=== PATIENT | female | born 1970 | race Caucasian/White ===

== ENCOUNTER → 2017-03-30 | Outpatient (CLI) | payer OTHER ==
[~2017-03-30] MED LIST: BARIUM SUSPENSION 2.1% (VANILLA SILQ) 450 ML PO ONE; CATHETER FLUSH 10 ML SYR IV PRN; IOHEXOL 350 MG/ML 100 ML (OMNIPAQUE 350) VIAL IV ONE; NS 100 ML (IVPB) BAG IV ONE
--- NOTE | 2017-03-30 13:43 | Diagnostic Imaging Report ---
PROCEDURE: CT chest and abdomen with contrast. TECHNIQUE: Multiple contiguous axial images were obtained through the chest and abdomen after the administration of intravenous contrast. INDICATION: Pancreatic cancer. No priors. FINDINGS: Chest: No lung mass or suspicious pulmonary nodule. There is no thoracic adenopathy or effusion. No infiltrate. Osseous structures unremarkable. Abdomen and pelvis: There is resection of the pancreatic head and neck with no abscess, hematoma or findings of anastomotic leak. There is no extravasation of the enteric contrast media which has reached the mid small bowel. There is patency of the celiac, the superior mesenteric and the inferior mesenteric as well as those vessels' primary branches. Stomach was not felt pathologically distended. There is a moderate severity of hepatic steatosis without an appreciable liver mass. There is no adrenal lesion. Kidneys unobstructed. There is some postoperative induration of the abdominal wall subcutaneous fat with no rectus sheath defect or fluid collection. There is no ascites. No free air. IMPRESSION: 1. Chest: No evidence of metastatic disease. 2. Abdomen: Recent postoperative change without fluid collection, biliary dilatation, adenopathy or mass. Dictated by: Dictated on workstation # [id number]
== END ==
LOC: RAD 11:45
PROVIDERS: ATTEND Internal Medicine Hematology & Oncology
DX: C25.9 Malignant neoplasm of pancreas, unspecified (principal); Z98.890 Other specified postprocedural states
CPT/HCPCS: 71260; 74160

== ENCOUNTER 2017-06-01 13:41 | Outpatient (RCR) | payer OTHER ==
[2017-03-30 11:37] LABS: BASOPHILS % (AUTO) 1 % (0-10); EOSINOPHILS # (AUTO) 0.1 10^3/uL (0.0-0.3); EOSINOPHILS % (AUTO) 2 % (0-10); HEMATOCRIT 36 % (35-52); HEMOGLOBIN 11.8 G/DL (11.5-16.0); LYMPHOCYTES # (AUTO) 1.4 X 10^3 (1.0-4.0); LYMPHOCYTES % (AUTO) 37 % (12-44); MEAN CORPUSCULAR HEMOGLOBIN 29 PG (25-34); MEAN CORPUSCULAR HGB CONC 33 G/DL (32-36); MEAN CORPUSCULAR VOLUME 88 FL (80-99); MEAN PLATELET VOLUME 11.8 FL (7.4-10.4); MONOCYTES # (AUTO) 0.4 X 10^3 (0.0-1.0); MONOCYTES % (AUTO) 10 % (0-12); NEUTROPHILS # (AUTO) 1.8 X 10^3 (1.8-7.8); NEUTROPHILS % (AUTO) 50 % (42-75); PLATELET COUNT 183 10^3/uL (130-400); RED BLOOD COUNT 4.09 10^6/uL (4.35-5.85); RED CELL DISTRIBUTION WIDTH 13.5 % (10.0-14.5); WHITE BLOOD COUNT 3.7 10^3/uL (4.3-11.0)
[2017-03-30 12:02] LABS: ALANINE AMINOTRANSFERASE 23 U/L (0-55); ALBUMIN 3.4 GM/DL (3.2-4.5); ALKALINE PHOSPHATASE 59 U/L (40-136); BILIRUBIN,TOTAL 0.9 MG/DL (0.1-1.0); BUN/CREATININE RATIO 18; CALCIUM 8.9 MG/DL (8.5-10.1); CARBON DIOXIDE 24 MMOL/L (21-32); CHLORIDE 108 MMOL/L (98-107); CREATININE SERUM 0.66 MG/DL (0.60-1.30); GFR ESTIMATED > 60; GLUCOSE 91 MG/DL (70-105); SODIUM 141 MMOL/L (135-145); TOTAL PROTEIN 6.3 GM/DL (6.4-8.2)
[2017-04-06 14:21] LABS: BASOPHILS % (AUTO) 1 % (0-10); EOSINOPHILS % (AUTO) 2 % (0-10); HEMATOCRIT 35 % (35-52); HEMOGLOBIN 11.7 G/DL (11.5-16.0); LYMPHOCYTES # (AUTO) 0.9 X 10^3 (1.0-4.0); LYMPHOCYTES % (AUTO) 67 % (12-44); MEAN CORPUSCULAR HEMOGLOBIN 29 PG (25-34); MEAN CORPUSCULAR HGB CONC 33 G/DL (32-36); MEAN CORPUSCULAR VOLUME 86 FL (80-99); MEAN PLATELET VOLUME 11.4 FL (7.4-10.4); MONOCYTES # (AUTO) 0.1 X 10^3 (0.0-1.0); MONOCYTES % (AUTO) 8 % (0-12); NEUTROPHILS # (AUTO) 0.3 X 10^3 (1.8-7.8); NEUTROPHILS % (AUTO) 23 % (42-75); PLATELET COUNT 155 10^3/uL (130-400); RED BLOOD COUNT 4.07 10^6/uL (4.35-5.85); RED CELL DISTRIBUTION WIDTH 12.7 % (10.0-14.5)
[2017-04-06 14:25] LABS: BUN/CREATININE RATIO 8; CALCIUM 8.9 MG/DL (8.5-10.1); CARBON DIOXIDE 25 MMOL/L (21-32); CHLORIDE 107 MMOL/L (98-107); CREATININE SERUM 0.62 MG/DL (0.60-1.30); GFR ESTIMATED > 60; GLUCOSE 121 MG/DL (70-105); POTASSIUM 3.8 MMOL/L (3.6-5.0); SODIUM 141 MMOL/L (135-145)
[2017-04-06 14:27] LABS: WHITE BLOOD COUNT 1.3 10^3/uL (4.3-11.0)
[2017-04-13 13:34] LABS: BASOPHILS % (AUTO) 0 % (0-10); EOSINOPHILS % (AUTO) 1 % (0-10); HEMATOCRIT 33 % (35-52); LYMPHOCYTES # (AUTO) 0.8 X 10^3 (1.0-4.0); LYMPHOCYTES % (AUTO) 50 % (12-44); MEAN CORPUSCULAR HEMOGLOBIN 29 PG (25-34); MEAN CORPUSCULAR HGB CONC 33 G/DL (32-36); MEAN CORPUSCULAR VOLUME 87 FL (80-99); MEAN PLATELET VOLUME 10.1 FL (7.4-10.4); MONOCYTES # (AUTO) 0.1 X 10^3 (0.0-1.0); MONOCYTES % (AUTO) 9 % (0-12); NEUTROPHILS # (AUTO) 0.6 X 10^3 (1.8-7.8); NEUTROPHILS % (AUTO) 40 % (42-75); PLATELET COUNT 139 10^3/uL (130-400); RED BLOOD COUNT 3.83 10^6/uL (4.35-5.85); RED CELL DISTRIBUTION WIDTH 13.1 % (10.0-14.5); WHITE BLOOD COUNT 1.5 10^3/uL (4.3-11.0)
[2017-04-13 13:51] LABS: BUN/CREATININE RATIO 11; CALCIUM 8.3 MG/DL (8.5-10.1); CARBON DIOXIDE 25 MMOL/L (21-32); CHLORIDE 107 MMOL/L (98-107); GFR ESTIMATED > 60; GLUCOSE 108 MG/DL (70-105); POTASSIUM 3.9 MMOL/L (3.6-5.0); SODIUM 139 MMOL/L (135-145)
[2017-04-21 13:20] LABS: BASOPHILS % (AUTO) 1 % (0-10); EOSINOPHILS % (AUTO) 0 % (0-10); HEMATOCRIT 33 % (35-52); HEMOGLOBIN 11.2 G/DL (11.5-16.0); LYMPHOCYTES # (AUTO) 0.5 X 10^3 (1.0-4.0); LYMPHOCYTES % (AUTO) 38 % (12-44); MEAN CORPUSCULAR HEMOGLOBIN 29 PG (25-34); MEAN CORPUSCULAR HGB CONC 34 G/DL (32-36); MEAN CORPUSCULAR VOLUME 85 FL (80-99); MONOCYTES # (AUTO) 0.1 X 10^3 (0.0-1.0); MONOCYTES % (AUTO) 11 % (0-12); NEUTROPHILS # (AUTO) 0.7 X 10^3 (1.8-7.8); NEUTROPHILS % (AUTO) 51 % (42-75); PLATELET COUNT 123 10^3/uL (130-400); RED BLOOD COUNT 3.89 10^6/uL (4.35-5.85)
[2017-04-21 13:22] LABS: WHITE BLOOD COUNT 1.3 10^3/uL (4.3-11.0)
[2017-04-21 13:45] LABS: BUN/CREATININE RATIO 4; CALCIUM 8.5 MG/DL (8.5-10.1); CARBON DIOXIDE 26 MMOL/L (21-32); CHLORIDE 103 MMOL/L (98-107); CREATININE SERUM 0.71 MG/DL (0.60-1.30); GFR ESTIMATED > 60; GLUCOSE 107 MG/DL (70-105); SODIUM 139 MMOL/L (135-145)
[2017-04-27 08:58] LABS: BASOPHILS % (AUTO) 1 % (0-10); EOSINOPHILS % (AUTO) 1 % (0-10); HEMATOCRIT 33 % (35-52); LYMPHOCYTES # (AUTO) 0.6 X 10^3 (1.0-4.0); LYMPHOCYTES % (AUTO) 46 % (12-44); MEAN CORPUSCULAR HEMOGLOBIN 29 PG (25-34); MEAN CORPUSCULAR HGB CONC 34 G/DL (32-36); MEAN CORPUSCULAR VOLUME 86 FL (80-99); MEAN PLATELET VOLUME 10.4 FL (7.4-10.4); MONOCYTES # (AUTO) 0.2 X 10^3 (0.0-1.0); MONOCYTES % (AUTO) 19 % (0-12); NEUTROPHILS # (AUTO) 0.4 X 10^3 (1.8-7.8); NEUTROPHILS % (AUTO) 34 % (42-75); PLATELET COUNT 88 10^3/uL (130-400); RED BLOOD COUNT 3.79 10^6/uL (4.35-5.85); RED CELL DISTRIBUTION WIDTH 15.1 % (10.0-14.5)
[2017-04-27 09:01] LABS: WHITE BLOOD COUNT 1.2 10^3/uL (4.3-11.0)
[2017-04-27 09:16] LABS: ALANINE AMINOTRANSFERASE 50 U/L (0-55); ALBUMIN 3.6 GM/DL (3.2-4.5); ALKALINE PHOSPHATASE 63 U/L (40-136); BILIRUBIN,TOTAL 1.4 MG/DL (0.1-1.0); BUN/CREATININE RATIO 5; CALCIUM 8.3 MG/DL (8.5-10.1); CARBON DIOXIDE 28 MMOL/L (21-32); CHLORIDE 106 MMOL/L (98-107); CREATININE SERUM 0.82 MG/DL (0.60-1.30); GFR ESTIMATED > 60; GLUCOSE 113 MG/DL (70-105); POTASSIUM 3.3 MMOL/L (3.6-5.0); SODIUM 142 MMOL/L (135-145); TOTAL PROTEIN 6.5 GM/DL (6.4-8.2)
[2017-05-01 11:22] LABS: BASOPHILS % (AUTO) 1 % (0-10); EOSINOPHILS % (AUTO) 2 % (0-10); HEMATOCRIT 34 % (35-52); HEMOGLOBIN 11.4 G/DL (11.5-16.0); LYMPHOCYTES # (AUTO) 0.4 X 10^3 (1.0-4.0); LYMPHOCYTES % (AUTO) 27 % (12-44); MEAN CORPUSCULAR HEMOGLOBIN 29 PG (25-34); MEAN CORPUSCULAR HGB CONC 34 G/DL (32-36); MEAN CORPUSCULAR VOLUME 87 FL (80-99); MEAN PLATELET VOLUME 11.2 FL (7.4-10.4); MONOCYTES # (AUTO) 0.4 X 10^3 (0.0-1.0); MONOCYTES % (AUTO) 28 % (0-12); NEUTROPHILS # (AUTO) 0.6 X 10^3 (1.8-7.8); NEUTROPHILS % (AUTO) 42 % (42-75); PLATELET COUNT 199 10^3/uL (130-400); RED BLOOD COUNT 3.91 10^6/uL (4.35-5.85)
[2017-05-01 11:24] LABS: WHITE BLOOD COUNT 1.4 10^3/uL (4.3-11.0)
[2017-05-01 11:40] LABS: ALANINE AMINOTRANSFERASE 30 U/L (0-55); ALBUMIN 3.5 GM/DL (3.2-4.5); ALKALINE PHOSPHATASE 74 U/L (40-136); BILIRUBIN,TOTAL 1.1 MG/DL (0.1-1.0); BUN/CREATININE RATIO 6; CALCIUM 8.5 MG/DL (8.5-10.1); CARBON DIOXIDE 27 MMOL/L (21-32); CHLORIDE 105 MMOL/L (98-107); CREATININE SERUM 0.67 MG/DL (0.60-1.30); GFR ESTIMATED > 60; GLUCOSE 112 MG/DL (70-105); POTASSIUM 3.6 MMOL/L (3.6-5.0); SODIUM 140 MMOL/L (135-145); TOTAL PROTEIN 6.5 GM/DL (6.4-8.2)
[2017-05-08 14:06] LABS: BASOPHILS % (AUTO) 1 % (0-10); EOSINOPHILS # (AUTO) 0.3 10^3/uL (0.0-0.3); EOSINOPHILS % (AUTO) 10 % (0-10); HEMATOCRIT 36 % (35-52); HEMOGLOBIN 12.1 G/DL (11.5-16.0); LYMPHOCYTES # (AUTO) 0.4 X 10^3 (1.0-4.0); LYMPHOCYTES % (AUTO) 15 % (12-44); MEAN CORPUSCULAR HEMOGLOBIN 30 PG (25-34); MEAN CORPUSCULAR HGB CONC 34 G/DL (32-36); MEAN CORPUSCULAR VOLUME 88 FL (80-99); MEAN PLATELET VOLUME 11.7 FL (7.4-10.4); MONOCYTES # (AUTO) 0.7 X 10^3 (0.0-1.0); MONOCYTES % (AUTO) 23 % (0-12); NEUTROPHILS # (AUTO) 1.4 X 10^3 (1.8-7.8); NEUTROPHILS % (AUTO) 51 % (42-75); PLATELET COUNT 202 10^3/uL (130-400); RED BLOOD COUNT 4.09 10^6/uL (4.35-5.85); RED CELL DISTRIBUTION WIDTH 18.4 % (10.0-14.5); WHITE BLOOD COUNT 2.8 10^3/uL (4.3-11.0)
[2017-05-15 14:41] LABS: BASOPHILS % (AUTO) 1 % (0-10); EOSINOPHILS # (AUTO) 0.1 10^3/uL (0.0-0.3); EOSINOPHILS % (AUTO) 6 % (0-10); HEMATOCRIT 33 % (35-52); HEMOGLOBIN 12.1 G/DL (11.5-16.0); LYMPHOCYTES # (AUTO) 0.2 X 10^3 (1.0-4.0); LYMPHOCYTES % (AUTO) 9 % (12-44); MEAN CORPUSCULAR HEMOGLOBIN 30 PG (25-34); MEAN CORPUSCULAR HGB CONC 37 G/DL (32-36); MEAN CORPUSCULAR VOLUME 81 FL (80-99); MEAN PLATELET VOLUME 11.2 FL (7.4-10.4); MONOCYTES # (AUTO) 0.4 X 10^3 (0.0-1.0); MONOCYTES % (AUTO) 19 % (0-12); NEUTROPHILS # (AUTO) 1.5 X 10^3 (1.8-7.8); NEUTROPHILS % (AUTO) 65 % (42-75); PLATELET COUNT 142 10^3/uL (130-400); RED BLOOD COUNT 4.07 10^6/uL (4.35-5.85); RED CELL DISTRIBUTION WIDTH 17.8 % (10.0-14.5); WHITE BLOOD COUNT 2.3 10^3/uL (4.3-11.0)
[2017-05-15 14:53] LABS: ALANINE AMINOTRANSFERASE 30 U/L (0-55); ALBUMIN 3.8 GM/DL (3.2-4.5); ALKALINE PHOSPHATASE 73 U/L (40-136); BILIRUBIN,TOTAL 1.2 MG/DL (0.1-1.0); BUN/CREATININE RATIO 8; CARBON DIOXIDE 27 MMOL/L (21-32); CHLORIDE 103 MMOL/L (98-107); CREATININE SERUM 0.73 MG/DL (0.60-1.30); GFR ESTIMATED > 60; GLUCOSE 135 MG/DL (70-105); POTASSIUM 3.6 MMOL/L (3.6-5.0); SODIUM 139 MMOL/L (135-145); TOTAL PROTEIN 6.9 GM/DL (6.4-8.2)
[2017-05-26 10:11] LABS: BASOPHILS % (AUTO) 1 % (0-10); EOSINOPHILS # (AUTO) 0.3 10^3/uL (0.0-0.3); EOSINOPHILS % (AUTO) 14 % (0-10); HEMATOCRIT 35 % (35-52); LYMPHOCYTES # (AUTO) 0.2 X 10^3 (1.0-4.0); LYMPHOCYTES % (AUTO) 7 % (12-44); MEAN CORPUSCULAR HEMOGLOBIN 31 PG (25-34); MEAN CORPUSCULAR HGB CONC 34 G/DL (32-36); MEAN CORPUSCULAR VOLUME 89 FL (80-99); MEAN PLATELET VOLUME 10.8 FL (7.4-10.4); MONOCYTES # (AUTO) 0.4 X 10^3 (0.0-1.0); MONOCYTES % (AUTO) 17 % (0-12); NEUTROPHILS # (AUTO) 1.3 X 10^3 (1.8-7.8); NEUTROPHILS % (AUTO) 61 % (42-75); PLATELET COUNT 120 10^3/uL (130-400); RED BLOOD COUNT 3.94 10^6/uL (4.35-5.85); RED CELL DISTRIBUTION WIDTH 17.8 % (10.0-14.5); WHITE BLOOD COUNT 2.2 10^3/uL (4.3-11.0)
[2017-05-26 10:31] LABS: ALANINE AMINOTRANSFERASE 43 U/L (0-55); ALBUMIN 3.7 GM/DL (3.2-4.5); ALKALINE PHOSPHATASE 68 U/L (40-136); BILIRUBIN,TOTAL 0.9 MG/DL (0.1-1.0); BUN/CREATININE RATIO 7; CALCIUM 9.2 MG/DL (8.5-10.1); CARBON DIOXIDE 27 MMOL/L (21-32); CHLORIDE 105 MMOL/L (98-107); CREATININE SERUM 0.71 MG/DL (0.60-1.30); GFR ESTIMATED > 60; GLUCOSE 136 MG/DL (70-105); POTASSIUM 4.1 MMOL/L (3.6-5.0); SODIUM 142 MMOL/L (135-145); TOTAL PROTEIN 6.8 GM/DL (6.4-8.2)
[~2017-06-01] VITALS: Ht 175.9 cm; Wt 91.6 kg
[~2017-06-01 13:41] MED LIST changes: -BARIUM SUSPENSION 2.1% (VANILLA SILQ) 450 ML PO ONE; -CATHETER FLUSH 10 ML SYR IV PRN; +GEMCITABINE HCL (GENERIC) 1,000 MG, GEMCITABINE HCL (GENERIC) 700 MG in NS (IVPB) CANCE... IV SCH; +GEMCITABINE HCL IV SCH; -IOHEXOL 350 MG/ML 100 ML (OMNIPAQUE 350) VIAL IV ONE; -NS 100 ML (IVPB) BAG IV ONE; +NS IV 500 ML (CANCER CENTER) IV SCH; +ONDANSETRON 16 MG, DEXAMETHASONE 10 MG/NS 50 ML IVPB IV SCH; +[UNRECOGNIZED DRUG - OTHER] IV SCH
== END 2017-06-02 13:49 | disposition home or self-care (01) ==
LOC: ONC 13:41
PROVIDERS: ATTEND Internal Medicine Hematology & Oncology
DX: Z51.0 Encounter for antineoplastic radiation therapy (principal); Z51.11 Encounter for antineoplastic chemotherapy; C25.0 Malignant neoplasm of head of pancreas; I10 Essential (primary) hypertension; M32.9 Systemic lupus erythematosus, unspecified
CPT/HCPCS: 36415; 77300; 77301; 77332; 77334; 77336; 77338; 77385; 77386; 77470; 80048; 80053; 83735; 85025; 86301; 96375; 96413; 99213; 99214

== ENCOUNTER → 2017-07-15 | Outpatient (CLI) | payer OTHER ==
[~2017-07-15] MED LIST changes: +BARIUM SUSPENSION 2.1% (VANILLA SILQ) 450 ML PO ONE; +CATHETER FLUSH 10 ML SYR IV PRN; -GEMCITABINE HCL (GENERIC) 1,000 MG, GEMCITABINE HCL (GENERIC) 700 MG in NS (IVPB) CANCE... IV SCH; -GEMCITABINE HCL IV SCH; +IOHEXOL 350 MG/ML 100 ML (OMNIPAQUE 350) VIAL IV ONE; +NS 250 ML (IVPB) BAG IV ONE; -NS IV 500 ML (CANCER CENTER) IV SCH; -ONDANSETRON 16 MG, DEXAMETHASONE 10 MG/NS 50 ML IVPB IV SCH; -[UNRECOGNIZED DRUG - OTHER] IV SCH
--- NOTE | 2017-07-15 15:59 | Diagnostic Imaging Report ---
PROCEDURE: CT chest and abdomen with contrast. TECHNIQUE: Multiple contiguous axial images were obtained through the chest and abdomen after the administration of intravenous contrast. INDICATION: Pancreatic carcinoma. The study is performed for restaging. Correlation is made with prior study from 03/30/2017. CT chest: Small lymph nodes in the axillae bilaterally are noted. No pathologically enlarged nodes are seen. No hilar or mediastinal lymphadenopathy is detected. No pericardial or pleural fluid is identified. Tiny calcified subpleural nodule posterolateral right lower lobe is stable consistent with granuloma. No noncalcified pulmonary nodules or masses are seen. CT abdomen: Diffuse low-density throughout the liver is again noted consistent with hepatic steatosis. Ill-defined low density is identified in the inferior right lobe of the liver anteriorly, image 102 measuring 17 mm. It is nonspecific. This could represent an area of geographic fatty infiltration but close followup is recommended. Developing liver mass cannot be entirely excluded. Gallbladder is surgically absent. Postsurgical changes are again noted with resection of the pancreatic head and neck. The pancreatic body and tail are unremarkable. No pancreatic ductal dilatation is seen. The spleen is unremarkable. No adrenal mass is seen. Kidneys are unremarkable. Aorta is not aneurysmal. No central retroperitoneal lymphadenopathy is seen. Stomach is nondistended. There are no fluid collections identified. There is some induration in the fat in the right upper quadrant, similar to prior exam but no discrete mass is seen. Bowel loops are nondistended. There is no ascites. IMPRESSION: Postsurgical changes of a Whipple procedure. No residual or recurrent mass identified. There is hepatic steatosis present. There has been development of a small region of low density in the right lobe of the liver, described above and indeterminant. Continued close followup is recommended to confirm stability or resolution. No additional new abnormality is identified. Dictated by: Dictated on workstation # [id number]
== END ==
LOC: RAD 12:57
PROVIDERS: ATTEND Internal Medicine Hematology & Oncology
DX: C25.9 Malignant neoplasm of pancreas, unspecified (principal); K76.0 Fatty (change of) liver, not elsewhere classified; Z90.89 Acquired absence of other organs; Z98.890 Other specified postprocedural states
CPT/HCPCS: 71260; 74160

== ENCOUNTER → 2017-08-17 | Outpatient (CLI) | payer OTHER ==
--- NOTE | 2017-08-17 15:58 | Diagnostic Imaging Report ---
INDICATION: Abdominal pain and vomiting. Patient has history of pancreatic carcinoma. TIME OF EXAM: 02:57 p.m. There are surgical clips in the right upper quadrant as well as within the pelvis. Bowel gas pattern is normal. No bowel obstruction is seen. No free air is identified. No pathologic calcifications are identified. IMPRESSION: No acute abnormality is detected. Results were discussed with Dr. Tolliver prior to this dictation. Dictated by: Dictated on workstation # [id number]
== END ==
LOC: RAD 14:23
PROVIDERS: ATTEND Internal Medicine Hematology & Oncology
DX: C25.0 Malignant neoplasm of head of pancreas (principal)
CPT/HCPCS: 74018

== ENCOUNTER → 2017-10-12 | Outpatient (CLI) | payer OTHER ==
[~2017-10-12] MED LIST changes: +NS 100 ML (IVPB) BAG IV ONE; -NS 250 ML (IVPB) BAG IV ONE
--- NOTE | 2017-10-12 12:51 | Diagnostic Imaging Report ---
PROCEDURE: CT chest and abdomen with contrast. INDICATION: Pancreatic cancer. COMPARISON: Exam compared to 07/15/2017. TECHNIQUE: Oral contrast media was administered. IV contrast given. CT chest and abdomen then performed. FINDINGS: CHEST: There has been the development of small right and minute left pleural effusions. The pleural fluid is nonloculated and on the right layers to a maximal depth of 1.8 cm with trace subjacent passive atelectasis. There is no lung mass or suspicious pulmonary nodule, and there is no thoracic lymphadenopathy. No destructive osseous lesion. ABDOMEN: Postsurgical changes of a Whipple present. In the right upper quadrant adjacent to the resection margin of the pancreas is tubular tortuous soft tissue presumed to be the segment of small bowel and reflective of the hepaticojejunostomy. No definite regional abnormal soft tissue is found, and the residual pancreatic parenchyma appears unremarkable. There is hepatic steatosis with foci of relative hypodensity in the periphery of the liver no longer apparent. There are a few zones of relative fatty sparing. No liver masses felt present, and there is no pathological dilatation of the bile ducts. Spleen is unremarkable. There is a small volume ascites, perhaps minimally increased without evidence for its loculation. The adrenals are negative, and the kidneys are unobstructed. There is thickening of the shore of the visualized ascending colon and proximal transverse colon consistent with nonspecific colitis; correlate with any symptomatology. No soft tissue mass along the root of the mesentery. The periaortic retroperitoneum is unremarkable. No abdominal wall fluid collection. IMPRESSION: CHEST: Minute left and small right pleural effusions with no lung mass or adenopathy. No evidence for PE. ABDOMEN: Fatty infiltration of the liver with resolution of the likely areas of focal fatty intensification previously noted. No evidence for a liver mass. Postsurgical changes of a Whipple. A segment of small bowel presumed the hepaticojejunostomy noted which could obscure adjacent soft tissue pathology. No identifiable mass. Small volume ascites increased with features likely reflective of nonspecific proximal colitis. No perforation, obstruction, or abscess. Dictated by: Dictated on workstation # [id number]
== END ==
LOC: RAD 10:14
PROVIDERS: ATTEND Internal Medicine Hematology & Oncology
DX: C25.0 Malignant neoplasm of head of pancreas (principal); J90 Pleural effusion, not elsewhere classified; K76.0 Fatty (change of) liver, not elsewhere classified
CPT/HCPCS: 71260; 74160

== ENCOUNTER 2017-12-03 10:10 | Outpatient (RCR) | payer OTHER ==
[2017-09-07 14:44] LABS: BASOPHILS % (AUTO) 1 % (0-10); EOSINOPHILS % (AUTO) 1 % (0-10); HEMATOCRIT 31 % (35-52); HEMOGLOBIN 10.6 G/DL (11.5-16.0); LYMPHOCYTES # (AUTO) 0.5 X 10^3 (1.0-4.0); LYMPHOCYTES % (AUTO) 25 % (12-44); MEAN CORPUSCULAR HEMOGLOBIN 32 PG (25-34); MEAN CORPUSCULAR HGB CONC 35 G/DL (32-36); MEAN CORPUSCULAR VOLUME 91 FL (80-99); MEAN PLATELET VOLUME 10.5 FL (7.4-10.4); MONOCYTES # (AUTO) 0.4 X 10^3 (0.0-1.0); MONOCYTES % (AUTO) 19 % (0-12); NEUTROPHILS # (AUTO) 1.1 X 10^3 (1.8-7.8); NEUTROPHILS % (AUTO) 55 % (42-75); PLATELET COUNT 106 10^3/uL (130-400); RED BLOOD COUNT 3.35 10^6/uL (4.35-5.85); RED CELL DISTRIBUTION WIDTH 13.4 % (10.0-14.5)
[2017-09-07 15:01] LABS: ALANINE AMINOTRANSFERASE 21 U/L (0-55); ALBUMIN 3.1 GM/DL (3.2-4.5); ALKALINE PHOSPHATASE 75 U/L (40-136); BILIRUBIN,TOTAL 1.2 MG/DL (0.1-1.0); BUN/CREATININE RATIO 7; CALCIUM 8.2 MG/DL (8.5-10.1); CARBON DIOXIDE 26 MMOL/L (21-32); CHLORIDE 106 MMOL/L (98-107); CREATININE SERUM 0.69 MG/DL (0.60-1.30); GFR ESTIMATED > 60; GLUCOSE 101 MG/DL (70-105); POTASSIUM 3.6 MMOL/L (3.6-5.0); SODIUM 138 MMOL/L (135-145); TOTAL PROTEIN 6.3 GM/DL (6.4-8.2)
[2017-10-15 11:07] LABS: ABSOLUTE RETIC # 36 10e9/L (24-90); BASOPHILS % (AUTO) 1 % (0-10); EOSINOPHILS % (AUTO) 2 % (0-10); HEMATOCRIT 32 % (35-52); HEMOGLOBIN 10.7 G/DL (11.5-16.0); LYMPHOCYTES # (AUTO) 0.3 X 10^3 (1.0-4.0); LYMPHOCYTES % (AUTO) 21 % (12-44); MEAN CORPUSCULAR HEMOGLOBIN 30 PG (25-34); MEAN CORPUSCULAR HGB CONC 34 G/DL (32-36); MEAN CORPUSCULAR VOLUME 90 FL (80-99); MEAN PLATELET VOLUME 9.2 FL (7.4-10.4); MONOCYTES # (AUTO) 0.3 X 10^3 (0.0-1.0); MONOCYTES % (AUTO) 17 % (0-12); NEUTROPHILS # (AUTO) 0.9 X 10^3 (1.8-7.8); NEUTROPHILS % (AUTO) 59 % (42-75); PLATELET COUNT 120 10^3/uL (130-400); RED BLOOD COUNT 3.51 10^6/uL (4.35-5.85); RED CELL DISTRIBUTION WIDTH 15.8 % (10.0-14.5); RETICULOCYTE % 1.01 % (0.50-2.40); WHITE BLOOD COUNT 1.6 10^3/uL (4.3-11.0)
[2017-10-15 11:26] LABS: ALANINE AMINOTRANSFERASE 19 U/L (0-55); ALBUMIN 2.8 GM/DL (3.2-4.5); ALKALINE PHOSPHATASE 71 U/L (40-136); BILIRUBIN,TOTAL 1.1 MG/DL (0.1-1.0); BUN/CREATININE RATIO 6; CALCIUM 8.1 MG/DL (8.5-10.1); CARBON DIOXIDE 24 MMOL/L (21-32); CHLORIDE 110 MMOL/L (98-107); CREATININE SERUM 0.63 MG/DL (0.60-1.30); GFR ESTIMATED > 60; GLUCOSE 101 MG/DL (70-105); POTASSIUM 4.2 MMOL/L (3.6-5.0); SODIUM 143 MMOL/L (135-145); TOTAL PROTEIN 5.8 GM/DL (6.4-8.2)
[2017-12-03 10:44] LABS: BASOPHILS % (AUTO) 0 % (0-10); EOSINOPHILS % (AUTO) 2 % (0-10); HEMATOCRIT 31 % (35-52); HEMOGLOBIN 10.5 G/DL (11.5-16.0); LYMPHOCYTES # (AUTO) 0.3 X 10^3 (1.0-4.0); LYMPHOCYTES % (AUTO) 17 % (12-44); MEAN CORPUSCULAR HEMOGLOBIN 31 PG (25-34); MEAN CORPUSCULAR HGB CONC 34 G/DL (32-36); MEAN CORPUSCULAR VOLUME 90 FL (80-99); MEAN PLATELET VOLUME 10.7 FL (7.4-10.4); MONOCYTES # (AUTO) 0.3 X 10^3 (0.0-1.0); MONOCYTES % (AUTO) 19 % (0-12); NEUTROPHILS # (AUTO) 1.1 X 10^3 (1.8-7.8); NEUTROPHILS % (AUTO) 62 % (42-75); PLATELET COUNT 119 10^3/uL (130-400); RED BLOOD COUNT 3.41 10^6/uL (4.35-5.85); RED CELL DISTRIBUTION WIDTH 14.9 % (10.0-14.5); WHITE BLOOD COUNT 1.7 10^3/uL (4.3-11.0)
[2017-12-03 11:06] LABS: ALANINE AMINOTRANSFERASE 16 U/L (0-55); ALKALINE PHOSPHATASE 60 U/L (40-136); BILIRUBIN,TOTAL 1.2 MG/DL (0.1-1.0); BUN/CREATININE RATIO 10; CALCIUM 8.2 MG/DL (8.5-10.1); CARBON DIOXIDE 25 MMOL/L (21-32); CHLORIDE 111 MMOL/L (98-107); CREATININE SERUM 0.62 MG/DL (0.60-1.30); GFR ESTIMATED > 60; GLUCOSE 83 MG/DL (70-105); POTASSIUM 3.7 MMOL/L (3.6-5.0); SODIUM 140 MMOL/L (135-145)
== END 2017-12-06 | disposition home or self-care (01) ==
LOC: ONC 10:10
PROVIDERS: ATTEND Internal Medicine Hematology & Oncology
DX: C25.0 Malignant neoplasm of head of pancreas (principal); D61.818 Other pancytopenia; I10 Essential (primary) hypertension; M32.9 Systemic lupus erythematosus, unspecified; R94.5 Abnormal results of liver function studies; Z79.899 Other long term (current) drug therapy
CPT/HCPCS: 36415; 80053; 82728; 82784; 83090; 83540; 83883; 83921; 84155; 84165; 84443; 85025; 85045; 86301; 99213

== ENCOUNTER → 2018-01-13 | Outpatient (CLI) | payer OTHER ==
--- NOTE | 2018-01-13 10:57 | Diagnostic Imaging Report ---
PROCEDURE: CT chest, abdomen, and pelvis with contrast. TECHNIQUE: Multiple contiguous axial images were obtained through the chest, abdomen, and pelvis after the administration of intravenous contrast. INDICATION: Pancreatic carcinoma. COMPARISON: 10/12/2017. FINDINGS: CT CHEST: Small lymph nodes are identified in the axillae bilaterally. These appear similar to the prior exam. No definite mediastinal or hilar lymphadenopathy is detected. No pericardial fluid is identified. Bilateral pleural effusions persist. The pleural fluid on the right does appear to be increased since the prior CT measuring to a thickness of approximately 3 cm compared with 1.8 cm on the prior exam. The pleural fluid on the left may be slightly increased as well but remains very small. There is some subjacent atelectasis in the right lower lobe. No parenchymal mass is identified. The central airway is patent. IMPRESSION: There has been a mild increase in the bilateral pleural effusions when compared to the prior CT from 10/12/2017. No thoracic lymphadenopathy is detected. CT ABDOMEN AND PELVIS: No discrete liver mass is detected. The gallbladder is surgically absent. No biliary ductal dilatation is seen. Postsurgical changes of a Whipple procedure are again noted. The pancreatic body and tail are atrophic. A small amount of fluid in the cheryl hepatis as well as the perihepatic and perisplenic regions is noted, similar to perhaps slightly increased when compared with the prior CT from October. No adrenal mass is seen. The kidneys are unremarkable. The aorta is non-aneurysmal. No definite mass or adenopathy is detected. The bowel loops appear to be normal in caliber. The inflammatory changes adjacent to the ascending colon and proximal transverse colon appear improved but remain mildly present. Imaging through the pelvis does show a small amount of free fluid. The bladder is grossly unremarkable. No pelvic lymphadenopathy is seen. IMPRESSION: Status post Whipple procedure. No definite residual or recurrent mass is identified. There has been a slight increase in the degree of abdominal and pelvic ascites since the prior exam. No liver mass is detected. The inflammatory changes in the right abdomen on the prior CT have improved. Dictated by: Dictated on workstation # [id number]
== END ==
LOC: RAD 09:59
PROVIDERS: ATTEND Internal Medicine Hematology & Oncology
DX: C25.0 Malignant neoplasm of head of pancreas (principal); R18.8 Other ascites; J90 Pleural effusion, not elsewhere classified; Z90.49 Acquired absence of other specified parts of digestive tract
CPT/HCPCS: 71260; 74177

== ENCOUNTER 2018-01-19 10:44 | Outpatient (RCR) | payer OTHER ==
[2018-01-13 09:59] LABS: BASOPHILS % (AUTO) 1 % (0-10); EOSINOPHILS % (AUTO) 2 % (0-10); HEMATOCRIT 32 % (35-52); HEMOGLOBIN 10.8 G/DL (11.5-16.0); LYMPHOCYTES # (AUTO) 0.3 X 10^3 (1.0-4.0); LYMPHOCYTES % (AUTO) 21 % (12-44); MEAN CORPUSCULAR HEMOGLOBIN 31 PG (25-34); MEAN CORPUSCULAR HGB CONC 34 G/DL (32-36); MEAN CORPUSCULAR VOLUME 90 FL (80-99); MONOCYTES # (AUTO) 0.2 X 10^3 (0.0-1.0); MONOCYTES % (AUTO) 16 % (0-12); NEUTROPHILS # (AUTO) 0.9 X 10^3 (1.8-7.8); NEUTROPHILS % (AUTO) 61 % (42-75); PLATELET COUNT 113 10^3/uL (130-400); RED BLOOD COUNT 3.51 10^6/uL (4.35-5.85); WHITE BLOOD COUNT 1.5 10^3/uL (4.3-11.0)
[2018-01-13 10:19] LABS: ALANINE AMINOTRANSFERASE 18 U/L (0-55); ALBUMIN 3.4 GM/DL (3.2-4.5); ALKALINE PHOSPHATASE 58 U/L (40-136); BUN/CREATININE RATIO 10; CALCIUM 8.7 MG/DL (8.5-10.1); CARBON DIOXIDE 23 MMOL/L (21-32); CHLORIDE 108 MMOL/L (98-107); CREATININE SERUM 0.71 MG/DL (0.60-1.30); GFR ESTIMATED > 60; GLUCOSE 88 MG/DL (70-105); POTASSIUM 3.7 MMOL/L (3.6-5.0); SODIUM 139 MMOL/L (135-145); TOTAL PROTEIN 6.7 GM/DL (6.4-8.2)
== END 2018-02-07 | disposition home or self-care (01) ==
LOC: ONC 10:44
PROVIDERS: ATTEND Internal Medicine Hematology & Oncology
DX: C25.0 Malignant neoplasm of head of pancreas (principal); I10 Essential (primary) hypertension; M32.9 Systemic lupus erythematosus, unspecified; Z79.899 Other long term (current) drug therapy
CPT/HCPCS: 36415; 80053; 85025; 86301; 99213

== ENCOUNTER 2018-04-28 13:10 | Outpatient (RCR) | payer OTHER ==
[2018-03-11 11:15] LABS: ABSOLUTE RETIC # 24 10e9/L (24-90); BASOPHILS % (AUTO) 1 % (0-10); EOSINOPHILS # (AUTO) 0.1 10^3/uL (0.0-0.3); EOSINOPHILS % (AUTO) 3 % (0-10); HEMATOCRIT 32 % (35-52); HEMOGLOBIN 10.5 G/DL (11.5-16.0); LYMPHOCYTES # (AUTO) 0.4 X 10^3 (1.0-4.0); LYMPHOCYTES % (AUTO) 20 % (12-44); MEAN CORPUSCULAR HEMOGLOBIN 30 PG (25-34); MEAN CORPUSCULAR HGB CONC 33 G/DL (32-36); MEAN CORPUSCULAR VOLUME 91 FL (80-99); MEAN PLATELET VOLUME 10.4 FL (7.4-10.4); MONOCYTES # (AUTO) 0.3 X 10^3 (0.0-1.0); MONOCYTES % (AUTO) 18 % (0-12); NEUTROPHILS # (AUTO) 1.1 X 10^3 (1.8-7.8); NEUTROPHILS % (AUTO) 59 % (42-75); PLATELET COUNT 118 10^3/uL (130-400); RETICULOCYTE % 0.69 % (0.50-2.40); WHITE BLOOD COUNT 1.9 10^3/uL (4.3-11.0)
[2018-03-11 11:46] LABS: BAND NEUTROPHILS 4 %; BASOPHILS % (MANUAL) 1 %; EOSINOPHILS % (MANUAL) 3 %; LYMPHOCYTES % (MANUAL) 13 %; MONOCYTES % (MANUAL) 17 %; NEUTROPHILS % (MANUAL) 60 %
[2018-03-11 11:47] LABS: ANISOCYTOSIS SLIGHT; ELLIPT/OVALOCYTES MODERATE; REACTIVE LYMPHOCYTES 2 %
[2018-03-11 13:06] LABS: FREE T4 (FREE THYROXINE) 0.84 NG/DL (0.70-1.48)
[2018-04-28 13:47] LABS: BASOPHILS % (AUTO) 1 % (0-10); EOSINOPHILS % (AUTO) 2 % (0-10); HEMATOCRIT 34 % (35-52); LYMPHOCYTES # (AUTO) 0.3 X 10^3 (1.0-4.0); LYMPHOCYTES % (AUTO) 18 % (12-44); MEAN CORPUSCULAR HEMOGLOBIN 30 PG (25-34); MEAN CORPUSCULAR HGB CONC 32 G/DL (32-36); MEAN CORPUSCULAR VOLUME 93 FL (80-99); MEAN PLATELET VOLUME 10.8 FL (7.4-10.4); MONOCYTES # (AUTO) 0.3 X 10^3 (0.0-1.0); MONOCYTES % (AUTO) 18 % (0-12); NEUTROPHILS % (AUTO) 60 % (42-75); PLATELET COUNT 97 10^3/uL (130-400); RED CELL DISTRIBUTION WIDTH 14.9 % (10.0-14.5); WHITE BLOOD COUNT 1.7 10^3/uL (4.3-11.0)
== END 2018-06-09 | disposition home or self-care (01) ==
LOC: ONC 13:10
PROVIDERS: ATTEND Internal Medicine Hematology & Oncology
DX: C25.0 Malignant neoplasm of head of pancreas (principal); I10 Essential (primary) hypertension; M32.9 Systemic lupus erythematosus, unspecified; Z79.899 Other long term (current) drug therapy; Z90.49 Acquired absence of other specified parts of digestive tract
CPT/HCPCS: 36415; 38222; 82728; 84439; 84443; 85007; 85025; 85027; 85045; 88184; 88185; 88237; 88264; 88280; 88305; 88311; 88313; 99213

== ENCOUNTER → 2018-07-15 | Outpatient (CLI) | payer BC ==
--- NOTE | 2018-07-15 11:00 | Diagnostic Imaging Report ---
PROCEDURE: CT chest, abdomen, and pelvis with contrast. TECHNIQUE: Multiple contiguous axial images were obtained through the chest, abdomen, and pelvis after the administration of intravenous contrast. INDICATION: Pancreatic carcinoma. The study is performed to restage neoplasm. CORRELATION is made with prior CT study from 01/13/2018. CT CHEST: Multiple small axillary lymph nodes appear stable. No mediastinal or hilar lymphadenopathy is identified. No pericardial fluid is seen. Previously noted bilateral pleural effusions have resolved. Central airways are patent. Pulmonary parenchyma is unremarkable. There is a tiny calcified nodule in the superior segment right lower lobe. No noncalcified masses or infiltrates are seen. IMPRESSION: 1. Resolution of previously noted bilateral pleural effusions when compared with the exam from 01/13/2018. No thoracic lymphadenopathy or evidence of pulmonary metastatic disease is identified. CT ABDOMEN AND PELVIS: Postsurgical changes of Whipple procedure are again noted. Atrophy of the pancreatic body and tail is again noted. No discrete liver mass is identified. The gallbladder is surgically absent. No biliary ductal dilatation is seen. The spleen is unremarkable. No adrenal mass is identified. The kidneys are unremarkable. The aorta is non-aneurysmal. No central retroperitoneal or mesenteric lymphadenopathy is identified. Small amount of upper abdominal fluid noted on the previous CT has resolved. Bowel loops appear to be normal caliber. Inflammatory changes adjacent to the right colon persist but are improved. The bladder is unremarkable. No pelvic lymphadenopathy is identified. IMPRESSION: Post surgical changes of Whipple procedure. Upper abdominal ascites previously noted has resolved. No new abnormality is detected. No recurrent mass, adenopathy or evidence of metastatic disease is identified. Dictated by: Dictated on workstation # [id number]
== END ==
LOC: RAD 10:01
PROVIDERS: ATTEND Internal Medicine Hematology & Oncology
DX: C25.0 Malignant neoplasm of head of pancreas (principal); Z90.49 Acquired absence of other specified parts of digestive tract; Z98.890 Other specified postprocedural states
CPT/HCPCS: 71260; 74177

== ENCOUNTER 2018-09-21 14:52 | Outpatient (RCR) | payer BC, OTHER ==
[2018-07-12 09:41] LABS: BASOPHILS % (AUTO) 0 % (0-10); EOSINOPHILS % (AUTO) 1 % (0-10); HEMATOCRIT 37 % (35-52); HEMOGLOBIN 12.2 G/DL (11.5-16.0); LYMPHOCYTES # (AUTO) 0.9 X 10^3 (1.0-4.0); LYMPHOCYTES % (AUTO) 24 % (12-44); MEAN CORPUSCULAR HEMOGLOBIN 30 PG (25-34); MEAN CORPUSCULAR HGB CONC 33 G/DL (32-36); MEAN CORPUSCULAR VOLUME 91 FL (80-99); MEAN PLATELET VOLUME 10.2 FL (7.4-10.4); MONOCYTES # (AUTO) 0.4 X 10^3 (0.0-1.0); MONOCYTES % (AUTO) 11 % (0-12); NEUTROPHILS # (AUTO) 2.4 X 10^3 (1.8-7.8); NEUTROPHILS % (AUTO) 65 % (42-75); PLATELET COUNT 123 10^3/uL (130-400); RED CELL DISTRIBUTION WIDTH 13.7 % (10.0-14.5); WHITE BLOOD COUNT 3.7 10^3/uL (4.3-11.0)
[2018-07-12 09:59] LABS: ALANINE AMINOTRANSFERASE 20 U/L (0-55); ALBUMIN 3.8 GM/DL (3.2-4.5); ALKALINE PHOSPHATASE 60 U/L (40-136); BILIRUBIN,TOTAL 0.7 MG/DL (0.1-1.0); BUN/CREATININE RATIO 16; CALCIUM 8.9 MG/DL (8.5-10.1); CARBON DIOXIDE 26 MMOL/L (21-32); CHLORIDE 108 MMOL/L (98-107); CREATININE SERUM 0.81 MG/DL (0.60-1.30); GFR ESTIMATED > 60; GLUCOSE 104 MG/DL (70-105); POTASSIUM 3.6 MMOL/L (3.6-5.0); SODIUM 141 MMOL/L (135-145); TOTAL PROTEIN 6.7 GM/DL (6.4-8.2)
[2018-09-21 15:42] LABS: BASOPHILS % (AUTO) 1 % (0-10); EOSINOPHILS # (AUTO) 0.1 10^3/uL (0.0-0.3); EOSINOPHILS % (AUTO) 3 % (0-10); HEMATOCRIT 37 % (35-52); HEMOGLOBIN 12.5 G/DL (11.5-16.0); LYMPHOCYTES # (AUTO) 0.5 X 10^3 (1.0-4.0); LYMPHOCYTES % (AUTO) 23 % (12-44); MEAN CORPUSCULAR HEMOGLOBIN 31 PG (25-34); MEAN CORPUSCULAR HGB CONC 34 G/DL (32-36); MEAN CORPUSCULAR VOLUME 91 FL (80-99); MEAN PLATELET VOLUME 10.8 FL (7.4-10.4); MONOCYTES # (AUTO) 0.4 X 10^3 (0.0-1.0); MONOCYTES % (AUTO) 16 % (0-12); NEUTROPHILS # (AUTO) 1.2 X 10^3 (1.8-7.8); NEUTROPHILS % (AUTO) 57 % (42-75); PLATELET COUNT 97 10^3/uL (130-400); RED CELL DISTRIBUTION WIDTH 12.4 % (10.0-14.5); WHITE BLOOD COUNT 2.2 10^3/uL (4.3-11.0)
[2018-09-21 16:05] LABS: ALANINE AMINOTRANSFERASE 26 U/L (0-55); ALBUMIN 4.1 GM/DL (3.2-4.5); ALKALINE PHOSPHATASE 52 U/L (40-136); BILIRUBIN,TOTAL 0.9 MG/DL (0.1-1.0); BUN/CREATININE RATIO 12; CALCIUM 9.1 MG/DL (8.5-10.1); CARBON DIOXIDE 27 MMOL/L (21-32); CHLORIDE 104 MMOL/L (98-107); CREATININE SERUM 0.81 MG/DL (0.60-1.30); GFR ESTIMATED > 60; GLUCOSE 111 MG/DL (70-105); POTASSIUM 3.8 MMOL/L (3.6-5.0); SODIUM 139 MMOL/L (135-145); TOTAL PROTEIN 7.3 GM/DL (6.4-8.2)
== END 2018-10-10 | disposition home or self-care (01) ==
LOC: ONC 14:52
PROVIDERS: ATTEND Internal Medicine Hematology & Oncology
DX: C25.0 Malignant neoplasm of head of pancreas (principal); D70.1 Agranulocytosis secondary to cancer chemotherapy; E03.9 Hypothyroidism, unspecified; I10 Essential (primary) hypertension; M32.9 Systemic lupus erythematosus, unspecified; Z79.899 Other long term (current) drug therapy; Z90.49 Acquired absence of other specified parts of digestive tract
CPT/HCPCS: 36415; 80053; 82728; 84443; 85025; 86301; 99213

== ENCOUNTER → 2018-10-19 | Outpatient (CLI) | payer BC ==
[~2018-10-19] MED LIST changes: -BARIUM SUSPENSION 2.1% (VANILLA SILQ) 450 ML PO ONE; +HOLD METFORMIN - RECEIVED CONTRAST 20 ML VIAL IV SCH
--- NOTE | 2018-10-19 11:48 | Diagnostic Imaging Report ---
PROCEDURE: CT chest, abdomen, and pelvis with contrast. TECHNIQUE: Multiple contiguous axial images were obtained through the chest, abdomen, and pelvis after the administration of intravenous contrast. Auto Exposure Controls were utilized during the CT exam to meet ALARA standards for radiation dose reduction. INDICATION: Pancreatic carcinoma The previous CT abdomen/pelvis exam of 07/15/2018 noted postsurgical changes consistent with a prior Whipple procedure. There is also atrophy of the body and tail of the pancreas. Those findings are again evident on this study and have not changed significantly. There is no sign of a recurrent mass in this area. The biliary tree is not dilated. As noted previously the gallbladder is surgically absent. The liver is homogeneous and not enlarged. The spleen, adrenals, kidneys, aorta and inferior vena cava show no sign of an acute abnormality. The stomach is partially filled with fluid and consequently difficult to assess. There is no obvious gastric abnormality evident. The images through the pelvis show no sign of a mass or free fluid collection. There is diverticulosis of the sigmoid and descending colon but there is no sign of an acute diverticulitis. The appendix was not well-visualized but there are no indirect signs of acute appendicitis. There is noted on the prior exam the uterus is surgically absent. The urinary bladder is only partially filled with urine and consequently difficult to assess. The images through the thorax show that the heart size is within normal limits and stable when compare to the prior exam. Sparse coronary artery calcifications are evident. The aorta is not abnormally dilated. The pulmonary arteries are not fully opacified but there is no definite defect within the pulmonary arteries to indicate pulmonary embolus. There is no mediastinal or hilar adenopathy. The thyroid gland is unremarkable. The lungs are generally clear. There is no evidence for failure, pneumonia or a pleural effusion. There is no parenchymal lung mass identified. There is no obvious breast abnormality evident. According to our records the patient has not had a mammogram. If the patient has had a recent (within the last year) mammogram elsewhere, then no further imaging would be necessary. Otherwise mammography would be recommended for further study. The bone windows show no sign of a fracture or of a destructive lesion. There is fairly severe degenerative disc and bony disease at L3-4. IMPRESSION: 1. The post surgical changes involving the head of the pancreas seen previously are again evident and no different. There is no recurrent mass in this area to suggest neoplastic disease. 2. The overall appearance of the chest, abdomen and pelvis is otherwise stable. There is no sign of an acute abnormality. There is no evidence for metastatic disease. 3. There is no obvious breast mass. Recommendations as above. Dictated by: Dictated on workstation # [id number]
--- NOTE | 2018-10-19 20:30 | Diagnostic Imaging Report ---
EXAMINATION: Whole-body bone scan. INDICATION: Pancreatic CA. TECHNIQUE: This study was performed following administration of 26.6 mCi of 99m-technetium MDP. Anterior and posterior whole-body images were obtained. Spot films of the skull and thorax in the lateral projection were obtained as well. COMPARISON: There are no prior nuclear medicine bone scans available for comparison. FINDINGS: There is generalized distribution of the radiotracer throughout the osseous structures. There does appear to be slightly increased uptake in the lower lumbar spine at L3-4. The CT chest, abdomen, and pelvis exam performed in conjunction with this study did show severe degenerative disc and bony disease at the L3-4 level. Consequently, I suspect that this abnormal uptake is related to the degenerative changes and not to neoplasm. There is no other abnormal uptake to suggest neoplastic disease. There is mild uptake involving the shoulder, hip, and knee joints consistent with degenerative disease. Both kidneys do show excretion of the radiotracer. IMPRESSION: The abnormal uptake at the L3-4 level is felt to be more likely due to degenerative disease than to neoplasm. There is no evidence for metastatic disease or for an acute bony abnormality. Dictated by: Dictated on workstation # [id number]
== END ==
LOC: CARD 10:35
PROVIDERS: ATTEND Nurse Practitioner Adult Health
DX: Z01.89 Encounter for other specified special examinations (principal); C25.0 Malignant neoplasm of head of pancreas; M54.9 Dorsalgia, unspecified
CPT/HCPCS: 71260; 74177; 78306

== ENCOUNTER 2018-12-05 07:16 | Emergency (ER) | payer BC ==
[~2018-12-05] VITALS: Ht 175.3 cm; Wt 65.8 kg
--- OUTSIDE RECORDS SUMMARY | 2018-12-05 07:22 | XMS REPORT | Continuity of Care Document ---
Author Organization Unknown Address Unknown Phone Unavailable Allergies Active Description Code Type Severity Reaction Onset Reported/Identified Relationship to Patient Clinical Status Yes No Known Drug Allergies [id number] Drug Allergy Unknown N/A 03/27/2017 Medications There is no data. Problems Date Dx Coded Attending Type Code Diagnosis Diagnosed By 04/09/1348 LISY RUIZ Ot 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 04/09/1348 LISY RUIZ N Ot I10 ESSENTIAL (PRIMARY) HYPERTENSION 04/09/1348 LISY RUIZ N Ot M32.9 SYSTEMIC LUPUS ERYTHEMATOSUS, UNSPECIFIE 04/09/1348 LISY RUIZ N Ot Z51.0 ENCOUNTER FOR ANTINEOPLASTIC RADIATION T 04/09/1348 LISY RUIZ N Ot Z51.11 ENCOUNTER FOR ANTINEOPLASTIC CHEMOTHERAP 03/24/2017 LISY RUIZ N Ot 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 03/24/2017 LISY RUIZ N Ot I10 ESSENTIAL (PRIMARY) HYPERTENSION 03/24/2017 LISY RUIZ N Ot M32.9 SYSTEMIC LUPUS ERYTHEMATOSUS, UNSPECIFIE 03/27/2017 LISY RUIZ N Ot 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 03/27/2017 LISY RUIZ N Ot I10 ESSENTIAL (PRIMARY) HYPERTENSION 03/27/2017 LISY RUIZ N Ot M32.9 SYSTEMIC LUPUS ERYTHEMATOSUS, UNSPECIFIE 03/27/2017 LISY RUIZ N Ot 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 03/27/2017 LISY RUIZ N Ot I10 ESSENTIAL (PRIMARY) HYPERTENSION 03/27/2017 LISY RUIZ N Ot M32.9 SYSTEMIC LUPUS ERYTHEMATOSUS, UNSPECIFIE 03/30/2017 LISY RUIZ N Ot 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 03/30/2017 LISY RUIZ N Ot I10 ESSENTIAL (PRIMARY) HYPERTENSION 03/30/2017 LISY RUIZ N Ot M32.9 SYSTEMIC LUPUS ERYTHEMATOSUS, UNSPECIFIE 04/13/2017 SARALISY Ot 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 04/13/2017 SARALISY Ot I10 ESSENTIAL (PRIMARY) HYPERTENSION 04/13/2017 LISY RUIZ Ot M32.9 SYSTEMIC LUPUS ERYTHEMATOSUS, UNSPECIFIE 04/13/2017 SARALISY N Ot 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 04/13/2017 LISY RUIZ Ot I10 ESSENTIAL (PRIMARY) HYPERTENSION 04/13/2017 LISY RUIZ Ot M32.9 SYSTEMIC LUPUS ERYTHEMATOSUS, UNSPECIFIE 04/13/2017 SARALISY Ot C25.9 MALIGNANT NEOPLASM OF PANCREAS, UNSPECIF 04/13/2017 LISY RUIZ Ot Z98.890 OTHER SPECIFIED POSTPROCEDURAL STATES 05/21/2017 LISY RUIZ Ot 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 05/21/2017 LISY RUIZ N Ot I10 ESSENTIAL (PRIMARY) HYPERTENSION 05/21/2017 LISY RUIZ Ot M32.9 SYSTEMIC LUPUS ERYTHEMATOSUS, UNSPECIFIE 06/02/2017 LISY RUIZ Ot 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 06/02/2017 LIYS RUIZ N Ot I10 ESSENTIAL (PRIMARY) HYPERTENSION 06/02/2017 LISY RUIZ Ot M32.9 SYSTEMIC LUPUS ERYTHEMATOSUS, UNSPECIFIE 06/02/2017 LISY RUIZ Ot Z51.0 ENCOUNTER FOR ANTINEOPLASTIC RADIATION T 06/02/2017 LISY RUIZ Ot Z51.11 ENCOUNTER FOR ANTINEOPLASTIC CHEMOTHERAP 06/02/2017 LISY RUIZ Ot C25.9 MALIGNANT NEOPLASM OF PANCREAS, UNSPECIF 06/02/2017 LISY RUIZ N Ot Z98.890 OTHER SPECIFIED POSTPROCEDURAL STATES 06/02/2017 LISY RUIZ N Ot 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 06/02/2017 LSIY RUIZ N Ot I10 ESSENTIAL (PRIMARY) HYPERTENSION 06/02/2017 LISY RUIZ N Ot M32.9 SYSTEMIC LUPUS ERYTHEMATOSUS, UNSPECIFIE 06/03/2017 LISY RUIZ N Ot 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 06/03/2017 LISY RUIZ N Ot I10 ESSENTIAL (PRIMARY) HYPERTENSION 06/03/2017 SARALISY WILHELM N Ot M32.9 SYSTEMIC LUPUS ERYTHEMATOSUS, UNSPECIFIE 07/15/2017 SARALISY WILHELM N Ot C25.9 MALIGNANT NEOPLASM OF PANCREAS, UNSPECIF 07/15/2017 SARALISY N Ot K76.0 FATTY (CHANGE OF) LIVER, NOT ELSEWHERE C 07/15/2017 SARALISY WILHELM N Ot Z90.89 ACQUIRED ABSENCE OF OTHER ORGANS 07/15/2017 SARA, ADIELLIOT N Ot Z98.890 OTHER SPECIFIED POSTPROCEDURAL STATES 07/15/2017 SARALISY WILHELM N Ot C25.9 MALIGNANT NEOPLASM OF PANCREAS, UNSPECIF 07/15/2017 SARALISY WILHELM N Ot K76.0 FATTY (CHANGE OF) LIVER, NOT ELSEWHERE C 07/15/2017 SARA, ADIELLIOT N Ot Z90.89 ACQUIRED ABSENCE OF OTHER ORGANS 07/15/2017 SARA, ADIELLIOT N Ot Z98.890 OTHER SPECIFIED POSTPROCEDURAL STATES 07/16/2017 SARA, ADIELLIOT N Ot C25.9 MALIGNANT NEOPLASM OF PANCREAS, UNSPECIF 07/16/2017 SARA ADIELLIOT N Ot Z98.890 OTHER SPECIFIED POSTPROCEDURAL STATES 07/16/2017 SARA ADIELLIOT N Ot 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 07/16/2017 SARALISY N Ot I10 ESSENTIAL (PRIMARY) HYPERTENSION 07/16/2017 LISY RUIZ N Ot M32.9 SYSTEMIC LUPUS ERYTHEMATOSUS, UNSPECIFIE 07/16/2017 SARA, ADIELLIOT N Ot C25.9 MALIGNANT NEOPLASM OF PANCREAS, UNSPECIF 07/16/2017 SARA ADIELLIOT N Ot K76.0 FATTY (CHANGE OF) LIVER, NOT ELSEWHERE C 07/16/2017 SARA ADIELLIOT N Ot Z90.89 ACQUIRED ABSENCE OF OTHER ORGANS 07/16/2017 SARA ADIELLIOT N Ot Z98.890 OTHER SPECIFIED POSTPROCEDURAL STATES 07/20/2017 SARA ADIELLIOT N Ot 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 07/20/2017 SARA BOBAN N Ot I10 ESSENTIAL (PRIMARY) HYPERTENSION 07/20/2017 SARALISY N Ot M32.9 SYSTEMIC LUPUS ERYTHEMATOSUS, UNSPECIFIE 07/28/2017 SARA LISY N Ot 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 07/28/2017 LISY RUIZ N Ot I10 ESSENTIAL (PRIMARY) HYPERTENSION 07/28/2017 ADI RUIZELLIOT N Ot M32.9 SYSTEMIC LUPUS ERYTHEMATOSUS, UNSPECIFIE 08/11/2017 LISY RUIZ N Ot C25.9 MALIGNANT NEOPLASM OF PANCREAS, UNSPECIF 08/11/2017 LISY RUIZ Rnoa Ot K76.0 FATTY (CHANGE OF) LIVER, NOT ELSEWHERE C 08/11/2017 SARA LISY N Ot Z90.89 ACQUIRED ABSENCE OF OTHER ORGANS 08/11/2017 LISY RUIZ N Ot Z98.890 OTHER SPECIFIED POSTPROCEDURAL STATES 08/18/2017 SLY BOURGEOIS, MARY Ot 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 08/31/2017 SARALISY N Ot 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 08/31/2017 SARA LISY N Ot I10 ESSENTIAL (PRIMARY) HYPERTENSION 08/31/2017 SARALISY N Ot M32.9 SYSTEMIC LUPUS ERYTHEMATOSUS, UNSPECIFIE 09/01/2017 SARA LISY N Ot 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 09/01/2017 LISY RUIZ N Ot I10 ESSENTIAL (PRIMARY) HYPERTENSION 09/01/2017 SARALISY N Ot M32.9 SYSTEMIC LUPUS ERYTHEMATOSUS, UNSPECIFIE 09/04/2017 SARA, LISY N Ot 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 09/04/2017 SARA LISY N Ot I10 ESSENTIAL (PRIMARY) HYPERTENSION 09/04/2017 SARALISY N Ot M32.9 SYSTEMIC LUPUS ERYTHEMATOSUS, UNSPECIFIE 09/06/2017 SARA LISY N Ot 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 09/06/2017 SARA LISY N Ot I10 ESSENTIAL (PRIMARY) HYPERTENSION 09/06/2017 SARALISY N Ot M32.9 SYSTEMIC LUPUS ERYTHEMATOSUS, UNSPECIFIE 09/09/2017 SARALISY N Ot 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 09/09/2017 SARA BOBAN N Ot I10 ESSENTIAL (PRIMARY) HYPERTENSION 09/09/2017 SARALISY N Ot M32.9 SYSTEMIC LUPUS ERYTHEMATOSUS, UNSPECIFIE 09/18/2017 ANKIT SEALS L93.0 Discoid lupus erythematosus 10/13/2017 LISY RUIZ Rona Ot 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 10/13/2017 LISY RUIZ N Ot J90 PLEURAL EFFUSION, NOT ELSEWHERE CLASSIFI 10/13/2017 LISY RUIZ Ot K76.0 FATTY (CHANGE OF) LIVER, NOT ELSEWHERE C 12/06/2017 LISY RUIZ N Ot 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 12/06/2017 LISY RUIZ N Ot D61.818 OTHER PANCYTOPENIA 12/06/2017 LISY RUIZ N Ot I10 ESSENTIAL (PRIMARY) HYPERTENSION 12/06/2017 LISY RUIZ N Ot M32.9 SYSTEMIC LUPUS ERYTHEMATOSUS, UNSPECIFIE 12/06/2017 LISY RUIZ N Ot R94.5 ABNORMAL RESULTS OF LIVER FUNCTION STUDI 12/06/2017 LISY RUIZ N Ot Z79.899 OTHER ALF (CURRENT) DRUG THERAPY 12/07/2017 LISY RUIZ N Ot 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 12/07/2017 LISY RUIZ N Ot D61.818 OTHER PANCYTOPENIA 12/07/2017 LISY RUIZ N Ot I10 ESSENTIAL (PRIMARY) HYPERTENSION 12/07/2017 LISY RUIZ N Ot M32.9 SYSTEMIC LUPUS ERYTHEMATOSUS, UNSPECIFIE 12/07/2017 LISY RUIZ N Ot R94.5 ABNORMAL RESULTS OF LIVER FUNCTION STUDI 12/07/2017 LISY RUIZ N Ot Z79.899 OTHER DERMATOLOGY TECHNICIAN (CURRENT) DRUG THERAPY 01/14/2018 LISY RUIZ Rona Ot 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 01/14/2018 LISY RUIZ N Ot J90 PLEURAL EFFUSION, NOT ELSEWHERE CLASSIFI 01/14/2018 LISY RUIZ N Ot R18.8 OTHER ASCITES 01/14/2018 LISY RUIZ N Ot Z90.49 ACQUIRED ABSENCE OF OTHER SPECIFIED PART 01/14/2018 LISY RUIZ N Ot 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 01/14/2018 LISY RUIZ N Ot I10 ESSENTIAL (PRIMARY) HYPERTENSION 01/14/2018 LISY RUIZ N Ot M32.9 SYSTEMIC LUPUS ERYTHEMATOSUS, UNSPECIFIE 02/07/2018 LISY RUIZ N Ot 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 02/07/2018 LISY RUIZ N Ot I10 ESSENTIAL (PRIMARY) HYPERTENSION 02/07/2018 LISY RUIZ N Ot M32.9 SYSTEMIC LUPUS ERYTHEMATOSUS, UNSPECIFIE 02/07/2018 LISY RUIZ N Ot Z79.899 OTHER DERMATOLOGY TECHNICIAN (CURRENT) DRUG THERAPY 06/09/2018 LISY RUIZ N Ot 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 06/09/2018 LISY RUIZ N Ot I10 ESSENTIAL (PRIMARY) HYPERTENSION 06/09/2018 LISY RUIZ N Ot M32.9 SYSTEMIC LUPUS ERYTHEMATOSUS, UNSPECIFIE 06/09/2018 LISY RUIZ N Ot Z79.899 OTHER DERMATOLOGY TECHNICIAN (CURRENT) DRUG THERAPY 06/09/2018 LISY RUIZ N Ot Z90.49 ACQUIRED ABSENCE OF OTHER SPECIFIED PART 06/10/2018 LISY RUIZ N Ot 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 06/10/2018 LISY RUIZ N Ot I10 ESSENTIAL (PRIMARY) HYPERTENSION 06/10/2018 LISY RUIZ N Ot M32.9 SYSTEMIC LUPUS ERYTHEMATOSUS, UNSPECIFIE 06/10/2018 LISY RUIZ N Ot Z79.899 OTHER DERMATOLOGY TECHNICIAN (CURRENT) DRUG THERAPY 06/10/2018 LISY RUIZ N Ot Z90.49 ACQUIRED ABSENCE OF OTHER SPECIFIED PART 07/12/2018 LISY RUIZ N Ot C25.9 MALIGNANT NEOPLASM OF PANCREAS, UNSPECIF 07/12/2018 LISY RUIZ N Ot Z98.890 OTHER SPECIFIED POSTPROCEDURAL STATES 07/12/2018 LISY RUIZ N Ot C25.9 MALIGNANT NEOPLASM OF PANCREAS, UNSPECIF 07/12/2018 LISY RUIZ N Ot K76.0 FATTY (CHANGE OF) LIVER, NOT ELSEWHERE C 07/12/2018 SARA LISY N Ot Z90.89 ACQUIRED ABSENCE OF OTHER ORGANS 07/12/2018 SARAADIELLIOT N Ot Z98.890 OTHER SPECIFIED POSTPROCEDURAL STATES 07/12/2018 SLY BOURGEOIS, MARY Ot 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 07/12/2018 SARALISY N Ot 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 07/12/2018 SARALISY WILHELM N Ot J90 PLEURAL EFFUSION, NOT ELSEWHERE CLASSIFI 07/12/2018 LISY RUIZ Ot K76.0 FATTY (CHANGE OF) LIVER, NOT ELSEWHERE C 07/12/2018 LISY RUIZ N Ot 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 07/12/2018 LISY RUIZ N Ot J90 PLEURAL EFFUSION, NOT ELSEWHERE CLASSIFI 07/12/2018 LISY RUIZ N Ot R18.8 OTHER ASCITES 07/12/2018 LISY RUIZ N Ot Z90.49 ACQUIRED ABSENCE OF OTHER SPECIFIED PART 07/12/2018 LISY RUIZ N Ot 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 07/12/2018 LISY RUIZ N Ot I10 ESSENTIAL (PRIMARY) HYPERTENSION 07/12/2018 LISY RUIZ N Ot M32.9 SYSTEMIC LUPUS ERYTHEMATOSUS, UNSPECIFIE 07/12/2018 LISY RUIZ N Ot Z79.899 OTHER ALF (CURRENT) DRUG THERAPY 07/12/2018 LISY RUIZ N Ot Z90.49 ACQUIRED ABSENCE OF OTHER SPECIFIED PART 07/12/2018 LISY RUIZ N Ot C25.9 MALIGNANT NEOPLASM OF PANCREAS, UNSPECIF 07/12/2018 LISY RUIZ N Ot Z98.890 OTHER SPECIFIED POSTPROCEDURAL STATES 07/12/2018 LISY RUIZ N Ot C25.9 MALIGNANT NEOPLASM OF PANCREAS, UNSPECIF 07/12/2018 LISY RUIZ N Ot K76.0 FATTY (CHANGE OF) LIVER, NOT ELSEWHERE C 07/12/2018 LISY RUIZ N Ot Z90.89 ACQUIRED ABSENCE OF OTHER ORGANS 07/12/2018 LISY RUIZ N Ot Z98.890 OTHER SPECIFIED POSTPROCEDURAL STATES 07/12/2018 SLY BOURGEOIS, MARY Ot 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 07/12/2018 LISY RUIZ N Ot 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 07/12/2018 LISY RUIZ N Ot J90 PLEURAL EFFUSION, NOT ELSEWHERE CLASSIFI 07/12/2018 LISY RUIZ N Ot K76.0 FATTY (CHANGE OF) LIVER, NOT ELSEWHERE C 07/12/2018 LISY RUIZ N Ot 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 07/12/2018 LISY RUIZ N Ot J90 PLEURAL EFFUSION, NOT ELSEWHERE CLASSIFI 07/12/2018 LISY RUIZ N Ot R18.8 OTHER ASCITES 07/12/2018 SARALISY WILHELM N Ot Z90.49 ACQUIRED ABSENCE OF OTHER SPECIFIED PART 07/12/2018 LISY RUIZ N Ot 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 07/12/2018 LISY RUIZ N Ot I10 ESSENTIAL (PRIMARY) HYPERTENSION 07/12/2018 LISY RUIZ N Ot M32.9 SYSTEMIC LUPUS ERYTHEMATOSUS, UNSPECIFIE 07/12/2018 SARALISY WILHELM N Ot Z79.899 OTHER ALF (CURRENT) DRUG THERAPY 07/12/2018 LISY RUIZ N Ot Z90.49 ACQUIRED ABSENCE OF OTHER SPECIFIED PART 07/13/2018 LISY RUIZ N Ot 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 07/13/2018 LISY RUIZ N Ot I10 ESSENTIAL (PRIMARY) HYPERTENSION 07/13/2018 LISY RUIZ N Ot M32.9 SYSTEMIC LUPUS ERYTHEMATOSUS, UNSPECIFIE 07/13/2018 LISY RUIZ N Ot Z79.899 OTHER DERMATOLOGY TECHNICIAN (CURRENT) DRUG THERAPY 07/13/2018 LISY RUIZ N Ot Z90.49 ACQUIRED ABSENCE OF OTHER SPECIFIED PART 07/15/2018 LISY RUIZ N Ot C25.9 MALIGNANT NEOPLASM OF PANCREAS, UNSPECIF 07/15/2018 LISY RUIZ N Ot Z98.890 OTHER SPECIFIED POSTPROCEDURAL STATES 07/15/2018 LISY RUIZ N Ot C25.9 MALIGNANT NEOPLASM OF PANCREAS, UNSPECIF 07/15/2018 LISY RUIZ N Ot K76.0 FATTY (CHANGE OF) LIVER, NOT ELSEWHERE C 07/15/2018 LISY RUIZ N Ot Z90.89 ACQUIRED ABSENCE OF OTHER ORGANS 07/15/2018 SARALISY N Ot Z98.890 OTHER SPECIFIED POSTPROCEDURAL STATES 07/15/2018 SLY BOURGEOIS, MARY Ot 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 07/15/2018 SARA, LISY N Ot 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 07/15/2018 SARALISY WILHELM N Ot J90 PLEURAL EFFUSION, NOT ELSEWHERE CLASSIFI 07/15/2018 SARALISY WILHELM N Ot K76.0 FATTY (CHANGE OF) LIVER, NOT ELSEWHERE C 07/15/2018 LISY RUIZ N Ot 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 07/15/2018 LISY RUIZ N Ot J90 PLEURAL EFFUSION, NOT ELSEWHERE CLASSIFI 07/15/2018 LISY RUIZ N Ot R18.8 OTHER ASCITES 07/15/2018 LISY RUIZ N Ot Z90.49 ACQUIRED ABSENCE OF OTHER SPECIFIED PART 07/15/2018 LISY RUIZ N Ot 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 07/15/2018 LISY RUIZ N Ot D70.1 AGRANULOCYTOSIS SECONDARY TO CANCER CHEM 07/15/2018 SARALISY N Ot E03.9 HYPOTHYROIDISM, UNSPECIFIED 07/15/2018 SARA BOBAN N Ot I10 ESSENTIAL (PRIMARY) HYPERTENSION 07/15/2018 SARA ADIELLIOT N Ot M32.9 SYSTEMIC LUPUS ERYTHEMATOSUS, UNSPECIFIE 07/15/2018 SARA, ADIELLIOT N Ot Z79.899 OTHER ALF (CURRENT) DRUG THERAPY 07/15/2018 SARA ADIELLIOT N Ot Z90.49 ACQUIRED ABSENCE OF OTHER SPECIFIED PART 07/22/2018 LISY RUIZ N Ot 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 07/22/2018 LISY RUIZ N Ot Z90.49 ACQUIRED ABSENCE OF OTHER SPECIFIED PART 07/22/2018 LISY RUIZ N Ot Z98.890 OTHER SPECIFIED POSTPROCEDURAL STATES 08/16/2018 LISY RUIZ N Ot 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 08/16/2018 LISY RUIZ N Ot Z90.49 ACQUIRED ABSENCE OF OTHER SPECIFIED PART 08/16/2018 LISY RUIZ N Ot Z98.890 OTHER SPECIFIED POSTPROCEDURAL STATES 08/30/2018 LISY RUIZ N Ot 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 08/30/2018 LISY RUIZ N Ot D70.1 AGRANULOCYTOSIS SECONDARY TO CANCER CHEM 08/30/2018 SARA ADIELLIOT N Ot E03.9 HYPOTHYROIDISM, UNSPECIFIED 08/30/2018 SARA BOBAN N Ot I10 ESSENTIAL (PRIMARY) HYPERTENSION 08/30/2018 SARAADIAN N Ot M32.9 SYSTEMIC LUPUS ERYTHEMATOSUS, UNSPECIFIE 08/30/2018 SARAADIAN N Ot Z79.899 OTHER DERMATOLOGY TECHNICIAN (CURRENT) DRUG THERAPY 08/30/2018 SARALISY N Ot Z90.49 ACQUIRED ABSENCE OF OTHER SPECIFIED PART 09/17/2018 LATINIS, ANKIT [id number] Lupus 09/17/2018 LATINIS, ANKIT L93.0 Discoid lupus erythematosus 09/17/2018 LATINIS, ANKIT L93.0 Discoid lupus erythematosus 10/01/2018 LATINIS, ANKIT [id number] Lupus 10/01/2018 LATINIS, ANKIT L93.0 Discoid lupus erythematosus 10/01/2018 LATINIS, ANKIT L93.0 Discoid lupus erythematosus 10/01/2018 LATINIS, ANKIT R82.90 Unspecified abnormal findings in urine 10/10/2018 SARALISY N Ot 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 10/10/2018 SARALISY N Ot D70.1 AGRANULOCYTOSIS SECONDARY TO CANCER CHEM 10/10/2018 SARALISY WILHELM N Ot E03.9 HYPOTHYROIDISM, UNSPECIFIED 10/10/2018 SARALISY N Ot I10 ESSENTIAL (PRIMARY) HYPERTENSION 10/10/2018 SARALISY N Ot M32.9 SYSTEMIC LUPUS ERYTHEMATOSUS, UNSPECIFIE 10/10/2018 SARALISY N Ot Z79.899 OTHER ALF (CURRENT) DRUG THERAPY 10/10/2018 LISY RUIZ N Ot Z90.49 ACQUIRED ABSENCE OF OTHER SPECIFIED PART 10/12/2018 SARALISY N Ot 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 10/12/2018 LISY RUIZ N Ot D70.1 AGRANULOCYTOSIS SECONDARY TO CANCER CHEM 10/12/2018 SARALISY N Ot E03.9 HYPOTHYROIDISM, UNSPECIFIED 10/12/2018 SARA BOBAN N Ot I10 ESSENTIAL (PRIMARY) HYPERTENSION 10/12/2018 SARAADIAN N Ot M32.9 SYSTEMIC LUPUS ERYTHEMATOSUS, UNSPECIFIE 10/12/2018 SARALISY N Ot Z79.899 OTHER ALF (CURRENT) DRUG THERAPY 10/12/2018 SARALISY N Ot Z90.49 ACQUIRED ABSENCE OF OTHER SPECIFIED PART 10/13/2018 SARALISY N Ot 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 10/13/2018 SARA BOBELLIOT N Ot D70.1 AGRANULOCYTOSIS SECONDARY TO CANCER CHEM 10/13/2018 LISY RUIZ N Ot E03.9 HYPOTHYROIDISM, UNSPECIFIED 10/13/2018 LISY RUIZ N Ot I10 ESSENTIAL (PRIMARY) HYPERTENSION 10/13/2018 LISY RUIZ N Ot M32.9 SYSTEMIC LUPUS ERYTHEMATOSUS, UNSPECIFIE 10/13/2018 LISY RUIZ N Ot Z79.899 OTHER ALF (CURRENT) DRUG THERAPY 10/13/2018 LISY RUIZ N Ot Z90.49 ACQUIRED ABSENCE OF OTHER SPECIFIED PART 10/19/2018 LISY RUIZ N Ot C25.9 MALIGNANT NEOPLASM OF PANCREAS, UNSPECIF 10/19/2018 LISY RUIZ N Ot Z98.890 OTHER SPECIFIED POSTPROCEDURAL STATES 10/19/2018 LISY RUIZ N Ot C25.9 MALIGNANT NEOPLASM OF PANCREAS, UNSPECIF 10/19/2018 LISY RUIZ N Ot K76.0 FATTY (CHANGE OF) LIVER, NOT ELSEWHERE C 10/19/2018 LISY RUIZ N Ot Z90.89 ACQUIRED ABSENCE OF OTHER ORGANS 10/19/2018 LISY RUIZ N Ot Z98.890 OTHER SPECIFIED POSTPROCEDURAL STATES 10/19/2018 SLY BOURGEOIS, MARY Ot 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 10/19/2018 LISY RUIZ N Ot 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 10/19/2018 SARALISY WILHELM N Ot J90 PLEURAL EFFUSION, NOT ELSEWHERE CLASSIFI 10/19/2018 LISY RUIZ N Ot K76.0 FATTY (CHANGE OF) LIVER, NOT ELSEWHERE C 10/19/2018 LISY RUIZ N Ot 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 10/19/2018 SARALISY N Ot J90 PLEURAL EFFUSION, NOT ELSEWHERE CLASSIFI 10/19/2018 LISY RUIZ N Ot R18.8 OTHER ASCITES 10/19/2018 LISY RUIZ N Ot Z90.49 ACQUIRED ABSENCE OF OTHER SPECIFIED PART 10/19/2018 SARALISY WILHELM N Ot 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 10/19/2018 SARALISY WILHELM N Ot Z90.49 ACQUIRED ABSENCE OF OTHER SPECIFIED PART 10/19/2018 SARALISY WILHELM N Ot Z98.890 OTHER SPECIFIED POSTPROCEDURAL STATES 10/19/2018 LISY RUIZ Ot 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 10/19/2018 LISY RUIZ Ot D70.1 AGRANULOCYTOSIS SECONDARY TO CANCER CHEM 10/19/2018 LISY RUIZ Ot E03.9 HYPOTHYROIDISM, UNSPECIFIED 10/19/2018 LISY RUIZ Ot I10 ESSENTIAL (PRIMARY) HYPERTENSION 10/19/2018 LISY RUIZ Ot M32.9 SYSTEMIC LUPUS ERYTHEMATOSUS, UNSPECIFIE 10/19/2018 LISY RUIZ Ot Z79.899 OTHER ALF (CURRENT) DRUG THERAPY 10/19/2018 LISY RUIZ Ot Z90.49 ACQUIRED ABSENCE OF OTHER SPECIFIED PART 10/21/2018 MARIA ESTHER GAMEZ PREPPER Ot 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 10/21/2018 MARIA ESTHER GAMEZ PREPPER Ot M54.9 DORSALGIA, UNSPECIFIED 10/21/2018 GAMEZMARIA ESTHER S PREPPER Ot Z01.89 ENCOUNTER FOR OTHER SPECIFIED SPECIAL EX 10/25/2018 GAMEZMARIA ESTHER Colón PREPPER Ot 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 10/25/2018 GAMEZMARIA ESTHER Colón PREPPER Ot M54.9 DORSALGIA, UNSPECIFIED 10/25/2018 GAMEZMARIA ESTHER S PREPPER Ot Z01.89 ENCOUNTER FOR OTHER SPECIFIED SPECIAL EX 11/09/2018 DANITA CANELA R69 Illness, unspecified Procedures Code Description Performed By Performed On AVISE AVISE 09/17/2018 AVISE AVISE 09/17/2018 [id number] CBC AND DIFF (MANUAL DIFF IF NECESSARY) 09/17/2018 [id number] COMPREHENSIVE METABOLIC PANEL 09/17/2018 [id number] URINALYSIS (INCLUDES MICROSCOPIC REVIEW, IF INDICATED) 09/17/2018 [id number] CBC AND DIFF (MANUAL DIFF IF NECESSARY) 09/17/2018 [id number] COMPREHENSIVE METABOLIC PANEL 09/17/2018 [id number] URINALYSIS (INCLUDES MICROSCOPIC REVIEW, IF INDICATED) 09/17/2018 [id number] CBC AND DIFF (MANUAL DIFF IF NECESSARY) 10/01/2018 [id number] T4 FREE 10/01/2018 [id number] THYROID STIMULATING HORMONE 10/01/2018 [id number] URINALYSIS (INCLUDES MICROSCOPIC REVIEW, IF INDICATED) 10/01/2018 [id number] QUANTIFERON TB GOLD PLUS 10/01/2018 [id number] CBC AND DIFF (MANUAL DIFF IF NECESSARY) 10/01/2018 [id number] T4 FREE 10/01/2018 [id number] THYROID STIMULATING HORMONE 10/01/2018 [id number] QUANTIFERON TB GOLD PLUS 10/01/2018 [id number] CULTURE, URINE 10/01/2018 [id number] URINALYSIS (INCLUDES MICROSCOPIC REVIEW, IF INDICATED) 10/01/2018 [id number] URINALYSIS MICROSCOPIC ONLY 10/01/2018 [id number] IMMATURE PLATELET FRACTION 11/09/2018 Results Test Result Range COMPREHENSIVE METABOLIC PANEL - 09/17/18 15:17 Alanine Aminotransferase 24 0-34 Albumin 4.3 3.5-5.0 Alkaline Phosphatase 57 42-140 Aspartate Aminotransferase 39 15-46 Blood Urea Nitrogen 10 7-26 Chloride 105 96-112 Carbon Dioxide 31 20-32 Creatinine 0.8 0.4-1.1 Glucose 93 70-100 Potassium 4.2 3.5-5.3 Sodium 142 133-147 Calcium 9.3 8.4-10.5 Anion Gap 7 TX 5-17 Protein Total Serum 7.7 6.0-8.2 BILIRUBIN TOTAL 0.8 0.2-1.3 GFR FEMALE AA 93 60-200 GFR FEMALE NON-AA 77 60-200 CBC AND DIFF (MANUAL DIFF IF NECESSARY) - 09/17/18 15:17 WBC 1.92 4.00-11.00 Hematocrit 39 36-45 Hemoglobin 13.3 12.0-15.0 MCH 31 27-34 MCHC 35 32-36 MCV 90 80-99 MPV 11.1 9.4-12.3 Platelet Count 98 140-400 RBC 4.27 4.00-5.00 RDW 12.5 11.5-14.5 % NEUTROPHILS 67 45-78 %LYMPHOCYTES 17 15-47 %MONOCYTES 12 0-12 %EOSINOPHILS 4 0-7 %BASOPHILS 1 0-2 # GRANULOCYTES 1.28 1.70-6.80 # LYMPHOCYTES 0.33 1.00-3.30 # MONOCYTES 0.23 0.20-0.90 # EOSINOPHILS 0.07 0.00-0.40 # BASOPHILS 0.01 0.00-0.10 URINALYSIS - 09/17/18 16:23 APPEARANCE, URINE Yellow NRG GLUCOSE URINE Negative Negative BILIRUBIN URINE Negative Negative KETONES URINE Negative Negative SPECIFIC GRAVITY UA < TX 1.001-1.030 HEMOGLOBIN URINE Negative Negative PH URINE 5.5 TX 5.0-8.0 PROTEIN URINE QUAL Negative Negative UROBILINOGEN URINE Negative Negative NITRITE URINE Negative Negative LEUKOCYTE ESTERASE Negative Negative CBC AND DIFF (MANUAL DIFF IF NECESSARY) - 10/01/18 09:52 WBC 2.77 4.00-11.00 Hematocrit 38 36-45 Hemoglobin 13.3 12.0-15.0 MCH 32 27-34 MCHC 35 32-36 MCV 90 80-99 MPV 10.2 9.4-12.3 Platelet Count 118 140-400 RBC 4.19 4.00-5.00 RDW 12.4 11.5-14.5 % NEUTROPHILS 72 45-78 %LYMPHOCYTES 13 15-47 %MONOCYTES 13 0-12 %EOSINOPHILS 2 0-7 %BASOPHILS 0 0-2 # GRANULOCYTES 1.99 1.70-6.80 # LYMPHOCYTES 0.36 1.00-3.30 # MONOCYTES 0.36 0.20-0.90 # EOSINOPHILS 0.05 0.00-0.40 # BASOPHILS 0.01 0.00-0.10 T4 FREE - 10/01/18 09:52 T4 FREE 1.5 0.8-2.2 THYROID STIMULATING HORMONE - 10/01/18 09:52 Thyroid Stimulating Hormone 8.77 0.47-4.68 QUANTIFERON TB GOLD PLUS - 10/01/18 09:52 QFT INTERPRETATION Negative Negative URINALYSIS - 10/01/18 09:54 APPEARANCE, URINE Yellow NRG GLUCOSE URINE Negative Negative BILIRUBIN URINE Negative Negative KETONES URINE Negative Negative SPECIFIC GRAVITY UA 1.020 TX 1.001-1.030 HEMOGLOBIN URINE Small Negative PH URINE 5.5 TX 5.0-8.0 PROTEIN URINE QUAL Trace Negative UROBILINOGEN URINE Negative Negative NITRITE URINE Positive Negative LEUKOCYTE ESTERASE Positive Negative URINALYSIS MICROSCOPIC ONLY - 10/01/18 09:54 MICROSCOPIC RBC URINE 6 - 10 0-5 MICROSCOPIC WBC URINE >40 0-5 EPITHELIAL CELLS Small Absent HYALINE CAST Absent Absent BACTERIA Large Absent IMMATURE PLATELET FRACTION - 11/09/18 09:35 Immature Platelet Fraction 2.8 1.1-7.1 Encounters ACCT No. Visit Date/Time Discharge Status Pt. Type Provider Facility Loc./Unit Complaint [id number] 11/09/2018 09:32:00 11/09/2018 23:59:00 DIS Outpatient [facility] [id number] 10/01/2018 08:34:09 10/01/2018 23:59:59 CLS Outpatient [facility] [id number] 09/17/2018 14:11:54 09/17/2018 23:59:59 CLS Outpatient [facility] [id number] 11/25/2018 17:11:41 Document Registration [id number] 10/28/2018 20:18:29 Document Registration [id number] 10/20/2018 17:19:00 Document Registration [id number] 09/28/2018 22:16:54 Document Registration [id number] 11/26/2018 13:19:00 11/26/2018 23:59:59 CLS Outpatient SARALISY N [facility] ONC [id number] 10/19/2018 10:35:00 10/19/2018 23:59:59 CLS Outpatient MARIA ESTHER GAMEZ [facility] CARD PANCREATIC CA [id number] 09/21/2018 14:52:00 10/10/2018 00:01:00 DIS Outpatient SARA, BOBAN N [facility] ONC [id number] 07/15/2018 10:01:00 07/15/2018 23:59:59 CLS Outpatient SARA, BOBAN N [facility] RAD IMAGING STUDY TO RESTAGE NEOPLASM [id number] 04/28/2018 13:10:00 06/09/2018 00:01:00 DIS Outpatient SARA BOBAN N [facility] ONC [id number] 01/19/2018 10:44:00 02/07/2018 00:01:00 DIS Outpatient SARA BOBAN N [facility] ONC [id number] 01/13/2018 09:59:00 01/13/2018 23:59:59 CLS Outpatient SARA, BOBAN N [facility] RAD PANCREATIC CANCER [id number] 12/03/2017 10:10:00 12/06/2017 00:01:00 DIS Outpatient SARA, BOBAN N [facility] ONC [id number] 10/12/2017 10:14:00 10/12/2017 23:59:59 CLS Outpatient SARALISY WILHELM [facility] RAD C25.0 PANCREATIC CA [id number] 08/17/2017 13:49:00 08/31/2017 00:01:00 DIS Outpatient SARALISY WILHELM [facility] ONC [id number] 08/17/2017 14:23:00 08/17/2017 23:59:59 CLS Outpatient MARY HEART MD [facility] RAD C25.0 R11.2 R10.9 [id number] 07/15/2017 12:57:00 07/15/2017 23:59:59 CLS Outpatient LISY RUIZ [facility] RAD PANCREATIC CANCER [id number] 06/01/2017 13:41:00 06/02/2017 13:49:00 DIS Outpatient LISY RUIZ [facility] ONC [id number] 03/30/2017 11:45:00 03/30/2017 23:59:59 CLS Outpatient LISY RUIZ [facility] RAD C25.9 PANCREATIC CANCER [id number] 09/01/2016 13:34:00 ACT Unknown
[2018-12-05] MEDS ORDERED: morphine INJ 10 MG/ML 1ML (SYR OR VIAL) IVP STA (07:53)
[2018-12-05] MEDS ORDERED: NS IV 1000 ML 1,000 ML IV ONE (07:53)
[2018-12-05 08:00] LABS: BASOPHILS % (AUTO) 0 % (0-10); EOSINOPHILS % (AUTO) 1 % (0-10); HEMATOCRIT 39 % (35-52); HEMOGLOBIN 12.7 G/DL (11.5-16.0); LYMPHOCYTES # (AUTO) 0.5 X 10^3 (1.0-4.0); LYMPHOCYTES % (AUTO) 18 % (12-44); MEAN CORPUSCULAR HEMOGLOBIN 30 PG (25-34); MEAN CORPUSCULAR HGB CONC 33 G/DL (32-36); MEAN CORPUSCULAR VOLUME 92 FL (80-99); MEAN PLATELET VOLUME 10.1 FL (7.4-10.4); MONOCYTES # (AUTO) 0.4 X 10^3 (0.0-1.0); MONOCYTES % (AUTO) 16 % (0-12); NEUTROPHILS # (AUTO) 1.7 X 10^3 (1.8-7.8); NEUTROPHILS % (AUTO) 64 % (42-75); PLATELET COUNT 133 10^3/uL (130-400); RED CELL DISTRIBUTION WIDTH 14.5 % (10.0-14.5); WHITE BLOOD COUNT 2.6 10^3/uL (4.3-11.0)
[2018-12-05] MEDS ORDERED: ONDANSETRON 4 MG/2 ML (SDV) Z0FRAN IVP ONE (08:00)
[2018-12-05] MEDS ORDERED: methylPREDNISolone 125 MG (Solu-MEDROL) VIAL IVP ONE (08:00)
[2018-12-05 08:01] LABS: BILIRUBIN,URINE NEGATIVE (NEGATIVE); CLARITY,URINE CLEAR; COLOR,URINE YELLOW; GLUCOSE, URINE (UA) NEGATIVE (NEGATIVE); KETONES,URINE NEGATIVE (NEGATIVE); LEUKOCYTE ESTERASE ,URINE NEGATIVE (NEGATIVE); NITRITE,URINE NEGATIVE (NEGATIVE); PH,URINE 6.5 (5-9); PROTEIN,URINE NEGATIVE (NEGATIVE); UROBILINOGEN,URINE 1 MG/DL (NORMAL)
[2018-12-05 08:09] LABS: BACTERIA,URINE TRACE /HPF; WBC,URINE RARE /HPF
[2018-12-05 08:19] LABS: CARBON DIOXIDE 29 MMOL/L (21-32); CHLORIDE 101 MMOL/L (98-107); POTASSIUM 3.2 MMOL/L (3.6-5.0); SODIUM 143 MMOL/L (135-145)
[2018-12-05 08:20] LABS: ALANINE AMINOTRANSFERASE 32 U/L (0-55); ALBUMIN 4.1 GM/DL (3.2-4.5); ALKALINE PHOSPHATASE 53 U/L (40-136); BILIRUBIN,TOTAL 0.7 MG/DL (0.1-1.0); BUN/CREATININE RATIO 8; CALCIUM 9.6 MG/DL (8.5-10.1); CREATININE SERUM 0.74 MG/DL (0.60-1.30); GFR ESTIMATED > 60; GLUCOSE 101 MG/DL (70-105); MAGNESIUM 1.8 MG/DL (1.8-2.4)
--- NOTE | 2018-12-05 08:44 | NUR ---
nausea and pain improved
[2018-12-05] MEDS ORDERED: KCL 10 MEQ TAB (MICRO K) PO ONE (09:00)
[2018-12-05] MEDS ORDERED: KETOROLAC 30 MG/ML VIAL IVP ONE (09:00)
[2018-12-05] MEDS ORDERED: PROMETHAZINE INJ 25 MG/ML (PHENERGAN) AMP IVP ONE (09:00)
[2018-12-05] MEDS ORDERED: ONDA4TAB11 SL ×2 (09:06→09:29)
[2018-12-05] MEDS ORDERED: PROM25TA14 PO ×2 (09:06→09:29)
--- NOTE | 2018-12-05 09:06 | ED General ---
General Chief Complaint: Abdominal/GI Problems Stated Complaint: VOMITING / HEADACHE Nursing Triage Note: C/O vomiting since yesterday. Severe [place] that is resolving. Has pancreatic ca. no fever or diarrhea Nursing Sepsis Screen: No Definite Risk Source of Information: Patient Exam Limitations: No Limitations History of Present Illness Date Seen by Provider: Dec 05, 2018 Time Seen by Provider: 07:44 Initial Comments This 47-year-old woman with history of pancreatic cancer presents to the emergency room with headache since last night. Headache is actually improved some since then. She is also had nausea and vomiting since yesterday morning. Patient reports being admitted at [facility] one week ago for issues related to possible recurrence of pancreatic cancer. Patient has chronic abdominal pain related to her history of cancer and takes extended release morphine which she was not able to take this morning due to nausea. She reports her head was imaged at sometime between November 08 and November 16. Her head imaging was reportedly negative. Dr. Pineda is her oncologist and Raymundo Donnelly is her primary care provider. She is not currently receiving any active treatment for pancreatic cancer. Patient also has adrenal insufficiency and takes steroids daily. She has not been able to take her steroids today. Allergies and Home Medications Allergies Coded Allergies: No Known Drug Allergies (Unverified , 03/27/17) Home Medications Ondansetron 4 Mg Tab.rapdis, 4 MG SL Q4H PRN for NAUSEA/VOMITING Prescribed by: MARKELL CORNELIUS on 12/05/18928 Promethazine HCl 25 Mg Tablet, 12.5-25 MG PO Q8H PRN for NAUSEA/VOMITING-2ND LINE Prescribed by: MARKELL CORNELIUS on 12/05/18928 Patient Home Medication List Home Medication List Reviewed: Yes Review of Systems Review of Systems Constitutional: no symptoms reported EENTM: no symptoms reported Respiratory: no symptoms reported Cardiovascular: no symptoms reported Gastrointestinal: see HPI Genitourinary: no symptoms reported : No Musculoskeletal: no symptoms reported Skin: no symptoms reported Psychiatric/Neurological: See HPI Hematologic/Lymphatic: See HPI Immunological/Allergic: see HPI Past Nndqtdf-Nscglu-Drprhv Hx Patient Social History Alcohol Use: Denies Use Recreational Drug Use: No Smoking Status: Never a Smoker 2nd Hand Smoke Exposure: No Recent Foreign Travel: No Contact w/Someone Who Travel: No Recent Infectious Disease Expo: No Recent Hopitalizations: No Physical Abuse: No Sexual Abuse: No Mistreated: No Fear: No Seasonal Allergies Seasonal Allergies: No Past Medical History Surgeries: Yes Abdominal (Whipple procedure), Gallbladder, Hysterectomy, Pancreatic Respiratory: No Cardiac: No Neurological: Yes Headaches /Migraines Genitourinary: No Gastrointestinal: Yes (pancreatic ca) Endocrine: Yes Adrenal Disease, Lupus HEENT: No Cancer: Yes Pancreatic Did You Recieve Any Treatments: Yes What Type of Treatment Did You: Chemotherapy, Radiation Psychosocial: No Integumentary: No Physical Exam Vital Signs Vital Signs - First Documented 12/05/18 07:35 Temp 98.0 Pulse 72 Resp 16 B/P (MAP) 170/110 (130) Pulse Ox 100 Capillary Refill : Less Than 3 Seconds Height, Weight, BMI Height: 5'9.00" Weight: 145lbs. oz. 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-XII Norm as Tested Skin: Normal Color, Warm/Dry Progress/Results/Core Measures Suspected Sepsis Recent Fever Within 48 Hours: No Infection Criteria Present: None New/Unexplained Altered Menta: No Sepsis Screen: No Definite Risk SIRS Temperature:98.0 Pulse: 72 Respiratory Rate: 16 Laboratory Tests 12/05/18 07:48: White Blood Count 2.6L Blood Pressure 170 /110 Mean: 130 Laboratory Tests 12/05/18 07:48: Creatinine 0.74, Platelet Count 133, Total Bilirubin 0.7 Results/Orders Lab Results Laboratory Tests Test 12/05/18 07:48 Range/Units White Blood Count 2.6 L 4.3-11.0 10^3/uL Red Blood Count 4.23 L 4.35-5.85 10^6/uL Hemoglobin 12.7 11.5-16.0 G/DL Hematocrit 39 35-52 % Mean Corpuscular Volume 92 80-99 FL Mean Corpuscular Hemoglobin 30 25-34 PG Mean Corpuscular Hemoglobin Concent 33 32-36 G/DL Red Cell Distribution Width 14.5 10.0-14.5 % Platelet Count 133 130-400 10^3/uL Mean Platelet Volume 10.1 7.4-10.4 FL Neutrophils (%) (Auto) 64 42-75 % Lymphocytes (%) (Auto) 18 12-44 % Monocytes (%) (Auto) 16 H 0-12 % Eosinophils (%) (Auto) 1 0-10 % Basophils (%) (Auto) 0 0-10 % Neutrophils # (Auto) 1.7 L 1.8-7.8 X 10^3 Lymphocytes # (Auto) 0.5 L 1.0-4.0 X 10^3 Monocytes # (Auto) 0.4 0.0-1.0 X 10^3 Eosinophils # (Auto) 0.0 0.0-0.3 10^3/uL Basophils # (Auto) 0.0 0.0-0.1 10^3/uL Urine Color YELLOW Urine Clarity CLEAR Urine pH 6.5 5-9 Urine Specific [place] 1.015 L 1.016-1.022 Urine Protein NEGATIVE NEGATIVE Urine Glucose (UA) NEGATIVE NEGATIVE Urine Ketones NEGATIVE NEGATIVE Urine Nitrite NEGATIVE NEGATIVE Urine Bilirubin NEGATIVE NEGATIVE Urine Urobilinogen 1 NORMAL MG/DL Urine Leukocyte Esterase NEGATIVE NEGATIVE Urine RBC (Auto) NEGATIVE NEGATIVE Urine RBC NONE /HPF Urine WBC RARE /HPF Urine Squamous Epithelial Cells 10-25 H /HPF Urine Crystals NONE /LPF Urine Bacteria TRACE /HPF Urine Casts NONE /LPF Urine Mucus NEGATIVE /LPF Urine Culture Indicated NO Sodium Level 143 135-145 MMOL/L Potassium Level 3.2 L 3.6-5.0 MMOL/L Chloride Level 101 98-107 MMOL/L Carbon Dioxide Level 29 21-32 MMOL/L Anion Gap 13 5-14 MMOL/L Blood Urea Nitrogen 6 L 7-18 MG/DL Creatinine 0.74 0.60-1.30 MG/DL Estimat Glomerular Filtration Rate > 60 BUN/Creatinine Ratio 8 Glucose Level 101 70-105 MG/DL Calcium Level 9.6 8.5-10.1 MG/DL Corrected Calcium 9.5 8.5-10.1 MG/DL Magnesium Level 1.8 1.8-2.4 MG/DL Total Bilirubin 0.7 0.1-1.0 MG/DL Aspartate Amino Transf (AST/SGOT) 28 5-34 U/L Alanine Aminotransferase (ALT/SGPT) 32 0-55 U/L Alkaline Phosphatase 53 40-136 U/L Total Protein 7.0 6.4-8.2 GM/DL Albumin 4.1 3.2-4.5 GM/DL My Orders Orders - MARKELL BRIZUELA MD Ed Iv/Invasive Line Start (12/05/18 07:53) Ns Iv 1000 Ml (Sodium Chloride 0.9%) (12/05/18 07:53) Cbc With Automated Diff (12/05/18 07:53) Comprehensive Metabolic Panel (12/05/18 07:53) Magnesium (12/05/18 07:53) Ua Culture If Indicated (12/05/18 07:53) Ondansetron Injection (Zofran Injectio (12/05/18 08:00) Morphine Injection (Morphine Injection (12/05/18 07:53) Methylprednisolone Sod Succ (Solu-Medrol (12/05/18 08:00) Ketorolac Injection (Toradol Injection) (12/05/18 09:00) Promethazine Injection (Phenergan Injec (12/05/18 09:00) Potassium Chloride (Tablet) (Klor Con Ta (12/05/18 09:00) Medications Given in ED Current Medications Medications Dose Ordered Sig/Toy Route Start Time Stop Time Status Last Admin Dose Admin Ketorolac Tromethamine 15 mg ONCE ONCE IVP 12/05/18 09:00 12/05/18 09:01 DC 12/05/18 09:07 15 MG Methylprednisolone Sodium Succinate 125 mg ONCE ONCE IVP 12/05/18 08:00 12/05/18 08:01 DC 12/05/18 08:09 125 MG Ondansetron HCl 8 mg ONCE ONCE IVP 12/05/18 08:00 12/05/18 08:01 DC 12/05/18 08:09 8 MG Potassium Chloride 30 meq ONCE ONCE PO 12/05/18 09:00 12/05/18 09:01 DC 12/05/18 09:07 30 MEQ Promethazine HCl 12.5 mg ONCE ONCE IVP 12/05/18 09:00 12/05/18 09:01 DC 7/28/19 09:07 12.5 MG Sodium Chloride 1,000 ml @ 0 mls/hr Q0M ONCE IV 12/05/18 07:53 12/05/18 07:56 DC 12/05/18 08:09 1,000 MLS/HR Vital Signs/I&O 12/05/18 12/05/18 07:35 09:39 Temp 98.0 97.0 Pulse 72 71 Resp 16 16 B/P (MAP) 170/110 (130) 148/100 (116) Pulse Ox 100 99 Capillary Refill : Less Than 3 Seconds Blood Pressure Mean: 130 Progress Note : Progress Note Patient received Zofran and Phenergan for nausea. Morphine was given for pain. A stress dose of Solu-Medrol 125 mg IV was administered. Patient was given Toradol for refractory headache. Imaging of the head was deferred as patient states she recently had imaging done at [facility]. Potassium was replaced orally. Departure Impression Primary Impression: Acute headache Qualified Codes: R51 - Headache Additional Impressions: Nausea and vomiting Qualified Codes: R11.2 - Nausea with vomiting, unspecified History of pancreatic cancer Chronic leukopenia Acute hypokalemia Chronic abdominal pain Disposition: HOME, SELF-CARE Condition: Improved Departure-Patient Inst. Decision time for Depature: 09:02 Referrals: RAYMUNDO DONNELLY DO (PCP/Family) Primary Care Physician Patient Instructions: Hypokalemia Add. Discharge Instructions: Drink plenty of clear liquids. Gradually advance your diet with small quantities of bland food as tolerated. You may continue your usual pain medications as previously prescribed. For pain not controlled well by those medications, consider adding ibuprofen up to 600 mg every 6 hours as needed. Uses Zofran for your primary nausea medication. Add promethazine if necessary for nausea not controlled by Zofran. Please follow-up with the Cancer Center this week. Call tomorrow morning for an appointment. Return to the emergency room if you have worsening symptoms. All discharge instructions reviewed with patient and/or family. Voiced understanding. Scripts Promethazine HCl (Promethazine Tablet) 25 Mg Tablet 12.5-25 MG PO Q8H PRN for NAUSEA/VOMITING-2ND LINE, #10 TAB 0 Refills Prov: MARKELL BRIZUELA MD 12/05/18 Ondansetron (Ondansetron Odt) 4 Mg Tab.rapdis 4 MG SL Q4H PRN for NAUSEA/VOMITING, #10 TAB 1 Refill Prov: MARKELL BRIZUELA MD 12/05/18 Copy Copies To 1: LISY PINEDA JOSHUA T MD Dec 05, 2018 09:06
[2018-12-05 09:39] VITALS: BP 148/100
== END 2018-12-05 09:27 | disposition home or self-care (01) ==
LOC: EDUNIT# 07:16 → ER 07:18
DX: R11.2 Nausea with vomiting, unspecified (principal); R51 Headache; D72.819 Decreased white blood cell count, unspecified; E87.6 Hypokalemia; G89.3 Neoplasm related pain (acute) (chronic); R10.84 Generalized abdominal pain; M32.9 Systemic lupus erythematosus, unspecified; Z86.69 Personal history of other diseases of the nervous system and sense organs; Z85.07 Personal history of malignant neoplasm of pancreas; Z90.710 Acquired absence of both cervix and uterus
CPT/HCPCS: 36415; 80053; 81000; 83735; 85025

== ENCOUNTER 2018-12-22 09:53 | Outpatient (RCR) | payer BC ==
[2018-10-12 10:30] LABS: BASOPHILS % (AUTO) 0 % (0-10); EOSINOPHILS # (AUTO) 0.1 10^3/uL (0.0-0.3); EOSINOPHILS % (AUTO) 2 % (0-10); HEMATOCRIT 38 % (35-52); HEMOGLOBIN 12.9 G/DL (11.5-16.0); LYMPHOCYTES # (AUTO) 0.5 X 10^3 (1.0-4.0); LYMPHOCYTES % (AUTO) 14 % (12-44); MEAN CORPUSCULAR HEMOGLOBIN 31 PG (25-34); MEAN CORPUSCULAR HGB CONC 34 G/DL (32-36); MEAN CORPUSCULAR VOLUME 91 FL (80-99); MEAN PLATELET VOLUME 9.7 FL (7.4-10.4); MONOCYTES # (AUTO) 0.4 X 10^3 (0.0-1.0); MONOCYTES % (AUTO) 13 % (0-12); NEUTROPHILS # (AUTO) 2.4 X 10^3 (1.8-7.8); NEUTROPHILS % (AUTO) 72 % (42-75); PLATELET COUNT 125 10^3/uL (130-400); RED CELL DISTRIBUTION WIDTH 12.6 % (10.0-14.5); WHITE BLOOD COUNT 3.3 10^3/uL (4.3-11.0)
[2018-10-12 10:53] LABS: ALANINE AMINOTRANSFERASE 29 U/L (0-55); ALBUMIN 4.2 GM/DL (3.2-4.5); ALKALINE PHOSPHATASE 56 U/L (40-136); BILIRUBIN,TOTAL 0.9 MG/DL (0.1-1.0); BUN/CREATININE RATIO 13; CALCIUM 9.4 MG/DL (8.5-10.1); CARBON DIOXIDE 30 MMOL/L (21-32); CHLORIDE 103 MMOL/L (98-107); CREATININE SERUM 0.82 MG/DL (0.60-1.30); GFR ESTIMATED > 60; GLUCOSE 106 MG/DL (70-105); POTASSIUM 3.9 MMOL/L (3.6-5.0); SODIUM 140 MMOL/L (135-145); TOTAL PROTEIN 6.9 GM/DL (6.4-8.2)
[2018-11-26 13:35] LABS: BASOPHILS % (AUTO) 0 % (0-10); EOSINOPHILS % (AUTO) 0 % (0-10); HEMATOCRIT 37 % (35-52); HEMOGLOBIN 12.1 G/DL (11.5-16.0); LYMPHOCYTES # (AUTO) 0.4 X 10^3 (1.0-4.0); LYMPHOCYTES % (AUTO) 11 % (12-44); MEAN CORPUSCULAR HEMOGLOBIN 30 PG (25-34); MEAN CORPUSCULAR HGB CONC 32 G/DL (32-36); MEAN CORPUSCULAR VOLUME 93 FL (80-99); MEAN PLATELET VOLUME 9.9 FL (7.4-10.4); MONOCYTES # (AUTO) 0.3 X 10^3 (0.0-1.0); MONOCYTES % (AUTO) 10 % (0-12); NEUTROPHILS # (AUTO) 2.8 X 10^3 (1.8-7.8); NEUTROPHILS % (AUTO) 79 % (42-75); PLATELET COUNT 142 10^3/uL (130-400); RED CELL DISTRIBUTION WIDTH 14.4 % (10.0-14.5); WHITE BLOOD COUNT 3.5 10^3/uL (4.3-11.0)
[2018-11-26 13:52] LABS: ALANINE AMINOTRANSFERASE 40 U/L (0-55); ALBUMIN 4.1 GM/DL (3.2-4.5); ALKALINE PHOSPHATASE 50 U/L (40-136); BILIRUBIN,TOTAL 0.5 MG/DL (0.1-1.0); BUN/CREATININE RATIO 15; CALCIUM 9.3 MG/DL (8.5-10.1); CARBON DIOXIDE 31 MMOL/L (21-32); CHLORIDE 102 MMOL/L (98-107); CREATININE SERUM 0.75 MG/DL (0.60-1.30); GFR ESTIMATED > 60; GLUCOSE 154 MG/DL (70-105); SODIUM 139 MMOL/L (135-145); TOTAL PROTEIN 7.1 GM/DL (6.4-8.2)
[~2018-12-22 09:53] MED LIST changes: -CATHETER FLUSH 10 ML SYR IV PRN; -HOLD METFORMIN - RECEIVED CONTRAST 20 ML VIAL IV SCH; -IOHEXOL 350 MG/ML 100 ML (OMNIPAQUE 350) VIAL IV ONE; -NS 100 ML (IVPB) BAG IV ONE; +ONDA4TAB11 SL; +PROM25TA14 PO
[2018-12-22 10:10] LABS: BASOPHILS % (AUTO) 0 % (0-10); EOSINOPHILS % (AUTO) 1 % (0-10); HEMATOCRIT 39 % (35-52); HEMOGLOBIN 12.4 G/DL (11.5-16.0); LYMPHOCYTES # (AUTO) 0.4 X 10^3 (1.0-4.0); LYMPHOCYTES % (AUTO) 13 % (12-44); MEAN CORPUSCULAR HEMOGLOBIN 31 PG (25-34); MEAN CORPUSCULAR HGB CONC 32 G/DL (32-36); MEAN CORPUSCULAR VOLUME 95 FL (80-99); MEAN PLATELET VOLUME 10.4 FL (7.4-10.4); MONOCYTES # (AUTO) 0.4 X 10^3 (0.0-1.0); MONOCYTES % (AUTO) 13 % (0-12); NEUTROPHILS # (AUTO) 2.1 X 10^3 (1.8-7.8); NEUTROPHILS % (AUTO) 74 % (42-75); PLATELET COUNT 128 10^3/uL (130-400); RED CELL DISTRIBUTION WIDTH 14.4 % (10.0-14.5); WHITE BLOOD COUNT 2.9 10^3/uL (4.3-11.0)
[2018-12-22 10:27] LABS: ALANINE AMINOTRANSFERASE 22 U/L (0-55); ALBUMIN 3.9 GM/DL (3.2-4.5); ALKALINE PHOSPHATASE 62 U/L (40-136); BILIRUBIN,TOTAL 0.8 MG/DL (0.1-1.0); BUN/CREATININE RATIO 9; CALCIUM 8.8 MG/DL (8.5-10.1); CARBON DIOXIDE 29 MMOL/L (21-32); CHLORIDE 103 MMOL/L (98-107); CREATININE SERUM 0.74 MG/DL (0.60-1.30); GFR ESTIMATED > 60; GLUCOSE 102 MG/DL (70-105); SODIUM 141 MMOL/L (135-145); TOTAL PROTEIN 6.7 GM/DL (6.4-8.2)
[2018-12-22 11:42] LABS: BACTERIA,URINE TRACE /HPF; BILIRUBIN,URINE NEGATIVE (NEGATIVE); CLARITY,URINE CLEAR; COLOR,URINE YELLOW; GLUCOSE, URINE (UA) NEGATIVE (NEGATIVE); KETONES,URINE NEGATIVE (NEGATIVE); LEUKOCYTE ESTERASE ,URINE NEGATIVE (NEGATIVE); NITRITE,URINE NEGATIVE (NEGATIVE); PH,URINE 6.5 (5-9); PROTEIN,URINE NEGATIVE (NEGATIVE); UROBILINOGEN,URINE NORMAL (NORMAL)
== END 2019-01-10 | disposition home or self-care (01) ==
LOC: ONC 09:53
PROVIDERS: ATTEND Internal Medicine Hematology & Oncology
DX: C25.0 Malignant neoplasm of head of pancreas (principal); D70.1 Agranulocytosis secondary to cancer chemotherapy; E03.9 Hypothyroidism, unspecified; I10 Essential (primary) hypertension; M32.9 Systemic lupus erythematosus, unspecified; Z79.899 Other long term (current) drug therapy; Z90.49 Acquired absence of other specified parts of digestive tract
CPT/HCPCS: 36415; 80053; 81000; 82728; 83735; 84443; 85025; 86301; 99213

== ENCOUNTER → 2019-02-01 | Outpatient (CLI) | payer BC ==
[~2019-02-01] MED LIST changes: +BELI200A SQ; +DICY10CA12 PO; +HYDR200T46 PO; +LEVO75TA6 PO; +LIPA1CAP2 PO; +MORP-34 PO; +OMEP20CA13 PO; +OXYC10TA7 PO; +POTA10CA43 PO
--- NOTE | 2019-02-01 13:57 | Diagnostic Imaging Report ---
INDICATION: Pancreatic carcinoma, subsequent/restaging. TECHNIQUE: Serum blood glucose level at the time of injection was 56 mg/dL. Patient was administered 11.6 mCi F-18 FDG intravenously in the right antecubital location and PET imaging from the top of skull to mid thighs was performed. Noncontrast CT was also performed for attenuation correction and anatomic correlation. COMPARISON: No prior PET studies are available for comparison. Comparison is made with prior CT chest, abdomen and pelvis study from 10/19/2018. FINDINGS: There is symmetric activity throughout the brain. Imaging through the soft tissues of the neck does demonstrate a focus of hypermetabolism in the region of the left lobe of the thyroid with SUV max of approximately 4.3. There appears to be a thyroid nodule noted on a noncontrast CT. Dedicated thyroid ultrasound would be useful for further evaluation. Imaging through the chest is without abnormal hypermetabolism within the mediastinum or ion. Pulmonary parenchyma is unremarkable. Physiologic activity throughout the GI and tracts in the abdomen or pelvis is seen. There is an area of hypermetabolism identified in the central retroperitoneum. This is located medially anterior to the abdominal aorta and posterior to the pancreatic body, at the level of the SMA. SUV max approaches 12.6. Noncontrast CT does show some soft tissue prominence in this location. This is suspicious for tumor recurrence. No other suspicious foci within the abdomen or pelvis are seen. IMPRESSION: 1. Abnormal hypermetabolism in the central retroperitoneum at the level of the pancreas, as described. This is suspicious for tumor recurrence. Dedicated CT with contrast could be performed for further characterization. 2. Hypermetabolic nodule in left lobe of the thyroid. Dedicated thyroid ultrasound would be useful for further evaluation. Dictated by: Dictated on workstation # [id number]
== END ==
LOC: RAD 09:45
PROVIDERS: ATTEND Nurse Practitioner Adult Health
DX: Z01.89 Encounter for other specified special examinations (principal); C25.9 Malignant neoplasm of pancreas, unspecified; M54.9 Dorsalgia, unspecified; E41 Nutritional marasmus; R11.0 Nausea

== ENCOUNTER → 2019-02-03 | Outpatient (CLI) | payer BC ==
[~2019-02-03] MED LIST changes: +CATHETER FLUSH 10 ML SYR IV PRN; +HOLD METFORMIN - RECEIVED CONTRAST 20 ML VIAL IV SCH; +IOHEXOL 350 MG/ML 100 ML (OMNIPAQUE 350) VIAL IV ONE; +NS 100 ML (IVPB) BAG IV ONE
--- NOTE | 2019-02-03 13:54 | Diagnostic Imaging Report ---
PROCEDURE: CT abdomen with and without contrast. TECHNIQUE: Multiple contiguous axial CT images of the abdomen were obtained prior to and after intravenous administration of iodinated contrast. Auto Exposure Controls were utilized during the CT exam to meet ALARA standards for radiation dose reduction. INDICATION: Pancreatic carcinoma and right-sided abdominal pain. Patient is status post Whipple surgery. COMPARISON: Correlation is made with prior CT from 10/19/2018. Correlation is also made with recent PET/CT study from 02/01/2019. FINDINGS: The lung bases are clear. Liver does show a generalized low density consistent with hepatic steatosis. No discrete liver mass is identified. Gallbladder is surgically absent. No biliary ductal dilatation is seen. Postsurgical changes of the Whipple procedure are again noted. Pancreatic body and tail are atrophic. Abnormal soft tissue is identified anterior to the aorta and posterior to the pancreatic proximal body. Soft tissue commences just inferior to the celiac trunk and appears to encase the proximal aspect of the SMA. Soft tissue measures approximately 2.3 cm AP x 2.9 cm transverse x approximately 3.0 cm cephalocaudal. Soft tissue does abut the left lateral wall of the SMA but does not encase it. The spleen is unremarkable. No adrenal mass is detected. Kidneys are unremarkable. Aorta is nonaneurysmal. Visualized bowel loops are normal caliber. There is no ascites. IMPRESSION: 1. New abnormal soft tissue in the central retroperitoneum periaortic location at the level of the celiac trunk and SMA. Soft tissue does encase the proximal aspect of the SMA. This does correspond to the area of hypermetabolism noted on recent PET/CT and is most consistent with tumor recurrence. No other significant abnormality is detected. Dictated by: Dictated on workstation # [id number]
== END ==
LOC: RAD 12:12
PROVIDERS: ATTEND Internal Medicine Hematology & Oncology
DX: C25.0 Malignant neoplasm of head of pancreas (principal); K66.8 Other specified disorders of peritoneum; Z90.49 Acquired absence of other specified parts of digestive tract; Z98.890 Other specified postprocedural states
CPT/HCPCS: 74170

== ENCOUNTER 2019-02-04 05:31 | Outpatient (CLI) | payer BC ==
[~2019-02-04] VITALS: Ht 175.3 cm; Wt 60.8 kg
[~2019-02-04 05:31] MED LIST changes: -BELI200A SQ; -CATHETER FLUSH 10 ML SYR IV PRN; -DICY10CA12 PO; -HOLD METFORMIN - RECEIVED CONTRAST 20 ML VIAL IV SCH; -HYDR200T46 PO; -IOHEXOL 350 MG/ML 100 ML (OMNIPAQUE 350) VIAL IV ONE; -LEVO75TA6 PO; -LIPA1CAP2 PO; -MORP-34 PO; -NS 100 ML (IVPB) BAG IV ONE; -OMEP20CA13 PO; -OXYC10TA7 PO; -POTA10CA43 PO
[2019-02-04] MEDS ORDERED: LEVO75TA6 PO (12:29)
[2019-02-04] MEDS ORDERED: OMEP20CA13 PO (12:29)
[2019-02-04] MEDS ORDERED: HYDR200T46 PO (12:29)
[2019-02-04] MEDS ORDERED: DICY10CA12 PO (12:29)
[2019-02-04] MEDS ORDERED: POTA10CA43 PO (12:29)
[2019-02-04] MEDS ORDERED: OXYC10TA7 PO (12:29)
[2019-02-04] MEDS ORDERED: BELI200A SQ (12:29)
[2019-02-04] MEDS ORDERED: LIPA1CAP2 PO (12:29)
[2019-02-04] MEDS ORDERED: MORP-34 PO (12:29)
== END 2019-02-04 12:36 | disposition home or self-care (01) ==
LOC: PREOP 05:31
PROVIDERS: ATTEND Surgery
DX: Z01.818 Encounter for other preprocedural examination (principal)

== ENCOUNTER 2019-02-07 12:23 | Day surgery (SDC) | payer BC ==
[~2019-02-07] VITALS: Ht 175 cm; Wt 60.8 kg
[2019-02-07] VITALS (7 sets, daily range): BP systolic 114–134; BP diastolic 78–94
[~2019-02-07 12:23] MED LIST changes: +BELI200A SQ; +DICY10CA12 PO; +HYDR200T46 PO; +LEVO75TA6 PO; +LIPA1CAP2 PO; +MORP-34 PO; +OMEP20CA13 PO; +OXYC10TA7 PO; +POTA10CA43 PO
[2019-02-07] MEDS ORDERED: ceFAZolin 2 GM/50 ML NS 50 ML ONE (12:43)
[2019-02-07] MEDS ORDERED: BUP/EPI 0.25% 1:200,000 (MARCAINE) 10 ML VIAL IJ ONE (13:01)
[2019-02-07] MEDS ORDERED: 0.9% SODIUM CHLORIDE PF INJ 20 ML VIAL ONE (13:01)
[2019-02-07] MEDS ORDERED: HEParin (CENTRAL IV FLUSH) 500 UNIT/5 ML SYR ONE (13:01)
--- NOTE | 2019-02-07 13:04 | Consultation - Surgery ---
History of Present Illness History of Present Illness Patient Consulted On(james/time) 02/07/19 12:58 Time Seen by Provider: 12:44 History of Present Illness Surgery asked to see pt regarding cheryl-cath placement. HPI: pt is a 48 yo female who unfortunately was just told she has recurrent metastatic Pancreatic Cancer. She was first diagnosed in 2016 and had a Whipple performed. She was supposed to see me in clinic, but I had to cancel that day. Pt has never had a port before and does not know what it is. She states she had pain in right flank, that began in November and went to ER. That is when they found out it came back. She continues to have that same pain, but "it seems to be worse". Allergies and Home Medications Allergies Coded Allergies: No Known Drug Allergies (Unverified , 03/27/17) Home Medications Belimumab 200 Mg/1 Ml Auto.injct, 200 MG SQ WEEK, (Reported) Dicyclomine HCl 10 Mg Capsule, 10 MG PO QID, (Reported) Hydroxychloroquine Sulfate 200 Mg Tablet, 400 MG PO BID, (Reported) take 2 (200mg) tabs Levothyroxine Sodium 75 Mcg Tablet, 75 MCG PO DAILY, (Reported) Lipase/Protease/Amylase 1 Each Capsule.dr, 48,000 UNIT PO 6 times daily, (Reported) take 4 (12,000units) tabs Morphine Sulfate 30 Mg Tablet.er, 30 MG PO Q12H, (Reported) Omeprazole 20 Mg Capsule.dr, 20 MG PO BID, (Reported) Oxycodone HCl 10 Mg Tablet, 10 MG PO Q4H PRN for PAIN-MODERATE, (Reported) Potassium Chloride 10 Meq Capsule.er, 10 MEQ PO DAILY, (Reported) Patient Home Medication List Home Medication List Reviewed: Yes Past Kprndnm-Uwcups-Fopdzr Hx Patient Social History Alcohol Use: Occasionally Uses Smoking Status: Never a Smoker 2nd Hand Smoke Exposure: No Recent Foreign Travel: No Contact w/Someone Who Travel: No Recent Hopitalizations: No Seasonal Allergies Seasonal Allergies: No Surgeries History of Surgeries: Yes Surgeries: Abdominal, Gallbladder, Hysterectomy, Pancreatic Respiratory History of Respiratory Disorde: No Cardiovascular History of Cardiac Disorders: No Neurological History of Neurological Disord: Yes Neurological Disorders: Headaches /Migraines Reproductive System : No Genitourinary History of Genitourinary Disor: No Gastrointestinal History of Gastrointestinal Di: Yes (pancreatic ca) Endocrine History of Endocrine Disorders: Yes Endocrine Disorders: Adrenal Disease, Lupus HEENT History of HEENT Disorders: No Cancer History of Cancer: Yes Cancer: Pancreatic Psychosocial History of Psychiatric Problem: No Integumentary History of Skin or Integumenta: No Family Medical History Significant Family History: Hypertension (Father) Review of Systems-General Constitutional: No chills, No diaphoresis; malaise, other (states she is always cold) EENTM: No eye pain, No mouth pain, No mouth swelling, No epistaxis Respiratory: No cough, No dyspnea on exertion, No hemoptysis Cardiovascular: No chest pain, No edema, No palpitations Gastrointestinal: abdominal pain; No melena, No nausea, No vomiting Genitourinary: No dysuria, No frequency, No hematuria Musculoskeletal: joint pain, joint swelling, muscle stiffness, muscle cramps Skin: No change in hair/nails; lesions, rash Psychiatric/Neurological: Denies Anxiety; Depressed; Denies Pre-Existing Defi cit, Denies Seizure Other pt denies any hx of abnormal bleeding or bruising Physical Exam-General Problems Physical Exam Vital Signs Capillary Refill : General Appearance: WD/WN, mild distress Eyes: Bilateral Eye PERRL, Bilateral Eye EOMI HEENT: pharynx normal; No scleral icterus (R), No scleral icterus (L) Neck: non-tender, full range of motion Respiratory: chest non-tender, lungs clear, normal breath sounds, no respiratory distress, no accessory muscle use Cardiovascular: regular rate, rhythm, no edema, no murmur Gastrointestinal: normal bowel sounds, soft, no organomegaly, no pulsatile mass Back: no CVA tenderness, no vertebral tenderness Extremities: normal range of motion, non-tender, normal inspection, no pedal edema, no calf tenderness, normal capillary refill 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 Discussed the procedure with the pt; including risks and complications not limited to pain, bleeding, infection, scar, damage to major vessels and even pneumothorax. All questions answered to pt's satisfaction. This Consult was necessary to do in order to asses pt for ability to do the case and to explain it fully to her. PARTH COPELAND DO Feb 07, 2019 13:04
[2019-02-07] MEDS ORDERED: LACTATED RINGERS 1,000 ML IV PRN (13:11)
[2019-02-07] MEDS ORDERED: DEXAMETHASONE 10 MG/ML (DECADRON) 1 ML VIAL ONE (13:12)
[2019-02-07] MEDS ORDERED: PROPOFOL INJECTION 0 ML IV ONE (13:12)
[2019-02-07] MEDS ORDERED: fentaNYL INJECTION 100 MCG/2 ML AMP ONE ×2 (13:12→14:01)
[2019-02-07] MEDS ORDERED: MIDAZOLAM 2 MG/2 ML (VERSED) VIAL ONE (13:12)
[2019-02-07] MEDS ORDERED: proPOfol 200 MG/20 ML (DIPRIVAN) VIAL IV ONE (13:13)
[2019-02-07] MEDS ORDERED: ceFAZolin 2 GM/50 ML NS 50 ML IV ONE (13:15)
[2019-02-07] MEDS ORDERED: ONDANSETRON 4 MG/2 ML (SDV) Z0FRAN ONE (13:40)
--- NOTE | 2019-02-07 13:52 | Progress Note-Post Operative ---
Post-Operative Progess Note Surgeon (s)/Corporate Associate Attorney (s) Surgeon PARTH COPELAND DO Corporate Associate Attorney: GENOVEVA ShieldsII Pre-Operative Diagnosis pancreatic cancer, venous insufficiency Post-Operative Diagnosis same Procedure & Operative Findings Date of Procedure 02/07/19 Procedure Performed/Findings Pop-cath insertion Anesthesia Type IV sedation by [employer] Estimated Blood Loss Estimated blood loss (mL): scant Specimens/Packing Specimens Removed none PARTH COPELAND DO Feb 07, 2019 13:52
--- NOTE | 2019-02-07 13:53 | Discharge Inst-Surgical ---
Discharge Inst-Surgical Depart Medication/Instructions New, Converted or Re-Newed RX: Other (No Rx needed, pt has pain meds at home) Activity Activity as Tolerated: Yes Activity Instructions: Avoid Stress to Incision Driving Instructions: No Driving/Refer to Dr. Padron Discharge Diet: No Restrictions Diet After 24 Hours: Clear Liquid if Nauseous If Any Problems/Questions/Issu: Contact Your Physician, Go to Emergency Room Skin/Wound Care Infection Signs and Symptoms: Increased Redness, Foul Odor of Wound, Increased Drainage, Skin Itchy or Has a Rash, Increased Swelling, Temperature Above 101 F Bathing Instructions: Shower Stitches/Angel/Dermabond Dis: Dermabond Ice Pack: Ice On and Off Site PARTH COPELAND DO Feb 07, 2019 13:53
[2019-02-07] MEDS ORDERED: fentaNYL INJECTION 100 MCG/2 ML AMP IVP ONE (14:00)
--- NOTE | 2019-02-07 14:37 | Diagnostic Imaging Report ---
Fluoroscopy. Indication: Groshong catheter placement. Fluoroscopic assistance was provided for Dr. Frank during his Groshong catheter placement procedure. 4.4 seconds of fluoroscopy time was utilized. A single spot film of the thorax shows that there is a central venous catheter in place on the right. The tip of the catheter overlies the midportion of the superior vena cava. Impression: Fluoroscopic assistance was provided for Dr. Frank. Dictated by: Dictated on workstation # [id number]
--- NOTE | 2019-02-07 23:30 | OPERATIVE REPORT ---
DATE OF SERVICE: 02/07/2019 PREOPERATIVE DIAGNOSES: 1. Pancreatic cancer. 2. Venous insufficiency. POSTOPERATIVE DIAGNOSES: 1. Pancreatic cancer. 2. Venous insufficiency. PROCEDURE: Insertion of Port-A-Cath, right anterior chest wall, right subclavian vein. SURGEON: Marty Frank DO. STUDENT COUNSELOR: LEI Shields. SPECIMENS: None. BLOOD LOSS: Scant. FLUIDS: Per anesthesia. POSTOPERATIVE CONDITION: Stable. INDICATION FOR PROCEDURE: The patient is a 48-year-old female who unfortunately has recurrent metastatic pancreatic cancer, needs a Port-A-Cath placed for long-term chemotherapy and she has had trouble last time with veins, which needed a port for venous insufficiency. FINDINGS: The patient had a Port-A-Cath placed right anterior chest wall, right subclavian vein. PROCEDURE NOTE: After informed consent was obtained, the patient was brought to the operating room, placed on the operating table in supine position. She was sterilely prepped and draped in normal fashion. Local lidocaine was used to infiltrate the skin at the right clavicle as well as the right anterior chest wall. The patient placed slightly Trendelenburg, then with using an 18-gauge fine needle with negative inspiration advanced under the right clavicle, good flash of blood on the first pass, removed the syringe, placed a guidewire using Seldinger technique, it went in easily, checked with fluoroscopy, it was in good position, then made a stab incision along the guidewire with #11 blade, and then using 11-blade, made a small incision in the right anterior chest wall and the spot we had previously infiltrated with local carried down through the skin into the subcutaneous tissue, deepened down to subcutaneous tissue with Bovie electrocautery down to the pectoralis major fascia and created a pocket bluntly and then tunneled from the stab incision into the pocket, the tunneled decatheter, and then over the guidewire, placed a dilator using Seldinger technique, it went in easily, checked with fluoroscopy, it was in good position. I removed the inner portion of the dilator as well as the guidewire and then placed the catheter down the dilator sheath using the Seldinger technique, it went in easily checked with fluoroscopy, it was in good position. I removed the dilator sheath, attached the catheter to the port and then accessed the port with a Fisher needle, got a good flash of blood and then flushed with saline, then got aspirated again, good flash of blood and then flushed with 2 mL of heparin. The port was sutured in place suturing with a 3-0 Prolene to hold it down to the pectoralis major fascia and then closed the subcutaneous tissue with 3-0 Vicryl, 2 interrupted sutures and closed the skin with 4-0 undyed Monocryl simple interrupted subcuticular stitches. Area was cleaned and dried. Dermabond placed as well as dressing. The patient tolerated the procedure. Sponge, instrument and needle count correct at the end of the case. Job ID: [id number] DocumentID: [id number] Dictated Date: 02/07/2019 13:50:16 Power Brake Rebuilder Date: 02/07/2019 23:29:48 Dictated By: DO BENSON BRAY
== END 2019-02-07 15:10 | disposition home or self-care (01) ==
LOC: SDC 12:23
PROVIDERS: ATTEND Surgery
DX: C25.9 Malignant neoplasm of pancreas, unspecified (principal); I87.2 Venous insufficiency (chronic) (peripheral); E27.40 Unspecified adrenocortical insufficiency; Z79.899 Other long term (current) drug therapy; Z90.49 Acquired absence of other specified parts of digestive tract; Z90.710 Acquired absence of both cervix and uterus
CPT/HCPCS: 87081

== ENCOUNTER 2019-04-27 11:27 | Outpatient (RCR) | payer BC ==
[2019-02-02 11:16] LABS: BASOPHILS % (AUTO) 0 % (0-10); EOSINOPHILS % (AUTO) 1 % (0-10); HEMATOCRIT 41 % (35-52); HEMOGLOBIN 13.7 G/DL (11.5-16.0); LYMPHOCYTES # (AUTO) 0.6 X 10^3 (1.0-4.0); LYMPHOCYTES % (AUTO) 10 % (12-44); MEAN CORPUSCULAR HEMOGLOBIN 30 PG (25-34); MEAN CORPUSCULAR HGB CONC 34 G/DL (32-36); MEAN CORPUSCULAR VOLUME 90 FL (80-99); MEAN PLATELET VOLUME 10.5 FL (7.4-10.4); MONOCYTES # (AUTO) 0.5 X 10^3 (0.0-1.0); MONOCYTES % (AUTO) 9 % (0-12); NEUTROPHILS # (AUTO) 4.7 X 10^3 (1.8-7.8); NEUTROPHILS % (AUTO) 81 % (42-75); PLATELET COUNT 158 10^3/uL (130-400); RED CELL DISTRIBUTION WIDTH 12.2 % (10.0-14.5); WHITE BLOOD COUNT 5.8 10^3/uL (4.3-11.0)
[2019-02-02 11:33] LABS: ALANINE AMINOTRANSFERASE 28 U/L (0-55); ALBUMIN 4.2 GM/DL (3.2-4.5); ALKALINE PHOSPHATASE 60 U/L (40-136); BILIRUBIN,TOTAL 0.9 MG/DL (0.1-1.0); BUN/CREATININE RATIO 17; CARBON DIOXIDE 27 MMOL/L (21-32); CHLORIDE 102 MMOL/L (98-107); CREATININE SERUM 0.86 MG/DL (0.60-1.30); GFR ESTIMATED > 60; GLUCOSE 115 MG/DL (70-105); POTASSIUM 3.9 MMOL/L (3.6-5.0); SODIUM 139 MMOL/L (135-145)
[2019-02-09 11:27] LABS: BASOPHILS % (AUTO) 0 % (0-10); EOSINOPHILS % (AUTO) 1 % (0-10); HEMATOCRIT 39 % (35-52); HEMOGLOBIN 13.1 G/DL (11.5-16.0); LYMPHOCYTES # (AUTO) 0.5 X 10^3 (1.0-4.0); LYMPHOCYTES % (AUTO) 8 % (12-44); MEAN CORPUSCULAR HEMOGLOBIN 30 PG (25-34); MEAN CORPUSCULAR HGB CONC 33 G/DL (32-36); MEAN CORPUSCULAR VOLUME 90 FL (80-99); MEAN PLATELET VOLUME 10.3 FL (7.4-10.4); MONOCYTES # (AUTO) 0.5 X 10^3 (0.0-1.0); MONOCYTES % (AUTO) 9 % (0-12); NEUTROPHILS # (AUTO) 4.7 X 10^3 (1.8-7.8); NEUTROPHILS % (AUTO) 82 % (42-75); PLATELET COUNT 132 10^3/uL (130-400); RED CELL DISTRIBUTION WIDTH 12.3 % (10.0-14.5); WHITE BLOOD COUNT 5.7 10^3/uL (4.3-11.0)
[2019-02-09 11:46] LABS: ALANINE AMINOTRANSFERASE 32 U/L (0-55); ALBUMIN 3.8 GM/DL (3.2-4.5); ALKALINE PHOSPHATASE 56 U/L (40-136); BILIRUBIN,TOTAL 0.7 MG/DL (0.1-1.0); BUN/CREATININE RATIO 15; CALCIUM 8.9 MG/DL (8.5-10.1); CARBON DIOXIDE 25 MMOL/L (21-32); CHLORIDE 104 MMOL/L (98-107); CREATININE SERUM 0.71 MG/DL (0.60-1.30); GFR ESTIMATED > 60; GLUCOSE 114 MG/DL (70-105); MAGNESIUM 1.7 MG/DL (1.6-2.4); POTASSIUM 3.9 MMOL/L (3.6-5.0); SODIUM 139 MMOL/L (135-145); TOTAL PROTEIN 6.6 GM/DL (6.4-8.2)
[2019-02-17 10:37] LABS: BASOPHILS % (AUTO) 0 % (0-10); EOSINOPHILS % (AUTO) 1 % (0-10); HEMATOCRIT 37 % (35-52); HEMOGLOBIN 12.8 G/DL (11.5-16.0); LYMPHOCYTES # (AUTO) 0.2 X 10^3 (1.0-4.0); LYMPHOCYTES % (AUTO) 13 % (12-44); MEAN CORPUSCULAR HEMOGLOBIN 30 PG (25-34); MEAN CORPUSCULAR HGB CONC 34 G/DL (32-36); MEAN CORPUSCULAR VOLUME 87 FL (80-99); MEAN PLATELET VOLUME 9.9 FL (7.4-10.4); MONOCYTES # (AUTO) 0.2 X 10^3 (0.0-1.0); MONOCYTES % (AUTO) 9 % (0-12); NEUTROPHILS # (AUTO) 1.3 X 10^3 (1.8-7.8); NEUTROPHILS % (AUTO) 78 % (42-75); PLATELET COUNT 95 10^3/uL (130-400); RED CELL DISTRIBUTION WIDTH 11.6 % (10.0-14.5); WHITE BLOOD COUNT 1.7 10^3/uL (4.3-11.0)
[2019-02-17 10:53] LABS: ALANINE AMINOTRANSFERASE 68 U/L (0-55); ALBUMIN 3.9 GM/DL (3.2-4.5); ALKALINE PHOSPHATASE 48 U/L (40-136); BILIRUBIN,TOTAL 0.7 MG/DL (0.1-1.0); BUN/CREATININE RATIO 13; CARBON DIOXIDE 26 MMOL/L (21-32); CHLORIDE 100 MMOL/L (98-107); CREATININE SERUM 0.68 MG/DL (0.60-1.30); GFR ESTIMATED > 60; GLUCOSE 116 MG/DL (70-105); POTASSIUM 4.2 MMOL/L (3.6-5.0); SODIUM 134 MMOL/L (135-145); TOTAL PROTEIN 6.7 GM/DL (6.4-8.2)
[2019-02-24 10:39] LABS: BASOPHILS % (AUTO) 0 % (0-10); EOSINOPHILS % (AUTO) 0 % (0-10); HEMATOCRIT 33 % (35-52); HEMOGLOBIN 11.2 G/DL (11.5-16.0); LYMPHOCYTES # (AUTO) 0.1 X 10^3 (1.0-4.0); LYMPHOCYTES % (AUTO) 17 % (12-44); MEAN CORPUSCULAR HEMOGLOBIN 29 PG (25-34); MEAN CORPUSCULAR HGB CONC 34 G/DL (32-36); MEAN CORPUSCULAR VOLUME 86 FL (80-99); MEAN PLATELET VOLUME 9.9 FL (7.4-10.4); MONOCYTES # (AUTO) 0.1 X 10^3 (0.0-1.0); MONOCYTES % (AUTO) 10 % (0-12); NEUTROPHILS # (AUTO) 0.4 X 10^3 (1.8-7.8); NEUTROPHILS % (AUTO) 73 % (42-75); PLATELET COUNT 40 10^3/uL (130-400); RED CELL DISTRIBUTION WIDTH 11.3 % (10.0-14.5)
[2019-02-24 10:42] LABS: WHITE BLOOD COUNT 0.6 10^3/uL (4.3-11.0)
[2019-02-24 11:40] LABS: ALANINE AMINOTRANSFERASE 67 U/L (0-55); ALBUMIN 3.6 GM/DL (3.2-4.5); ALKALINE PHOSPHATASE 56 U/L (40-136); BILIRUBIN,TOTAL 0.7 MG/DL (0.1-1.0); BUN/CREATININE RATIO 13; CALCIUM 8.3 MG/DL (8.5-10.1); CARBON DIOXIDE 24 MMOL/L (21-32); CHLORIDE 102 MMOL/L (98-107); CREATININE SERUM 0.62 MG/DL (0.60-1.30); GFR ESTIMATED > 60; GLUCOSE 149 MG/DL (70-105); POTASSIUM 3.6 MMOL/L (3.6-5.0); SODIUM 135 MMOL/L (135-145); TOTAL PROTEIN 6.2 GM/DL (6.4-8.2)
[2019-03-03 11:30] LABS: BASOPHILS % (AUTO) 1 % (0-10); EOSINOPHILS # (AUTO) 0.1 10^3/uL (0.0-0.3); EOSINOPHILS % (AUTO) 3 % (0-10); HEMATOCRIT 34 % (35-52); HEMOGLOBIN 11.3 G/DL (11.5-16.0); LYMPHOCYTES # (AUTO) 0.2 X 10^3 (1.0-4.0); LYMPHOCYTES % (AUTO) 15 % (12-44); MEAN CORPUSCULAR HEMOGLOBIN 29 PG (25-34); MEAN CORPUSCULAR HGB CONC 33 G/DL (32-36); MEAN CORPUSCULAR VOLUME 89 FL (80-99); MEAN PLATELET VOLUME 9.5 FL (7.4-10.4); MONOCYTES # (AUTO) 0.4 X 10^3 (0.0-1.0); MONOCYTES % (AUTO) 26 % (0-12); NEUTROPHILS # (AUTO) 0.9 X 10^3 (1.8-7.8); NEUTROPHILS % (AUTO) 56 % (42-75); PLATELET COUNT 257 10^3/uL (130-400); RED CELL DISTRIBUTION WIDTH 13.2 % (10.0-14.5); WHITE BLOOD COUNT 1.6 10^3/uL (4.3-11.0)
[2019-03-03 11:49] LABS: ALANINE AMINOTRANSFERASE 102 U/L (0-55); ALBUMIN 3.3 GM/DL (3.2-4.5); ALKALINE PHOSPHATASE 61 U/L (40-136); BILIRUBIN,TOTAL 0.5 MG/DL (0.1-1.0); BUN/CREATININE RATIO 6; CALCIUM 8.1 MG/DL (8.5-10.1); CARBON DIOXIDE 26 MMOL/L (21-32); CHLORIDE 102 MMOL/L (98-107); CREATININE SERUM 0.65 MG/DL (0.60-1.30); GFR ESTIMATED > 60; GLUCOSE 117 MG/DL (70-105); POTASSIUM 3.2 MMOL/L (3.6-5.0); SODIUM 140 MMOL/L (135-145); TOTAL PROTEIN 5.6 GM/DL (6.4-8.2)
[2019-03-10 10:40] LABS: BASOPHILS % (AUTO) 1 % (0-10); EOSINOPHILS % (AUTO) 1 % (0-10); HEMATOCRIT 36 % (35-52); HEMOGLOBIN 11.6 G/DL (11.5-16.0); LYMPHOCYTES # (AUTO) 0.7 X 10^3 (1.0-4.0); LYMPHOCYTES % (AUTO) 12 % (12-44); MEAN CORPUSCULAR HEMOGLOBIN 29 PG (25-34); MEAN CORPUSCULAR HGB CONC 32 G/DL (32-36); MEAN CORPUSCULAR VOLUME 92 FL (80-99); MEAN PLATELET VOLUME 9.8 FL (7.4-10.4); MONOCYTES % (AUTO) 17 % (0-12); NEUTROPHILS # (AUTO) 4.4 X 10^3 (1.8-7.8); NEUTROPHILS % (AUTO) 71 % (42-75); PLATELET COUNT 250 10^3/uL (130-400); RED CELL DISTRIBUTION WIDTH 14.4 % (10.0-14.5); WHITE BLOOD COUNT 6.3 10^3/uL (4.3-11.0)
[2019-03-10 10:53] LABS: BUN/CREATININE RATIO 11; CALCIUM 8.1 MG/DL (8.5-10.1); CARBON DIOXIDE 25 MMOL/L (21-32); CHLORIDE 103 MMOL/L (98-107); CREATININE SERUM 0.61 MG/DL (0.60-1.30); GFR ESTIMATED > 60; GLUCOSE 123 MG/DL (70-105); POTASSIUM 3.7 MMOL/L (3.6-5.0); SODIUM 138 MMOL/L (135-145)
[2019-03-17 09:24] LABS: BASOPHILS % (AUTO) 0 % (0-10); EOSINOPHILS % (AUTO) 0 % (0-10); HEMATOCRIT 33 % (35-52); HEMOGLOBIN 10.9 G/DL (11.5-16.0); LYMPHOCYTES # (AUTO) 0.2 X 10^3 (1.0-4.0); LYMPHOCYTES % (AUTO) 13 % (12-44); MEAN CORPUSCULAR HEMOGLOBIN 30 PG (25-34); MEAN CORPUSCULAR HGB CONC 33 G/DL (32-36); MEAN CORPUSCULAR VOLUME 91 FL (80-99); MEAN PLATELET VOLUME 10.7 FL (7.4-10.4); MONOCYTES # (AUTO) 0.4 X 10^3 (0.0-1.0); MONOCYTES % (AUTO) 19 % (0-12); NEUTROPHILS # (AUTO) 1.2 X 10^3 (1.8-7.8); NEUTROPHILS % (AUTO) 68 % (42-75); PLATELET COUNT 102 10^3/uL (130-400); RED CELL DISTRIBUTION WIDTH 13.9 % (10.0-14.5); WHITE BLOOD COUNT 1.8 10^3/uL (4.3-11.0)
[2019-03-17 09:37] LABS: BUN/CREATININE RATIO 17; CALCIUM 8.4 MG/DL (8.5-10.1); CARBON DIOXIDE 25 MMOL/L (21-32); CHLORIDE 101 MMOL/L (98-107); CREATININE SERUM 0.63 MG/DL (0.60-1.30); GFR ESTIMATED > 60; GLUCOSE 158 MG/DL (70-105); POTASSIUM 3.6 MMOL/L (3.6-5.0); SODIUM 136 MMOL/L (135-145)
[2019-03-31 11:00] LABS: BASOPHILS % (AUTO) 0 % (0-10); EOSINOPHILS % (AUTO) 2 % (0-10); HEMATOCRIT 33 % (35-52); HEMOGLOBIN 10.8 G/DL (11.5-16.0); LYMPHOCYTES # (AUTO) 0.2 X 10^3 (1.0-4.0); LYMPHOCYTES % (AUTO) 11 % (12-44); MEAN CORPUSCULAR HEMOGLOBIN 30 PG (25-34); MEAN CORPUSCULAR HGB CONC 32 G/DL (32-36); MEAN CORPUSCULAR VOLUME 94 FL (80-99); MEAN PLATELET VOLUME 9.7 FL (7.4-10.4); MONOCYTES # (AUTO) 0.3 X 10^3 (0.0-1.0); MONOCYTES % (AUTO) 24 % (0-12); NEUTROPHILS # (AUTO) 0.9 X 10^3 (1.8-7.8); NEUTROPHILS % (AUTO) 63 % (42-75); PLATELET COUNT 202 10^3/uL (130-400); RED CELL DISTRIBUTION WIDTH 16.7 % (10.0-14.5)
[2019-03-31 11:05] LABS: WHITE BLOOD COUNT 1.4 10^3/uL (4.3-11.0)
[2019-03-31 11:28] LABS: ALANINE AMINOTRANSFERASE 53 U/L (0-55); ALBUMIN 3.5 GM/DL (3.2-4.5); ALKALINE PHOSPHATASE 70 U/L (40-136); BILIRUBIN,TOTAL 0.7 MG/DL (0.1-1.0); BUN/CREATININE RATIO 11; CALCIUM 8.4 MG/DL (8.5-10.1); CARBON DIOXIDE 28 MMOL/L (21-32); CHLORIDE 105 MMOL/L (98-107); CREATININE SERUM 0.63 MG/DL (0.60-1.30); GFR ESTIMATED > 60; GLUCOSE 148 MG/DL (70-105); POTASSIUM 3.9 MMOL/L (3.6-5.0); SODIUM 140 MMOL/L (135-145); TOTAL PROTEIN 5.5 GM/DL (6.4-8.2)
[2019-04-14 13:57] LABS: BASOPHILS % (AUTO) 0 % (0-10); EOSINOPHILS % (AUTO) 0 % (0-10); HEMATOCRIT 31 % (35-52); HEMOGLOBIN 9.9 G/DL (11.5-16.0); LYMPHOCYTES # (AUTO) 0.2 X 10^3 (1.0-4.0); LYMPHOCYTES % (AUTO) 7 % (12-44); MEAN CORPUSCULAR HEMOGLOBIN 31 PG (25-34); MEAN CORPUSCULAR HGB CONC 32 G/DL (32-36); MEAN CORPUSCULAR VOLUME 95 FL (80-99); MEAN PLATELET VOLUME 10.8 FL (7.4-10.4); MONOCYTES # (AUTO) 0.9 X 10^3 (0.0-1.0); MONOCYTES % (AUTO) 25 % (0-12); NEUTROPHILS # (AUTO) 2.4 X 10^3 (1.8-7.8); NEUTROPHILS % (AUTO) 68 % (42-75); PLATELET COUNT 113 10^3/uL (130-400); RED CELL DISTRIBUTION WIDTH 19.8 % (10.0-14.5); WHITE BLOOD COUNT 3.4 10^3/uL (4.3-11.0)
[2019-04-14 14:20] LABS: ALANINE AMINOTRANSFERASE 41 U/L (0-55); ALBUMIN 3.4 GM/DL (3.2-4.5); ALKALINE PHOSPHATASE 93 U/L (40-136); BILIRUBIN,TOTAL 0.7 MG/DL (0.1-1.0); BUN/CREATININE RATIO 9; CALCIUM 7.8 MG/DL (8.5-10.1); CARBON DIOXIDE 30 MMOL/L (21-32); CHLORIDE 100 MMOL/L (98-107); GFR ESTIMATED > 60; GLUCOSE 166 MG/DL (70-105); POTASSIUM 2.9 MMOL/L (3.6-5.0); SODIUM 140 MMOL/L (135-145); TOTAL PROTEIN 5.5 GM/DL (6.4-8.2)
[2019-04-21 10:21] LABS: BASOPHILS % (AUTO) 0 % (0-10); EOSINOPHILS % (AUTO) 1 % (0-10); HEMATOCRIT 29 % (35-52); HEMOGLOBIN 9.4 G/DL (11.5-16.0); LYMPHOCYTES # (AUTO) 0.2 X 10^3 (1.0-4.0); LYMPHOCYTES % (AUTO) 9 % (12-44); MEAN CORPUSCULAR HEMOGLOBIN 31 PG (25-34); MEAN CORPUSCULAR HGB CONC 32 G/DL (32-36); MEAN CORPUSCULAR VOLUME 98 FL (80-99); MONOCYTES # (AUTO) 0.3 X 10^3 (0.0-1.0); MONOCYTES % (AUTO) 14 % (0-12); NEUTROPHILS # (AUTO) 1.9 X 10^3 (1.8-7.8); NEUTROPHILS % (AUTO) 76 % (42-75); PLATELET COUNT 121 10^3/uL (130-400); RED CELL DISTRIBUTION WIDTH 20.8 % (10.0-14.5); WHITE BLOOD COUNT 2.5 10^3/uL (4.3-11.0)
[2019-04-21 10:39] LABS: BUN/CREATININE RATIO 6; CALCIUM 8.2 MG/DL (8.5-10.1); CARBON DIOXIDE 26 MMOL/L (21-32); CHLORIDE 106 MMOL/L (98-107); CREATININE SERUM 0.67 MG/DL (0.60-1.30); GFR ESTIMATED > 60; GLUCOSE 130 MG/DL (70-105); POTASSIUM 3.4 MMOL/L (3.6-5.0); SODIUM 142 MMOL/L (135-145)
[~2019-04-27] VITALS: Ht 172.7 cm; Wt 61.7 kg
[~2019-04-27 11:27] MED LIST changes: +ACET-2267 PO; +CTR IV SCH; +ERTA1VIA IJ; +FILGRASTIM 480 MCG/1.6 ML VIAL CANCER CENTER SQ SCH; +FLU QUADRIvalent (5+ YOA) 2019-2020 (Cancer Ctr) 0.5 ML IM ONE; +FLUC100T6 PO; +GEMCITABINE HCL 1 GM, GEMCITABINE HCL 300 MG in NS (IVPB) CANCER CENTER 100 ML IV SCH; +GEMCITABINE HCL IV SCH; +IBUP-30 PO; +MORP60TA52 PO; +NALO4SPR NS; +NS IV 1000 ML (CANCER CTR) 1,000 ML ONE; +NS IV 1000 ML (CANCER CTR) IV SCH; +NS IV SCH; +ONDA8TAB13 PO; +ONDANSETRON MDV (CANCER CENTER 8 MG, DEXAMETHASONE INJ (CANCER CTR) 4 MG in NS (IVPB) C... IV ONE; +PACLITAXEL PROTEIN IV SCH; +PACLitaxel PROTEIN 150 MG in EMPTY IV BAG (PVC) CANCER CTR 1 EA IV SCH; +PALONOSETRON HCL 0.25 MG, DEXAMETHASONE INJECTION 10 MG in NS (IVPB) CANCER CENTER 50 ML IV SCH; +PEGFILGRASTIM 6 MG/0.6 ML ONPRO KIT SQ SCH; +POTASSIUM CHL INJ (CANCER CTR) 20 MEQ in NS IV 1000 ML (CANCER CTR) 1,000 ML IV ONE; +PRED5TAB PO; +PROC10TA10 PO; +PROC25SU27 RC; +TIZA4TAB4 PO; +morphine INJ 4 MG/ML 1 ML (CANCER CTR) IV PRN
[2019-04-27 11:55] LABS: BASOPHILS % (AUTO) 0 % (0-10); EOSINOPHILS % (AUTO) 2 % (0-10); HEMATOCRIT 29 % (35-52); HEMOGLOBIN 9.4 G/DL (11.5-16.0); LYMPHOCYTES # (AUTO) 0.1 X 10^3 (1.0-4.0); LYMPHOCYTES % (AUTO) 16 % (12-44); MEAN CORPUSCULAR HEMOGLOBIN 32 PG (25-34); MEAN CORPUSCULAR HGB CONC 33 G/DL (32-36); MEAN CORPUSCULAR VOLUME 98 FL (80-99); MEAN PLATELET VOLUME 11.5 FL (7.4-10.4); MONOCYTES % (AUTO) 5 % (0-12); NEUTROPHILS # (AUTO) 0.4 X 10^3 (1.8-7.8); NEUTROPHILS % (AUTO) 77 % (42-75); PLATELET COUNT 83 10^3/uL (130-400); RED CELL DISTRIBUTION WIDTH 18.5 % (10.0-14.5)
[2019-04-27 11:56] LABS: WHITE BLOOD COUNT 0.6 10^3/uL (4.3-11.0)
[2019-04-27 12:12] LABS: BUN/CREATININE RATIO 9; CALCIUM 8.4 MG/DL (8.5-10.1); CARBON DIOXIDE 24 MMOL/L (21-32); CHLORIDE 105 MMOL/L (98-107); CREATININE SERUM 0.68 MG/DL (0.60-1.30); GFR ESTIMATED > 60; GLUCOSE 213 MG/DL (70-105); POTASSIUM 3.7 MMOL/L (3.6-5.0); SODIUM 139 MMOL/L (135-145)
[2019-04-28] MEDS ORDERED: PEGFILGRASTIM 6 MG/0.6ML NEULASTA SC ONE (12:06)
== END 2019-05-03 | disposition home or self-care (01) ==
LOC: ONC 11:27
PROVIDERS: ATTEND Internal Medicine Hematology & Oncology
DX: C25.0 Malignant neoplasm of head of pancreas (principal); D70.1 Agranulocytosis secondary to cancer chemotherapy; E03.9 Hypothyroidism, unspecified; I10 Essential (primary) hypertension; M32.9 Systemic lupus erythematosus, unspecified; Z79.899 Other long term (current) drug therapy; Z90.49 Acquired absence of other specified parts of digestive tract
CPT/HCPCS: 36415; 36591; 80048; 80053; 83735; 85025; 86301; 90471; 96361; 96372; 96374; 96375; 96413; 96415; 96417; 99213; J2505

== ENCOUNTER → 2019-05-03 | Outpatient (CLI) | payer BC ==
[~2019-05-03] MED LIST changes: -CTR IV SCH; -FILGRASTIM 480 MCG/1.6 ML VIAL CANCER CENTER SQ SCH; -FLU QUADRIvalent (5+ YOA) 2019-2020 (Cancer Ctr) 0.5 ML IM ONE; -GEMCITABINE HCL 1 GM, GEMCITABINE HCL 300 MG in NS (IVPB) CANCER CENTER 100 ML IV SCH; -GEMCITABINE HCL IV SCH; -NS IV 1000 ML (CANCER CTR) 1,000 ML ONE; -NS IV 1000 ML (CANCER CTR) IV SCH; -NS IV SCH; -ONDANSETRON MDV (CANCER CENTER 8 MG, DEXAMETHASONE INJ (CANCER CTR) 4 MG in NS (IVPB) C... IV ONE; -PACLITAXEL PROTEIN IV SCH; -PACLitaxel PROTEIN 150 MG in EMPTY IV BAG (PVC) CANCER CTR 1 EA IV SCH; -PALONOSETRON HCL 0.25 MG, DEXAMETHASONE INJECTION 10 MG in NS (IVPB) CANCER CENTER 50 ML IV SCH; -PEGFILGRASTIM 6 MG/0.6 ML ONPRO KIT SQ SCH; -POTASSIUM CHL INJ (CANCER CTR) 20 MEQ in NS IV 1000 ML (CANCER CTR) 1,000 ML IV ONE; -morphine INJ 4 MG/ML 1 ML (CANCER CTR) IV PRN
== END ==
LOC: LAB 10:07
PROVIDERS: ATTEND Surgery
DX: Z86.19 Personal history of other infectious and parasitic diseases (principal)
CPT/HCPCS: 87040

== ENCOUNTER → 2019-05-24 | Outpatient (CLI) | payer BC ==
[~2019-05-24] MED LIST changes: +HOLD METFORMIN - RECEIVED CONTRAST 20 ML VIAL IV SCH; +IOHEXOL 350 MG/ML 100 ML (OMNIPAQUE 350) VIAL IV ONE; -MORP-34 PO; +MORP-69 PO; -MORP60TA52 PO; +MORP60TA69 PO; +NS 100 ML (IVPB) BAG IV ONE; +OMEP-280 PO; -OMEP20CA13 PO
--- NOTE | 2019-05-24 15:36 | Diagnostic Imaging Report ---
PROCEDURE: CT abdomen with and without contrast. TECHNIQUE: Multiple contiguous axial CT images of the abdomen were obtained prior to and after intravenous administration of iodinated contrast. Auto Exposure Controls were utilized during the CT exam to meet ALARA standards for radiation dose reduction. INDICATION: Pancreatic carcinoma. Patient has increasing abdominal distention. Correlation is made with prior CT from 04/01/2019. FINDINGS: The lung bases are clear. Previously noted trace bilateral effusions have resolved. Liver again demonstrates diffuse low density consistent with hepatic steatosis. No discrete liver mass is detected. Gallbladder is surgically absent. No biliary ductal dilatation is seen. There are postsurgical changes of a Whipple procedure. The soft tissue surrounding the SMA appears similar to prior exam. No pancreatic ductal dilatation is seen. The spleen is stable. No adrenal mass is detected. Kidneys are unremarkable. Aorta is nonaneurysmal. Generalized mesenteric edema similar to prior exam. The bowel loops are normal caliber. No bowel obstruction is seen. There is a small amount of ascites. The amount of ascites appears to be slightly increased when compared with the prior CT. No well-formed fluid collection is identified. IMPRESSION: 1. Resolution of bilateral pleural effusions. 2. Slight increase in abdominal ascites since prior CT. Remainder of the study is stable. Dictated by: Dictated on workstation # [id number]
== END ==
LOC: RAD 13:52
PROVIDERS: ATTEND Nurse Practitioner Adult Health
DX: J90 Pleural effusion, not elsewhere classified (principal); C25.0 Malignant neoplasm of head of pancreas; R18.8 Other ascites
CPT/HCPCS: 74170

== ENCOUNTER → 2019-05-26 | Outpatient (CLI) | payer BC ==
[~2019-05-26] MED LIST changes: -HOLD METFORMIN - RECEIVED CONTRAST 20 ML VIAL IV SCH; -IOHEXOL 350 MG/ML 100 ML (OMNIPAQUE 350) VIAL IV ONE; -NS 100 ML (IVPB) BAG IV ONE
[2019-05-26 13:32] LABS: HEMATOCRIT 33 % (35-52); HEMOGLOBIN 10.6 G/DL (11.5-16.0); MEAN CORPUSCULAR HEMOGLOBIN 33 PG (25-34); MEAN CORPUSCULAR HGB CONC 32 G/DL (32-36); MEAN CORPUSCULAR VOLUME 101 FL (80-99); MEAN PLATELET VOLUME 11.7 FL (7.4-10.4); PLATELET COUNT 121 10^3/uL (130-400); RED CELL DISTRIBUTION WIDTH 20.1 % (10.0-14.5); WHITE BLOOD COUNT 9.9 10^3/uL (4.3-11.0)
[2019-05-26 13:33] LABS: BASOPHILS % (AUTO) 0 % (0-10); EOSINOPHILS % (AUTO) 0 % (0-10); LYMPHOCYTES # (AUTO) 0.5 X 10^3 (1.0-4.0); LYMPHOCYTES % (AUTO) 5 % (12-44); MONOCYTES # (AUTO) 1.4 X 10^3 (0.0-1.0); MONOCYTES % (AUTO) 14 % (0-12); NEUTROPHILS # (AUTO) 7.3 X 10^3 (1.8-7.8); NEUTROPHILS % (AUTO) 73 % (42-75)
[2019-05-26 13:45] LABS: BUN/CREATININE RATIO 11; CARBON DIOXIDE 27 MMOL/L (21-32); CHLORIDE 101 MMOL/L (98-107); CREATININE SERUM 0.71 MG/DL (0.60-1.30); GFR ESTIMATED > 60; POTASSIUM 3.1 MMOL/L (3.6-5.0); SODIUM 139 MMOL/L (135-145)
[2019-05-26 13:46] LABS: CALCIUM 7.9 MG/DL (8.5-10.1); GLUCOSE 105 MG/DL (70-105)
[2019-05-26 13:46] LABS: CLARITY,URINE CLEAR; COLOR,URINE YELLOW; GLUCOSE, URINE (UA) NEGATIVE (NEGATIVE); KETONES,URINE NEGATIVE (NEGATIVE); NITRITE,URINE NEGATIVE (NEGATIVE); PROTEIN,URINE NEGATIVE (NEGATIVE)
[2019-05-26 13:47] LABS: BACTERIA,URINE TRACE /HPF; BILIRUBIN,URINE 1+ (NEGATIVE); CALCIUM OXALATE CRYSTALS,UR FEW /LPF; LEUKOCYTE ESTERASE ,URINE NEGATIVE (NEGATIVE)
== END ==
LOC: LAB FS 12:59
PROVIDERS: ATTEND Nurse Practitioner Adult Health
DX: C25.0 Malignant neoplasm of head of pancreas (principal)
CPT/HCPCS: 36415; 80048; 81000; 85025

== ENCOUNTER → 2019-06-09 | Outpatient (CLI) | payer BC ==
[2019-06-09 13:48] LABS: WHITE BLOOD COUNT 2.9 10^3/uL (4.3-11.0)
[2019-06-09 13:50] LABS: HEMATOCRIT 28 % (35-52); MEAN CORPUSCULAR HEMOGLOBIN 32 PG (25-34); MEAN CORPUSCULAR HGB CONC 32 G/DL (32-36); MEAN CORPUSCULAR VOLUME 100 FL (80-99); RED CELL DISTRIBUTION WIDTH 18.7 % (10.0-14.5)
[2019-06-09 13:53] LABS: LYMPHOCYTES % (AUTO) 6 % (12-44); MONOCYTES % (AUTO) 19 % (0-12); NEUTROPHILS % (AUTO) 69 % (42-75); PLATELET COUNT 20 10^3/uL (130-400)
[2019-06-09 13:54] LABS: BASOPHILS % (AUTO) 1 % (0-10); EOSINOPHILS % (AUTO) 1 % (0-10); LYMPHOCYTES # (AUTO) 0.2 X 10^3 (1.0-4.0); MONOCYTES # (AUTO) 0.5 X 10^3 (0.0-1.0)
[2019-06-09 14:18] LABS: BUN/CREATININE RATIO 10; CARBON DIOXIDE 26 MMOL/L (21-32); CHLORIDE 99 MMOL/L (98-107); CREATININE SERUM 0.68 MG/DL (0.60-1.30); GFR ESTIMATED > 60; GLUCOSE 110 MG/DL (70-105); POTASSIUM 3.8 MMOL/L (3.6-5.0); SODIUM 135 MMOL/L (135-145)
== END ==
LOC: LAB FS 13:32
PROVIDERS: ATTEND Nurse Practitioner Adult Health
DX: C25.0 Malignant neoplasm of head of pancreas (principal)
CPT/HCPCS: 36415; 80048; 85025

== ENCOUNTER → 2019-07-07 | Outpatient (CLI) | payer BC ==
[~2019-07-07] MED LIST changes: -OMEP-280 PO; +OMEP20CA18 PO
[2019-07-07 13:14] LABS: HEMATOCRIT 23 % (35-52); HEMOGLOBIN 7.7 G/DL (11.5-16.0); WHITE BLOOD COUNT 2.3 10^3/uL (4.3-11.0)
[2019-07-07 13:15] LABS: MEAN CORPUSCULAR HEMOGLOBIN 34 PG (25-34); MEAN CORPUSCULAR HGB CONC 33 G/DL (32-36); MEAN CORPUSCULAR VOLUME 102 FL (80-99); RED CELL DISTRIBUTION WIDTH 21.5 % (10.0-14.5)
[2019-07-07 13:16] LABS: LYMPHOCYTES % (AUTO) 5 % (12-44); NEUTROPHILS % (AUTO) 88 % (42-75); PLATELET COUNT 28 10^3/uL (130-400)
[2019-07-07 13:17] LABS: BASOPHILS % (AUTO) 0 % (0-10); LYMPHOCYTES # (AUTO) 0.1 X 10^3 (1.0-4.0); MONOCYTES # (AUTO) 0.1 X 10^3 (0.0-1.0); NEUTROPHILS # (AUTO) 2.1 X 10^3 (1.8-7.8)
[2019-07-07 13:18] LABS: EOSINOPHILS % (AUTO) 1 % (0-10)
[2019-07-07 13:19] LABS: MONOCYTES % (AUTO) 5 % (0-12)
[2019-07-07 13:30] LABS: CARBON DIOXIDE 27 MMOL/L (21-32); CHLORIDE 98 MMOL/L (98-107); POTASSIUM 4.2 MMOL/L (3.6-5.0); SODIUM 134 MMOL/L (135-145)
[2019-07-07 13:31] LABS: BUN/CREATININE RATIO 21; GFR ESTIMATED > 60; GLUCOSE 187 MG/DL (70-105)
== END ==
LOC: LAB FS 12:51
PROVIDERS: ATTEND Internal Medicine Hematology & Oncology
DX: C25.9 Malignant neoplasm of pancreas, unspecified (principal)
CPT/HCPCS: 36415; 80048; 85025

== ENCOUNTER → 2019-07-12 | Outpatient (CLI) | payer BC ==
[~2019-07-12] MED LIST changes: +CATHETER FLUSH 10 ML SYR IV PRN; +HOLD METFORMIN - RECEIVED CONTRAST 20 ML VIAL IV SCH; +IOHEXOL 350 MG/ML 100 ML (OMNIPAQUE 350) VIAL IV ONE; +NS 100 ML (IVPB) BAG IV ONE
--- NOTE | 2019-07-12 14:04 | Diagnostic Imaging Report ---
EXAMINATION: CT Abdomen Pelvis with and without intravenous contrast. TECHNIQUE: Precontrast acquisitions were acquired through the abdomen and pelvis. Multiple contiguous axial images were obtained through the abdomen and pelvis after the administration of intravenous contrast. All CT scans use one or more of the following dose optimizing techniques: automated exposure control, MA and/or KvP adjustment based on a patient size and exam type, or iterative reconstruction. HISTORY: Pancreatic cancer. COMPARISON: 05/24/2019. FINDINGS: Limited views of the lower thorax show mild atelectasis. There is new moderate-volume ascites. Soft tissues extending from the liver surface to the peritoneum along the right inferior liver is new from prior exam. While this may represent an adhesion, it is concerning for peritoneal metastatic disease (series 4, image 27). There is unchanged soft tissue thickening adjacent to the superior mesenteric artery, concerning for local recurrence. Superior mesenteric artery is attenuated at this location but remains patent. There has been a Whipple procedure. Spleen and adrenal glands are normal. There is diffuse body wall edema. The kidneys are normal. There is no hydronephrosis. Urinary bladder is normal. Visualized bowel is normal in caliber without obstruction or inflammation. No free fluid or air. No abdominal or pelvic lymphadenopathy. Aorta is normal in caliber without aneurysm. There are no suspicious osseus lesions. IMPRESSION: 1. Unchanged soft tissues at the superior mesenteric artery. 2. There is soft tissue associated with the surface of the liver in the setting of new moderate-volume ascites. While this could potentially represent an adhesion, it is more concerning for peritoneal metastatic disease. 3. Diffuse body wall edema and mesenteric edema. Dictated by: Dictated on workstation # [id number]
== END ==
LOC: RAD 13:13
PROVIDERS: ATTEND Nurse Practitioner Adult Health
DX: C25.0 Malignant neoplasm of head of pancreas (principal)
CPT/HCPCS: 74178

== ENCOUNTER → 2019-07-14 | Outpatient (CLI) | payer BC ==
[~2019-07-14] VITALS: Ht 175.3 cm; Wt 75.5 kg
[~2019-07-14] MED LIST changes: -CATHETER FLUSH 10 ML SYR IV PRN; -HOLD METFORMIN - RECEIVED CONTRAST 20 ML VIAL IV SCH; -IOHEXOL 350 MG/ML 100 ML (OMNIPAQUE 350) VIAL IV ONE; +LIDOCAINE 1% INJ 20 ML 20 ML VIAL INJ ONE; -NS 100 ML (IVPB) BAG IV ONE
[2019-07-14 12:56] LABS: AMYLASE,BODY FLUID 6 U/L; GLUCOSE,BODY FLUID 85 MG/DL; LDH,BODY FLUID 57 U/L; TOTAL PROTEIN,BODY FLUID 0.8 G/DL
[2019-07-14 13:26] LABS: BODY FLUID APPEARENCE SLT CLDY; BODY FLUID COLOR YELLOW; BODY FLUID RBC COUNT 293 /uL; BODY FLUID SOURCE PERITON; BODY FLUID WBC TOTAL COUNT 128 /uL
--- NOTE | 2019-07-14 13:32 | Diagnostic Imaging Report ---
INDICATION: Ascites. All 4 quadrants of the abdomen were evaluated for fluid. There is moderate fluid in the right upper quadrant with mild fluid in the right lower quadrant. Left upper quadrant is unremarkable. Small amount of fluid in left lower quadrant. Right lower quadrant was marked. Paracentesis was performed by Dr. Frank. A total of 1250 mL of fluid was removed. IMPRESSION: Sonographic guidance for Dr. Frank for paracentesis, obtaining 1250 mL's of fluid. Dictated by: Dictated on workstation # [id number]
[2019-07-14 14:14] LABS: BF OTHER CELLS 3 %; LYMPHOCYTES,BODY FLUID 91 %
--- NOTE | 2019-07-14 14:28 | OPERATIVE REPORT ---
DATE OF SERVICE: 07/14/2019 PREOPERATIVE DIAGNOSIS: Ascites. POSTOPERATIVE DIAGNOSIS: Ascites, pending pathology. PROCEDURE: Ultrasound-guided paracentesis. SURGEON: Marty Frank DO SPECIAL NEEDS NANNY: None. ANESTHESIA: Local lidocaine. BLOOD LOSS: Scant. FLUIDS: None. SPECIMEN: Fluid obtained from paracentesis. 1250cc INDICATION FOR PROCEDURE: The patient is a 48-year-old female who unfortunately has a history of pancreatic cancer, now has developed some ascites and needs a paracentesis to drain this will be sent for cultures. FINDINGS: The patient had paracentesis done and fluid obtained and sent to pathology. PROCEDURE NOTE: After informed consent was obtained, the patient was in the procedure room, down in radiology. Ultrasound had marked the site. She was then sterilely prepped and draped in normal fashion. Local lidocaine was used to infiltrate the skin and then towards the abdomen tried to infiltrate local lidocaine down, then made a stab incision with #11 blade and then advanced the safety needle through the catheter, pushed this gently in and then once entered the abdomen, got a good flash of ascitic fluid. Pulled the needle out and advanced the catheter over the needle. This was then hooked to vacutainer suction to suction this out. The patient tolerated the procedure. Sponge, instrument and needle count correct at the end of the case. Job ID: [id number] DocumentID: [id number] Dictated Date: 07/14/2019 11:43:34 Professor Of Environmental Studies Date: 07/14/2019 14:27:21 Dictated By: MARTY FRANK DO MTDD
== END ==
LOC: RAD 10:37
PROVIDERS: ATTEND Surgery
DX: R18.8 Other ascites (principal); C25.9 Malignant neoplasm of pancreas, unspecified
CPT/HCPCS: 49083; 82150; 82570; 82945; 83615; 84157; 87070; 87075; 87101; 87116; 87205; 87206; 89051

== ENCOUNTER → 2019-07-28 | Outpatient (CLI) | payer BC ==
[~2019-07-28] VITALS: Ht 175.3 cm; Wt 80.9 kg
[~2019-07-28] MED LIST changes: -LIDOCAINE 1% INJ 20 ML 20 ML VIAL INJ ONE
--- NOTE | 2019-07-28 15:31 | Diagnostic Imaging Report ---
INDICATION: Ascites. FINDINGS: All four quadrants of the abdomen were evaluated for ascites. There is moderate fluid in the right upper quadrant and right lower quadrant. Only minimal fluid in the left upper quadrant is seen with moderate fluid in the left lower quadrant. Largest pocket is located in the left lower quadrant. This was marked on the patient's skin. Paracentesis was performed by Dr. Frank. IMPRESSION: Sonographic guidance for Dr. Singh for paracentesis. Dictated by: Dictated on workstation # [id number]
--- NOTE | 2019-07-28 20:00 | OPERATIVE REPORT ---
DATE OF SERVICE: PREOPERATIVE DIAGNOSIS: Ascites. POSTOPERATIVE DIAGNOSIS: Ascites. PROCEDURE: Paracentesis with ultrasound guidance. SURGEON: Marty Frank DO AIR HOIST OPERATOR: None. ANESTHESIA: Local lidocaine. BLOOD LOSS: Scant. FLUIDS: None. SPECIMEN: 2400 mL of abdominal fluid. INDICATION FOR PROCEDURE: The patient is a 48-year-old female who unfortunately has pancreatic cancer and has now had a second episode of ascitic fluid needed to be drained. FINDINGS: The patient had a 2400 mL of ascitic fluid drained that was a clear yellow. PROCEDURE NOTE: After informed consent was obtained, the patient was in the radiology procedure room. She was sterilely prepped and draped, a timeout was performed, everyone agreed. I then infiltrated the skin with local lidocaine, approximately 5 mL. This has already been marked by the facility maintenance technician to lon the largest pocket of fluid. I made a small stab incision with #11 blade and advanced the safety needle with negative inspiration gently through all the layers of tissue, felt it gently pop in and able to get a good flash of yellow liquid. Removed the needle and slide the catheter down into the abdomen. The patient tolerated the procedure. No pain. The catheter was then hooked up to vacutainer and suctioned out 2400 mL of clear yellow fluid. Unable to get any more even with rolling the patient around and at this point then removed the catheter. The patient tolerated the procedure. Area was cleaned and dried and a Band-Aid placed. She was then sent home in stable condition. Job ID: [id number] DocumentID: [id number] Dictated Date: 07/28/2019 15:12:01 Carbon Printer Date: 07/28/2019 19:59:58 Dictated By: MARTY FRANK DO
== END ==
LOC: RAD 13:01
PROVIDERS: ATTEND Surgery
DX: R18.8 Other ascites (principal)
CPT/HCPCS: 49083

== ENCOUNTER → 2019-08-03 | Outpatient (CLI) | payer BC ==
[2019-08-03 13:07] LABS: BUN/CREATININE RATIO 26; CALCIUM 7.6 MG/DL (8.5-10.1); CARBON DIOXIDE 24 MMOL/L (21-32); CHLORIDE 95 MMOL/L (98-107); CREATININE SERUM 0.62 MG/DL (0.60-1.30); GFR ESTIMATED > 60; GLUCOSE 91 MG/DL (70-105); POTASSIUM 3.8 MMOL/L (3.6-5.0); SODIUM 129 MMOL/L (135-145)
[2019-08-03 13:30] LABS: HEMATOCRIT 29 % (35-52); HEMOGLOBIN 9.7 G/DL (11.5-16.0); MEAN CORPUSCULAR HEMOGLOBIN 34 PG (25-34); MEAN CORPUSCULAR HGB CONC 33 G/DL (32-36); MEAN CORPUSCULAR VOLUME 102 FL (80-99); RED CELL DISTRIBUTION WIDTH 17.7 % (10.0-14.5); WHITE BLOOD COUNT 0.9 10^3/uL (4.3-11.0)
[2019-08-03 13:31] LABS: BASOPHILS % (AUTO) 1 % (0-10); EOSINOPHILS % (AUTO) 2 % (0-10); LYMPHOCYTES # (AUTO) 0.2 X 10^3 (1.0-4.0); LYMPHOCYTES % (AUTO) 17 % (12-44); MONOCYTES # (AUTO) 0.4 X 10^3 (0.0-1.0); MONOCYTES % (AUTO) 6 % (0-12); NEUTROPHILS # (AUTO) 0.6 X 10^3 (1.8-7.8); NEUTROPHILS % (AUTO) 72 % (42-75); PLATELET COUNT 15 10^3/uL (130-400)
== END ==
LOC: LAB FS 12:19
PROVIDERS: ATTEND Internal Medicine Hematology & Oncology
DX: C25.0 Malignant neoplasm of head of pancreas (principal)
CPT/HCPCS: 36415; 80048; 85025

== ENCOUNTER 2019-08-04 13:40 | Outpatient (RCR) | payer BC ==
[2019-05-12 14:09] LABS: BASOPHILS % (AUTO) 0 % (0-10); EOSINOPHILS % (AUTO) 0 % (0-10); HEMATOCRIT 30 % (35-52); HEMOGLOBIN 9.5 G/DL (11.5-16.0); LYMPHOCYTES # (AUTO) 0.5 X 10^3 (1.0-4.0); LYMPHOCYTES % (AUTO) 15 % (12-44); MEAN CORPUSCULAR HEMOGLOBIN 33 PG (25-34); MEAN CORPUSCULAR HGB CONC 32 G/DL (32-36); MEAN CORPUSCULAR VOLUME 102 FL (80-99); MEAN PLATELET VOLUME 11.2 FL (7.4-10.4); MONOCYTES # (AUTO) 0.5 X 10^3 (0.0-1.0); MONOCYTES % (AUTO) 14 % (0-12); NEUTROPHILS # (AUTO) 2.3 X 10^3 (1.8-7.8); NEUTROPHILS % (AUTO) 71 % (42-75); PLATELET COUNT 118 10^3/uL (130-400); RED CELL DISTRIBUTION WIDTH 22.1 % (10.0-14.5); WHITE BLOOD COUNT 3.3 10^3/uL (4.3-11.0)
[2019-05-12 14:30] LABS: ALANINE AMINOTRANSFERASE 19 U/L (0-55); ALBUMIN 3.2 GM/DL (3.2-4.5); ALKALINE PHOSPHATASE 92 U/L (40-136); BILIRUBIN,TOTAL 0.9 MG/DL (0.1-1.0); BUN/CREATININE RATIO 9; CARBON DIOXIDE 21 MMOL/L (21-32); CHLORIDE 103 MMOL/L (98-107); CREATININE SERUM 0.65 MG/DL (0.60-1.30); GFR ESTIMATED > 60; GLUCOSE 182 MG/DL (70-105); POTASSIUM 3.8 MMOL/L (3.6-5.0); SODIUM 136 MMOL/L (135-145); TOTAL PROTEIN 5.5 GM/DL (6.4-8.2)
[2019-05-18 09:17] LABS: BASOPHILS % (AUTO) 1 % (0-10); EOSINOPHILS % (AUTO) 0 % (0-10); HEMATOCRIT 24 % (35-52); HEMOGLOBIN 7.5 G/DL (11.5-16.0); LYMPHOCYTES # (AUTO) 0.2 X 10^3 (1.0-4.0); LYMPHOCYTES % (AUTO) 22 % (12-44); MEAN CORPUSCULAR HEMOGLOBIN 32 PG (25-34); MEAN CORPUSCULAR HGB CONC 32 G/DL (32-36); MEAN CORPUSCULAR VOLUME 101 FL (80-99); MEAN PLATELET VOLUME 10.9 FL (7.4-10.4); MONOCYTES # (AUTO) 0.1 X 10^3 (0.0-1.0); MONOCYTES % (AUTO) 7 % (0-12); NEUTROPHILS # (AUTO) 0.5 X 10^3 (1.8-7.8); NEUTROPHILS % (AUTO) 70 % (42-75); PLATELET COUNT 82 10^3/uL (130-400); RED CELL DISTRIBUTION WIDTH 18.6 % (10.0-14.5)
[2019-05-18 09:22] LABS: WHITE BLOOD COUNT 0.7 10^3/uL (4.3-11.0)
[2019-05-18 09:38] LABS: BUN/CREATININE RATIO 17; CALCIUM 7.7 MG/DL (8.5-10.1); CARBON DIOXIDE 25 MMOL/L (21-32); CHLORIDE 102 MMOL/L (98-107); CREATININE SERUM 0.59 MG/DL (0.60-1.30); GFR ESTIMATED > 60; GLUCOSE 101 MG/DL (70-105); POTASSIUM 3.9 MMOL/L (3.6-5.0); SODIUM 135 MMOL/L (135-145)
[2019-05-24 15:52] LABS: BASOPHILS # (AUTO) 0.1 10^3/uL (0.0-0.1); BASOPHILS % (AUTO) 1 % (0-10); EOSINOPHILS % (AUTO) 0 % (0-10); HEMATOCRIT 35 % (35-52); HEMOGLOBIN 11.1 G/DL (11.5-16.0); LYMPHOCYTES # (AUTO) 0.7 X 10^3 (1.0-4.0); LYMPHOCYTES % (AUTO) 7 % (12-44); MEAN CORPUSCULAR HEMOGLOBIN 31 PG (25-34); MEAN CORPUSCULAR HGB CONC 32 G/DL (32-36); MEAN CORPUSCULAR VOLUME 99 FL (80-99); MEAN PLATELET VOLUME 11.8 FL (7.4-10.4); MONOCYTES # (AUTO) 2.4 X 10^3 (0.0-1.0); MONOCYTES % (AUTO) 22 % (0-12); NEUTROPHILS # (AUTO) 7.5 X 10^3 (1.8-7.8); NEUTROPHILS % (AUTO) 70 % (42-75); PLATELET COUNT 107 10^3/uL (130-400); RED CELL DISTRIBUTION WIDTH 20.2 % (10.0-14.5); WHITE BLOOD COUNT 10.7 10^3/uL (4.3-11.0)
[2019-05-24 16:37] LABS: ALANINE AMINOTRANSFERASE 25 U/L (0-55); ALBUMIN 3.4 GM/DL (3.2-4.5); ALKALINE PHOSPHATASE 88 U/L (40-136); BILIRUBIN,TOTAL 1.2 MG/DL (0.1-1.0); BUN/CREATININE RATIO 10; CALCIUM 8.3 MG/DL (8.5-10.1); CARBON DIOXIDE 22 MMOL/L (21-32); CHLORIDE 103 MMOL/L (98-107); CREATININE SERUM 0.71 MG/DL (0.60-1.30); GFR ESTIMATED > 60; GLUCOSE 91 MG/DL (70-105); MAGNESIUM 1.5 MG/DL (1.6-2.4); POTASSIUM 3.8 MMOL/L (3.6-5.0); SODIUM 138 MMOL/L (135-145); TOTAL PROTEIN 5.9 GM/DL (6.4-8.2)
[2019-06-02 10:08] LABS: BASOPHILS % (AUTO) 0 % (0-10); EOSINOPHILS % (AUTO) 1 % (0-10); HEMATOCRIT 31 % (35-52); LYMPHOCYTES # (AUTO) 0.5 X 10^3 (1.0-4.0); LYMPHOCYTES % (AUTO) 8 % (12-44); MEAN CORPUSCULAR HEMOGLOBIN 32 PG (25-34); MEAN CORPUSCULAR HGB CONC 32 G/DL (32-36); MEAN CORPUSCULAR VOLUME 100 FL (80-99); MEAN PLATELET VOLUME 11.4 FL (7.4-10.4); MONOCYTES % (AUTO) 17 % (0-12); NEUTROPHILS # (AUTO) 4.6 X 10^3 (1.8-7.8); NEUTROPHILS % (AUTO) 75 % (42-75); PLATELET COUNT 97 10^3/uL (130-400); RED CELL DISTRIBUTION WIDTH 20.8 % (10.0-14.5); WHITE BLOOD COUNT 6.1 10^3/uL (4.3-11.0)
[2019-06-02 10:30] LABS: ALANINE AMINOTRANSFERASE 13 U/L (0-55); ALBUMIN 2.9 GM/DL (3.2-4.5); ALKALINE PHOSPHATASE 85 U/L (40-136); BILIRUBIN,TOTAL 0.6 MG/DL (0.1-1.0); BUN/CREATININE RATIO 8; CARBON DIOXIDE 29 MMOL/L (21-32); CHLORIDE 104 MMOL/L (98-107); CREATININE SERUM 0.63 MG/DL (0.60-1.30); GFR ESTIMATED > 60; GLUCOSE 80 MG/DL (70-105); POTASSIUM 3.9 MMOL/L (3.6-5.0); SODIUM 140 MMOL/L (135-145)
[2019-06-17 10:17] LABS: BASOPHILS % (AUTO) 0 % (0-10); EOSINOPHILS % (AUTO) 1 % (0-10); HEMATOCRIT 29 % (35-52); HEMOGLOBIN 9.4 G/DL (11.5-16.0); LYMPHOCYTES # (AUTO) 0.4 X 10^3 (1.0-4.0); LYMPHOCYTES % (AUTO) 6 % (12-44); MEAN CORPUSCULAR HEMOGLOBIN 33 PG (25-34); MEAN CORPUSCULAR HGB CONC 33 G/DL (32-36); MEAN CORPUSCULAR VOLUME 99 FL (80-99); MEAN PLATELET VOLUME 10.9 FL (7.4-10.4); MONOCYTES # (AUTO) 0.6 X 10^3 (0.0-1.0); MONOCYTES % (AUTO) 9 % (0-12); NEUTROPHILS # (AUTO) 5.5 X 10^3 (1.8-7.8); NEUTROPHILS % (AUTO) 85 % (42-75); PLATELET COUNT 111 10^3/uL (130-400); RED CELL DISTRIBUTION WIDTH 21.3 % (10.0-14.5); WHITE BLOOD COUNT 6.5 10^3/uL (4.3-11.0)
[2019-06-17 10:34] LABS: BUN/CREATININE RATIO 10; CALCIUM 7.5 MG/DL (8.5-10.1); CARBON DIOXIDE 25 MMOL/L (21-32); CHLORIDE 104 MMOL/L (98-107); CREATININE SERUM 0.61 MG/DL (0.60-1.30); GFR ESTIMATED > 60; GLUCOSE 97 MG/DL (70-105); POTASSIUM 3.5 MMOL/L (3.6-5.0); SODIUM 136 MMOL/L (135-145)
[2019-06-30 13:00] LABS: BASOPHILS # (AUTO) 0.2 10^3/uL (0.0-0.1); BASOPHILS % (AUTO) 1 % (0-10); EOSINOPHILS % (AUTO) 0 % (0-10); HEMATOCRIT 28 % (35-52); HEMOGLOBIN 9.2 G/DL (11.5-16.0); LYMPHOCYTES # (AUTO) 0.7 X 10^3 (1.0-4.0); LYMPHOCYTES % (AUTO) 2 % (12-44); MEAN CORPUSCULAR HEMOGLOBIN 33 PG (25-34); MEAN CORPUSCULAR HGB CONC 33 G/DL (32-36); MEAN CORPUSCULAR VOLUME 101 FL (80-99); MEAN PLATELET VOLUME 10.9 FL (7.4-10.4); MONOCYTES # (AUTO) 2.7 X 10^3 (0.0-1.0); MONOCYTES % (AUTO) 8 % (0-12); NEUTROPHILS # (AUTO) 31.8 X 10^3 (1.8-7.8); NEUTROPHILS % (AUTO) 90 % (42-75); PLATELET COUNT 89 10^3/uL (130-400); RED CELL DISTRIBUTION WIDTH 23.5 % (10.0-14.5)
[2019-06-30 13:02] LABS: WHITE BLOOD COUNT 35.4 10^3/uL (4.3-11.0)
[2019-06-30 13:20] LABS: ALANINE AMINOTRANSFERASE 17 U/L (0-55); ALBUMIN 2.8 GM/DL (3.2-4.5); ALKALINE PHOSPHATASE 175 U/L (40-136); BUN/CREATININE RATIO 12; CALCIUM 7.7 MG/DL (8.5-10.1); CARBON DIOXIDE 27 MMOL/L (21-32); CHLORIDE 100 MMOL/L (98-107); CREATININE SERUM 0.67 MG/DL (0.60-1.30); GFR ESTIMATED > 60; GLUCOSE 121 MG/DL (70-105); POTASSIUM 3.8 MMOL/L (3.6-5.0); SODIUM 135 MMOL/L (135-145)
[2019-07-11 13:18] LABS: BASOPHILS % (AUTO) 2 % (0-10); EOSINOPHILS % (AUTO) 0 % (0-10); HEMATOCRIT 23 % (35-52); HEMOGLOBIN 7.4 G/DL (11.5-16.0); LYMPHOCYTES # (AUTO) 0.2 X 10^3 (1.0-4.0); LYMPHOCYTES % (AUTO) 25 % (12-44); MEAN CORPUSCULAR HEMOGLOBIN 33 PG (25-34); MEAN CORPUSCULAR HGB CONC 33 G/DL (32-36); MEAN CORPUSCULAR VOLUME 102 FL (80-99); MEAN PLATELET VOLUME 11.2 FL (7.4-10.4); MONOCYTES # (AUTO) 0.3 X 10^3 (0.0-1.0); MONOCYTES % (AUTO) 31 % (0-12); NEUTROPHILS # (AUTO) 0.4 X 10^3 (1.8-7.8); NEUTROPHILS % (AUTO) 42 % (42-75); WHITE BLOOD COUNT 0.9 10^3/uL (4.3-11.0)
[2019-07-11 13:19] LABS: PLATELET COUNT 35 10^3/uL (130-400)
[2019-07-11 13:39] LABS: ALANINE AMINOTRANSFERASE 16 U/L (0-55); ALBUMIN 2.5 GM/DL (3.2-4.5); ALKALINE PHOSPHATASE 78 U/L (40-136); BILIRUBIN,TOTAL 1.4 MG/DL (0.1-1.0); BUN/CREATININE RATIO 13; CALCIUM 7.5 MG/DL (8.5-10.1); CARBON DIOXIDE 28 MMOL/L (21-32); CHLORIDE 100 MMOL/L (98-107); CREATININE SERUM 0.72 MG/DL (0.60-1.30); GFR ESTIMATED > 60; GLUCOSE 99 MG/DL (70-105); POTASSIUM 3.4 MMOL/L (3.6-5.0); SODIUM 133 MMOL/L (135-145); TOTAL PROTEIN 4.5 GM/DL (6.4-8.2)
[2019-07-19 10:11] LABS: BASOPHILS % (AUTO) 0 % (0-10); EOSINOPHILS % (AUTO) 1 % (0-10); HEMATOCRIT 32 % (35-52); HEMOGLOBIN 10.4 G/DL (11.5-16.0); LYMPHOCYTES # (AUTO) 0.4 X 10^3 (1.0-4.0); LYMPHOCYTES % (AUTO) 12 % (12-44); MEAN CORPUSCULAR HEMOGLOBIN 33 PG (25-34); MEAN CORPUSCULAR HGB CONC 33 G/DL (32-36); MEAN CORPUSCULAR VOLUME 101 FL (80-99); MONOCYTES # (AUTO) 1.1 X 10^3 (0.0-1.0); MONOCYTES % (AUTO) 36 % (0-12); NEUTROPHILS # (AUTO) 1.6 X 10^3 (1.8-7.8); NEUTROPHILS % (AUTO) 51 % (42-75); PLATELET COUNT 138 10^3/uL (130-400); RED CELL DISTRIBUTION WIDTH 20.7 % (10.0-14.5); WHITE BLOOD COUNT 3.2 10^3/uL (4.3-11.0)
[2019-07-19 10:38] LABS: ALANINE AMINOTRANSFERASE 12 U/L (0-55); ALBUMIN 2.7 GM/DL (3.2-4.5); ALKALINE PHOSPHATASE 106 U/L (40-136); BILIRUBIN,TOTAL 1.3 MG/DL (0.1-1.0); BUN/CREATININE RATIO 16; CALCIUM 7.5 MG/DL (8.5-10.1); CARBON DIOXIDE 24 MMOL/L (21-32); CHLORIDE 102 MMOL/L (98-107); CREATININE SERUM 0.69 MG/DL (0.60-1.30); GFR ESTIMATED > 60; GLUCOSE 114 MG/DL (70-105); MAGNESIUM 1.6 MG/DL (1.6-2.4); POTASSIUM 3.5 MMOL/L (3.6-5.0); SODIUM 134 MMOL/L (135-145); TOTAL PROTEIN 4.9 GM/DL (6.4-8.2)
[2019-07-26 13:28] LABS: BASOPHILS % (AUTO) 0 % (0-10); EOSINOPHILS % (AUTO) 0 % (0-10); HEMATOCRIT 33 % (35-52); HEMOGLOBIN 10.4 G/DL (11.5-16.0); LYMPHOCYTES # (AUTO) 0.5 X 10^3 (1.0-4.0); LYMPHOCYTES % (AUTO) 10 % (12-44); MEAN CORPUSCULAR HEMOGLOBIN 33 PG (25-34); MEAN CORPUSCULAR HGB CONC 32 G/DL (32-36); MEAN CORPUSCULAR VOLUME 103 FL (80-99); MEAN PLATELET VOLUME 9.8 FL (7.4-10.4); MONOCYTES % (AUTO) 21 % (0-12); NEUTROPHILS # (AUTO) 3.1 X 10^3 (1.8-7.8); NEUTROPHILS % (AUTO) 68 % (42-75); PLATELET COUNT 102 10^3/uL (130-400); RED CELL DISTRIBUTION WIDTH 19.5 % (10.0-14.5); WHITE BLOOD COUNT 4.5 10^3/uL (4.3-11.0)
[2019-07-26 13:43] LABS: BUN/CREATININE RATIO 23; CALCIUM 7.5 MG/DL (8.5-10.1); CARBON DIOXIDE 24 MMOL/L (21-32); CHLORIDE 105 MMOL/L (98-107); CREATININE SERUM 0.66 MG/DL (0.60-1.30); GFR ESTIMATED > 60; GLUCOSE 136 MG/DL (70-105); POTASSIUM 3.8 MMOL/L (3.6-5.0); SODIUM 137 MMOL/L (135-145)
[~2019-08-04 13:40] MED LIST changes: +ATROPINE INJ 0.4 MG/ML SDV (CANCER CENTER) INJ SCH; +CTR IV SCH; +D5W IV SCH; +FILGRASTIM 480 MCG/1.6 ML VIAL CANCER CENTER SQ SCH; +FOSAPREPITANT DIMEGLUMINE 150 MG in NS (IVPB) CANCER CENTER ONLY 150 ML IV SCH; +GEMCITABINE HCL 1 GM, GEMCITABINE HCL 200 MG in NS (IVPB) CANCER CENTER 100 ML IV SCH; +GEMCITABINE HCL 1 GM, GEMCITABINE HCL 300 MG in NS (IVPB) CANCER CENTER 100 ML IV SCH; +IRINOTECAN LIPOSOMAL IV SCH; +LEUCOVORIN CALCIUM 500 MG, LEUCOVORIN CALCIUM 100 MG in D5W 250 ML IVPB (CANCER CTR) 25... IV SCH; +NS IV 1000 ML (CANCER CTR) IV SCH; +NS IV 500 ML (CANCER CENTER) 500 ML ONE; +PACLITAXEL PROTEIN IV SCH; +PACLitaxel PROTEIN 130 MG in EMPTY IV BAG (PVC) CANCER CTR 1 EA IV SCH; +PALONOSETRON HCL 0.25 MG, DEXAMETHASONE INJECTION 10 MG in NS (IVPB) CANCER CENTER 50 ML IV SCH; +PEGFILGRASTIM 6 MG/0.6 ML ONPRO KIT SQ SCH; +PEGFILGRASTIM 6 MG/0.6ML NEULASTA SC SCH; +morphine INJ 4 MG/ML 1 ML (CANCER CTR) IV PRN
[2019-08-04 14:11] LABS: BASOPHILS % (AUTO) 0 % (0-10); EOSINOPHILS % (AUTO) 0 % (0-10); HEMATOCRIT 30 % (35-52); LYMPHOCYTES # (AUTO) 0.1 X 10^3 (1.0-4.0); LYMPHOCYTES % (AUTO) 37 % (12-44); MEAN CORPUSCULAR HEMOGLOBIN 33 PG (25-34); MEAN CORPUSCULAR HGB CONC 33 G/DL (32-36); MEAN CORPUSCULAR VOLUME 99 FL (80-99); MONOCYTES % (AUTO) 13 % (0-12); NEUTROPHILS # (AUTO) 0.2 X 10^3 (1.8-7.8); NEUTROPHILS % (AUTO) 50 % (42-75); RED CELL DISTRIBUTION WIDTH 17.6 % (10.0-14.5)
[2019-08-04 14:13] LABS: WHITE BLOOD COUNT 0.3 10^3/uL (4.3-11.0)
[2019-08-04 14:14] LABS: PLATELET COUNT 18 10^3/uL (130-400)
[2019-08-04 14:30] LABS: ALANINE AMINOTRANSFERASE 16 U/L (0-55); ALBUMIN 2.5 GM/DL (3.2-4.5); ALKALINE PHOSPHATASE 86 U/L (40-136); BILIRUBIN,TOTAL 1.4 MG/DL (0.1-1.0); BUN/CREATININE RATIO 23; CALCIUM 7.3 MG/DL (8.5-10.1); CARBON DIOXIDE 25 MMOL/L (21-32); CHLORIDE 98 MMOL/L (98-107); GFR ESTIMATED > 60; GLUCOSE 111 MG/DL (70-105); POTASSIUM 3.9 MMOL/L (3.6-5.0); SODIUM 130 MMOL/L (135-145); TOTAL PROTEIN 4.8 GM/DL (6.4-8.2)
[2019-08-04] MEDS ORDERED: NS IV 500 ML (CANCER CENTER) 500 ML ONE (14:34)
[2019-08-04] MEDS ORDERED: ONDANSETRON MDV (CANCER CENTER 8 MG, DEXAMETHASONE INJ (CANCER CTR) 4 MG in NS (IVPB) C... IV ONE (14:41)
== END 2019-08-10 | disposition home or self-care (01) ==
LOC: ONC 13:40
PROVIDERS: ATTEND Internal Medicine Hematology & Oncology
DX: Z51.11 Encounter for antineoplastic chemotherapy (principal); C25.0 Malignant neoplasm of head of pancreas; D70.1 Agranulocytosis secondary to cancer chemotherapy; E03.9 Hypothyroidism, unspecified; I10 Essential (primary) hypertension; M32.9 Systemic lupus erythematosus, unspecified; Z79.899 Other long term (current) drug therapy; Z90.49 Acquired absence of other specified parts of digestive tract
CPT/HCPCS: 36430; 36591; 80048; 80053; 82274; 82728; 83735; 84443; 85025; 86301; 86850; 86900; 86901; 86920; 96360; 96367; 96372; 96375; 96377; 96413; 96416; 96417; 99213; J2505

== ENCOUNTER 2019-08-18 10:06 | Day surgery (SDC) | payer BC ==
[~2019-08-18] VITALS: Ht 175 cm; Wt 80.9 kg
[2019-08-18] VITALS (7 sets, daily range): BP systolic 102–129; BP diastolic 71–82
[~2019-08-18 10:06] MED LIST changes: -ATROPINE INJ 0.4 MG/ML SDV (CANCER CENTER) INJ SCH; -CTR IV SCH; -D5W IV SCH; -FILGRASTIM 480 MCG/1.6 ML VIAL CANCER CENTER SQ SCH; -FOSAPREPITANT DIMEGLUMINE 150 MG in NS (IVPB) CANCER CENTER ONLY 150 ML IV SCH; -GEMCITABINE HCL 1 GM, GEMCITABINE HCL 200 MG in NS (IVPB) CANCER CENTER 100 ML IV SCH; -GEMCITABINE HCL 1 GM, GEMCITABINE HCL 300 MG in NS (IVPB) CANCER CENTER 100 ML IV SCH; -IRINOTECAN LIPOSOMAL IV SCH; -LEUCOVORIN CALCIUM 500 MG, LEUCOVORIN CALCIUM 100 MG in D5W 250 ML IVPB (CANCER CTR) 25... IV SCH; -NS IV 1000 ML (CANCER CTR) IV SCH; -NS IV 500 ML (CANCER CENTER) 500 ML ONE; -PACLITAXEL PROTEIN IV SCH; -PACLitaxel PROTEIN 130 MG in EMPTY IV BAG (PVC) CANCER CTR 1 EA IV SCH; -PALONOSETRON HCL 0.25 MG, DEXAMETHASONE INJECTION 10 MG in NS (IVPB) CANCER CENTER 50 ML IV SCH; -PEGFILGRASTIM 6 MG/0.6 ML ONPRO KIT SQ SCH; -PEGFILGRASTIM 6 MG/0.6ML NEULASTA SC SCH; -morphine INJ 4 MG/ML 1 ML (CANCER CTR) IV PRN
--- OUTSIDE RECORDS SUMMARY | 2019-08-18 10:31 | XMS REPORT | Continuity of Care Document ---
Author Organization Unknown Address Unknown Phone Unavailable Allergies Active Description Code Type Severity Reaction Onset Reported/Identified Relationship to Patient Clinical Status Yes No Known Drug Allergies [id number] Drug Allergy Unknown N/A 03/27/2017 Medications There [...] MALIGNANT NEOPLASM OF HEAD OF PANCREAS 03/30/2017 LSIY RUIZ N Ot I10 ESSENTIAL (PRIMARY) [...] MALIGNANT NEOPLASM OF HEAD OF PANCREAS 06/02/2017 LISY RUIZ N Ot I10 ESSENTIAL (PRIMARY) [...] MALIGNANT NEOPLASM OF HEAD OF PANCREAS 06/02/2017 LISY RUIZ N Ot I10 ESSENTIAL (PRIMARY) [...] N Ot I10 ESSENTIAL (PRIMARY) HYPERTENSION 07/28/2017 LISY RUIZ N Ot M32.9 SYSTEMIC LUPUS ERYTHEMATOSUS, UNSPECIFIE 08/11/2017 LISY RUIZ N Ot C25.9 MALIGNANT NEOPLASM OF PANCREAS, UNSPECIF 08/11/2017 LISY RUIZ N Ot K76.0 FATTY (CHANGE OF) LIVER, NOT ELSEWHERE C 08/11/2017 LISY RUIZ N Ot Z90.89 ACQUIRED ABSENCE OF OTHER ORGANS 08/11/2017 LISY RUIZ N Ot Z98.890 OTHER SPECIFIED POSTPROCEDURAL STATES 08/18/2017 SLY BOURGEOIS, MARY Ot C25. 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 08/31/2017 SARA, LISY N Ot 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 08/31/2017 LISY RUIZ N Ot I10 ESSENTIAL (PRIMARY) HYPERTENSION 08/31/2017 SARALISY N Ot M32.9 SYSTEMIC LUPUS ERYTHEMATOSUS, UNSPECIFIE 09/01/2017 LISY RUIZ N Ot 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 09/01/2017 LISY RUIZ N Ot I10 ESSENTIAL (PRIMARY) HYPERTENSION 09/01/2017 SARALISY N Ot M32.9 SYSTEMIC LUPUS ERYTHEMATOSUS, UNSPECIFIE 09/04/2017 SARALISY WILHELM N Ot 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 09/04/2017 SARA, BOBELLIOT N Ot I10 ESSENTIAL (PRIMARY) HYPERTENSION 09/04/2017 SARALISY N Ot M32.9 SYSTEMIC LUPUS ERYTHEMATOSUS, UNSPECIFIE 09/06/2017 ADI RUIZELLIOT N Ot 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 09/06/2017 SARALISY WILHELM N Ot I10 ESSENTIAL (PRIMARY) HYPERTENSION 09/06/2017 SARALISY N Ot M32.9 SYSTEMIC LUPUS ERYTHEMATOSUS, UNSPECIFIE 09/09/2017 SARALISY N Ot 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 09/09/2017 SARA, BOBAN N Ot I10 ESSENTIAL (PRIMARY) HYPERTENSION 09/09/2017 LISY RUIZ N Ot M32.9 SYSTEMIC LUPUS ERYTHEMATOSUS, UNSPECIFIE 09/18/2017 ANKIT SEALS M32.9 Systemic lupus erythematosus, unspecified 09/18/2017 LATINIS, ANKIT L93.0 Discoid lupus erythematosus 09/18/2017 LATINIS, ANKIT L93.0 Discoid lupus erythematosus 09/18/2017 LATINIS, ANKIT M32.9 Systemic lupus erythematosus, unspecified 10/13/2017 LISY RUIZ N Ot 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 10/13/2017 LISY RUIZ N Ot J90 PLEURAL EFFUSION, NOT ELSEWHERE CLASSIFI 10/13/2017 LISY RUIZ N Ot K76.0 FATTY (CHANGE OF) LIVER, NOT ELSEWHERE C 12/06/2017 LISY RUIZ N Ot 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 12/06/2017 LISY RUIZ N Ot D61.818 OTHER PANCYTOPENIA 12/06/2017 SARALISY WILHELM N Ot I10 ESSENTIAL (PRIMARY) HYPERTENSION 12/06/2017 LISY RUIZ N Ot M32.9 SYSTEMIC LUPUS ERYTHEMATOSUS, UNSPECIFIE 12/06/2017 LISY RUIZ N Ot R94.5 ABNORMAL RESULTS OF LIVER FUNCTION STUDI 12/06/2017 LISY RUIZ N Ot Z79.899 OTHER SENIOR LIVING (CURRENT) DRUG THERAPY 12/07/2017 LISY RUIZ N Ot 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 12/07/2017 LISY RUIZ N Ot D61.818 OTHER PANCYTOPENIA 12/07/2017 LISY RUIZ N Ot I10 ESSENTIAL (PRIMARY) HYPERTENSION 12/07/2017 LISY RUIZ N Ot M32.9 SYSTEMIC LUPUS ERYTHEMATOSUS, UNSPECIFIE 12/07/2017 ILSY RUIZ N Ot R94.5 ABNORMAL RESULTS OF LIVER FUNCTION STUDI 12/07/2017 LISY RUIZ N Ot Z79.899 OTHER SENIOR LIVING (CURRENT) DRUG THERAPY 01/14/2018 LISY RUIZ N Ot 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 01/14/2018 LISY RUIZ N Ot J90 PLEURAL EFFUSION, NOT ELSEWHERE CLASSIFI 01/14/2018 SARA ADIELLIOT N Ot R18.8 OTHER ASCITES 01/14/2018 SARA ADIELLIOT N Ot Z90.49 ACQUIRED ABSENCE OF OTHER SPECIFIED PART 01/14/2018 LISY RUIZ N Ot 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 01/14/2018 LISY RUIZ N Ot I10 ESSENTIAL (PRIMARY) HYPERTENSION 01/14/2018 LISY RUIZ N Ot M32.9 SYSTEMIC LUPUS ERYTHEMATOSUS, UNSPECIFIE 02/07/2018 SARALISY N Ot 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 02/07/2018 LISY RUIZ N Ot I10 ESSENTIAL (PRIMARY) HYPERTENSION 02/07/2018 LISY RUIZ N Ot M32.9 SYSTEMIC LUPUS ERYTHEMATOSUS, UNSPECIFIE 02/07/2018 SARALISY N Ot Z79.899 OTHER SENIOR LIVING (CURRENT) DRUG THERAPY 06/09/2018 SARALISY WILHELM N Ot 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 06/09/2018 SARALISY WILHELM N Ot I10 ESSENTIAL (PRIMARY) HYPERTENSION 06/09/2018 LISY RUIZ N Ot M32.9 SYSTEMIC LUPUS ERYTHEMATOSUS, UNSPECIFIE 06/09/2018 SARALISY WILHELM N Ot Z79.899 OTHER SENIOR LIVING (CURRENT) DRUG THERAPY 06/09/2018 LISY RUIZ N Ot Z90.49 ACQUIRED ABSENCE OF OTHER SPECIFIED PART 06/10/2018 LISY RUIZ N Ot 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 06/10/2018 SARALISY WILHELM N Ot I10 ESSENTIAL (PRIMARY) HYPERTENSION 06/10/2018 LISY RUIZ N Ot M32.9 SYSTEMIC LUPUS ERYTHEMATOSUS, UNSPECIFIE 06/10/2018 LISY RUIZ N Ot Z79.899 OTHER MANAGER GRANT (CURRENT) DRUG THERAPY 06/10/2018 LISY RUIZ N Ot Z90.49 ACQUIRED ABSENCE OF OTHER SPECIFIED PART 07/12/2018 SARALISY WILHELM N Ot C25.9 MALIGNANT NEOPLASM OF PANCREAS, UNSPECIF 07/12/2018 SARALISY N Ot Z98.890 OTHER SPECIFIED POSTPROCEDURAL STATES 07/12/2018 SARALISY N Ot C25.9 MALIGNANT NEOPLASM OF PANCREAS, UNSPECIF 07/12/2018 SARALISY N Ot K76.0 FATTY (CHANGE OF) LIVER, NOT ELSEWHERE C 07/12/2018 SARAADIAN N Ot Z90.89 ACQUIRED ABSENCE OF OTHER ORGANS 07/12/2018 SARA ADIAN N Ot Z98.890 OTHER SPECIFIED POSTPROCEDURAL STATES 07/12/2018 SLY BOURGEOIS, MARY Ot C25. 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 07/12/2018 SARA, ADIELLIOT N Ot 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 07/12/2018 SARA ADIELLIOT N Ot J90 PLEURAL EFFUSION, NOT ELSEWHERE CLASSIFI 07/12/2018 LISY RUIZ N Ot K76.0 FATTY (CHANGE OF) LIVER, NOT ELSEWHERE C 07/12/2018 SARALISY WILHELM N Ot 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 [...] 07/12/2018 LISY RUIZ N Ot Z79.899 OTHER MANAGER GRANT (CURRENT) DRUG THERAPY 07/12/2018 LISY RUIZ N [...] POSTPROCEDURAL STATES 07/12/2018 SLY BOURGEOIS, MARY Ot C25. 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 07/12/2018 SARA ADIELLIOT N Ot 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 07/12/2018 SARA ADIELLIOT N Ot J90 PLEURAL EFFUSION, NOT ELSEWHERE CLASSIFI 07/12/2018 SARALISY WILHELM N Ot K76.0 FATTY (CHANGE [...] 07/12/2018 LISY RUIZ N Ot Z79.899 OTHER SENIOR LIVING (CURRENT) DRUG THERAPY 07/12/2018 LISY RUIZ N Ot Z90.49 ACQUIRED ABSENCE OF OTHER SPECIFIED PART 07/13/2018 LISY RUIZ N Ot 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 07/13/2018 LISY RUIZ N Ot I10 ESSENTIAL (PRIMARY) HYPERTENSION 07/13/2018 LISY RUIZ N Ot M32.9 SYSTEMIC LUPUS ERYTHEMATOSUS, UNSPECIFIE 07/13/2018 LISY RUIZ N Ot Z79.899 OTHER MANAGER [employer] (CURRENT) DRUG THERAPY 07/13/2018 LISY RUIZ N [...] Z90.89 ACQUIRED ABSENCE OF OTHER ORGANS 07/15/2018 LISY RUIZ N Ot Z98.890 OTHER SPECIFIED POSTPROCEDURAL STATES 07/15/2018 SLY BOURGEOIS, MARY Ot C25. 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 07/15/2018 SARA LISY N Ot 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 07/15/2018 LISY RUIZ Ot J90 PLEURAL EFFUSION, NOT ELSEWHERE CLASSIFI 07/15/2018 LISY RUIZ Ot K76.0 FATTY (CHANGE OF) LIVER, NOT ELSEWHERE C 07/15/2018 LISY RUIZ N Ot 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 07/15/2018 LISY RUIZ Rona Ot J90 PLEURAL EFFUSION, NOT ELSEWHERE CLASSIFI 07/15/2018 LISY RUIZ Rona Ot R18.8 OTHER ASCITES 07/15/2018 LISY RUIZ N Ot Z90.49 ACQUIRED ABSENCE OF OTHER SPECIFIED PART 07/15/2018 LISY RUIZ N Ot 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 07/15/2018 LISY RUIZ Rona Ot D70.1 AGRANULOCYTOSIS SECONDARY TO CANCER CHEM 07/15/2018 LISY RUIZ Rona Ot E03.9 HYPOTHYROIDISM, UNSPECIFIED 07/15/2018 LISY RUIZ Rona Ot I10 ESSENTIAL (PRIMARY) HYPERTENSION 07/15/2018 LISY RUIZ Rona Ot M32.9 SYSTEMIC LUPUS ERYTHEMATOSUS, UNSPECIFIE 07/15/2018 LISY RUIZ N Ot Z79.899 OTHER SENIOR LIVING (CURRENT) DRUG THERAPY 07/15/2018 LISY RUIZ Rona Ot Z90.49 ACQUIRED ABSENCE OF OTHER SPECIFIED PART 07/22/2018 LISY RUIZ Rona Ot 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 07/22/2018 LISY RUIZ N Ot Z90.49 ACQUIRED ABSENCE OF OTHER SPECIFIED PART 07/22/2018 LISY RUIZ Rona Ot Z98.890 OTHER SPECIFIED POSTPROCEDURAL STATES 08/16/2018 LISY RUIZ Rona Ot 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 08/16/2018 LISY RUIZ N Ot Z90.49 ACQUIRED ABSENCE OF OTHER SPECIFIED PART 08/16/2018 LISY RUIZ N Ot Z98.890 OTHER SPECIFIED POSTPROCEDURAL STATES 08/30/2018 LISY RUIZ Rona Ot 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 08/30/2018 LISY RUIZ N Ot D70.1 AGRANULOCYTOSIS SECONDARY TO CANCER CHEM 08/30/2018 LISY RUIZ N Ot E03.9 HYPOTHYROIDISM, UNSPECIFIED 08/30/2018 ADI RUIZAN N Ot I10 ESSENTIAL (PRIMARY) HYPERTENSION 08/30/2018 SARALISY N Ot M32.9 SYSTEMIC LUPUS ERYTHEMATOSUS, UNSPECIFIE 08/30/2018 LISY RUIZ N Ot Z79.899 OTHER MANAGER [employer] (CURRENT) DRUG THERAPY 08/30/2018 SARALISY N Ot Z90.49 ACQUIRED ABSENCE OF OTHER SPECIFIED PART 09/17/2018 LATINIS, ANKIT [id number] 06 Lupus 09/17/2018 LATINIS, ANKIT L93.0 Discoid lupus erythematosus 09/17/2018 LATINIS, ANKIT L93.0 Discoid lupus erythematosus 10/01/2018 LATINIS, ANKIT [id number] 06 Lupus 10/01/2018 LATINIS, ANKIT L93.0 Discoid lupus erythematosus 10/01/2018 LATINIS, ANKIT L93.0 Discoid lupus erythematosus 10/01/2018 LATINIS, ANKIT R82.90 Unspecified abnormal findings in urine 10/10/2018 LISY RUIZ N Ot 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 10/10/2018 SARALISY N Ot D70.1 AGRANULOCYTOSIS SECONDARY TO CANCER CHEM 10/10/2018 SARALISY N Ot E03.9 HYPOTHYROIDISM, UNSPECIFIED 10/10/2018 SARALISY N Ot I10 ESSENTIAL (PRIMARY) HYPERTENSION 10/10/2018 LISY RUIZ N Ot M32.9 SYSTEMIC LUPUS ERYTHEMATOSUS, UNSPECIFIE 10/10/2018 SARALISY N Ot Z79.899 OTHER SENIOR LIVING (CURRENT) DRUG THERAPY 10/10/2018 LISY RUIZ N Ot Z90.49 ACQUIRED ABSENCE OF OTHER SPECIFIED PART 10/12/2018 SARALISY N Ot 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 10/12/2018 SARALISY N Ot D70.1 AGRANULOCYTOSIS SECONDARY TO CANCER CHEM 10/12/2018 SARALISY N Ot E03.9 HYPOTHYROIDISM, UNSPECIFIED 10/12/2018 SARA BOBELLIOT N Ot I10 ESSENTIAL (PRIMARY) HYPERTENSION 10/12/2018 SARALISY WILHELM N Ot M32.9 SYSTEMIC LUPUS ERYTHEMATOSUS, UNSPECIFIE 10/12/2018 SARALISY N Ot Z79.899 OTHER SENIOR LIVING (CURRENT) DRUG THERAPY 10/12/2018 LISY RUIZ N Ot Z90.49 ACQUIRED ABSENCE OF OTHER SPECIFIED PART 10/13/2018 LISY RUIZ N Ot 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 10/13/2018 LISY RUIZ N Ot D70.1 AGRANULOCYTOSIS SECONDARY TO CANCER CHEM 10/13/2018 LISY RUIZ Ot E03.9 HYPOTHYROIDISM, UNSPECIFIED 10/13/2018 LISY RUIZ N Ot I10 ESSENTIAL (PRIMARY) HYPERTENSION 10/13/2018 LISY RUIZ N Ot M32.9 SYSTEMIC LUPUS ERYTHEMATOSUS, UNSPECIFIE 10/13/2018 LISY RUIZ N Ot Z79.899 OTHER MANAGER GRANT (CURRENT) DRUG THERAPY 10/13/2018 LISY RUIZ N [...] POSTPROCEDURAL STATES 10/19/2018 SLY BOURGEOIS, MARY Ot C25. 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 10/19/2018 LISY RUIZ N Ot 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 10/19/2018 LISY RUIZ N Ot J90 PLEURAL EFFUSION, NOT ELSEWHERE CLASSIFI 10/19/2018 LISY RUIZ N Ot K76.0 FATTY (CHANGE OF) LIVER, NOT ELSEWHERE C 10/19/2018 LISY RUIZ N Ot 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 10/19/2018 LISY RUIZ N Ot J90 PLEURAL EFFUSION, NOT ELSEWHERE CLASSIFI 10/19/2018 LISY RUIZ N Ot R18.8 OTHER ASCITES 10/19/2018 LISY RUIZ N Ot Z90.49 ACQUIRED ABSENCE OF OTHER SPECIFIED PART 10/19/2018 LISY RUIZ Ot 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 10/19/2018 LISY RUIZ Ot Z90.49 ACQUIRED ABSENCE OF OTHER SPECIFIED PART 10/19/2018 LISY RUIZ Ot Z98.890 OTHER SPECIFIED POSTPROCEDURAL STATES 10/19/2018 LISY RUIZ Ot 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 10/19/2018 LISY RUIZ Ot D70.1 AGRANULOCYTOSIS SECONDARY TO CANCER CHEM 10/19/2018 LISY RUIZ Ot E03.9 HYPOTHYROIDISM, UNSPECIFIED 10/19/2018 LISY RUIZ Ot I10 ESSENTIAL (PRIMARY) HYPERTENSION 10/19/2018 LISY RUIZ Ot M32.9 SYSTEMIC LUPUS ERYTHEMATOSUS, UNSPECIFIE 10/19/2018 LISY RUIZ Ot Z79.899 OTHER SENIOR LIVING (CURRENT) DRUG THERAPY 10/19/2018 LISY RUIZ Ot Z90.49 ACQUIRED ABSENCE OF OTHER SPECIFIED PART 10/21/2018 MARIA ESTHER GAMEZ TANK SETTER Ot 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 10/21/2018 MARIA ESTHER GAMEZ TANK SETTER Ot M54.9 DORSALGIA, UNSPECIFIED 10/21/2018 MARIA ESTHER GAMEZ TANK SETTER Ot Z01.89 ENCOUNTER FOR OTHER SPECIFIED SPECIAL EX 10/25/2018 MARIA ESTHER GAMEZ TANK SETTER Ot 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 10/25/2018 MARIA ESTHER GAMEZ TANK SETTER Ot M54.9 DORSALGIA, UNSPECIFIED 10/25/2018 GAMEZMARIA ESTHER Colón TANK SETTER Ot Z01.89 ENCOUNTER FOR OTHER SPECIFIED SPECIAL EX 11/09/2018 DANITA CANELA R69 Illness, unspecified 12/05/2018 GELACIO BOURGEOIS, MARKELL Cormier Ot D72.819 DECREASED WHITE BLOOD CELL COUNT, UNSPEC 12/05/2018 GELACIO BOURGEOIS, MARKELL Cormier Ot E87.6 HYPOKALEMIA 12/05/2018 GELACIO BOURGEOIS, MARKELL Cormier Ot G89.3 NEOPLASM RELATED PAIN (ACUTE) (CHRONIC) 12/05/2018 MARKELL BRIZUELA MD Ot M32.9 SYSTEMIC LUPUS ERYTHEMATOSUS, UNSPECIFIE 12/05/2018 BRUEGGEMANN MD, MARKELL T Ot R10.84 GENERALIZED ABDOMINAL PAIN 12/05/2018 MARKELL BRIZUELA MD Ot R11.2 NAUSEA WITH VOMITING, UNSPECIFIED 12/05/2018 MARKELL BRIZUELA MD Ot R51 HEADACHE 12/05/2018 MARKELL BRIZUELA MD Ot Z85.07 PERSONAL HISTORY OF MALIGNANT NEOPLASM O 12/05/2018 MARKELL BRIZUELA MD Ot Z86.69 PERSONAL HISTORY OF DIS OF THE NERVOUS S 12/05/2018 MARKELL BRIZUELA MD Ot Z90.710 ACQUIRED ABSENCE OF BOTH CERVIX AND UTER 12/08/2018 MARKELL BRIZUELA MD Ot D72.819 DECREASED WHITE BLOOD CELL COUNT, UNSPEC 12/08/2018 MARKELL BRIZUELA MD Ot E87.6 HYPOKALEMIA 12/08/2018 MARKELL BRIZUELA MD Ot G89.3 NEOPLASM RELATED PAIN (ACUTE) (CHRONIC) 12/08/2018 MARKELL BRIZUELA MD Ot M32.9 SYSTEMIC LUPUS ERYTHEMATOSUS, UNSPECIFIE 12/08/2018 MARKELL BRIZUELA MD Ot R10.84 GENERALIZED ABDOMINAL PAIN 12/08/2018 MARKELL BRIZUELA MD Ot R11.2 NAUSEA WITH VOMITING, UNSPECIFIED 12/08/2018 MARKELL BRIZUELA MD Ot R51 HEADACHE 12/08/2018 MARKELL BRIZUELA MD, Ot Z85.07 PERSONAL HISTORY OF MALIGNANT NEOPLASM O 12/08/2018 MARKELL BRIZUELA MD, Ot Z86.69 PERSONAL HISTORY OF DIS OF THE NERVOUS S 12/08/2018 MARKELL BRIZUELA MD Ot Z90.710 ACQUIRED ABSENCE OF BOTH CERVIX AND UTER 12/30/2018 LISY RUIZ Ot 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 12/30/2018 LISY RUIZ Ot D70.1 AGRANULOCYTOSIS SECONDARY TO CANCER CHEM 12/30/2018 LISY RUIZ Ot E03.9 HYPOTHYROIDISM, UNSPECIFIED 12/30/2018 LISY RUIZ Ot I10 ESSENTIAL (PRIMARY) HYPERTENSION 12/30/2018 LISY RUIZ Ot M32.9 SYSTEMIC LUPUS ERYTHEMATOSUS, UNSPECIFIE 12/30/2018 ADI RUIZAN N Ot Z79.899 OTHER SENIOR LIVING (CURRENT) DRUG THERAPY 12/30/2018 SARAADIAN N Ot Z90.49 ACQUIRED ABSENCE OF OTHER SPECIFIED PART 12/31/2018 ANKIT SEALS [id number] Lupus 01/10/2019 SARA LISY N Ot 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 01/10/2019 SARA ADIAN N Ot D70.1 AGRANULOCYTOSIS SECONDARY TO CANCER CHEM 01/10/2019 SARA BOBAN N Ot E03.9 HYPOTHYROIDISM, UNSPECIFIED 01/10/2019 SARA, BOBAN N Ot I10 ESSENTIAL (PRIMARY) HYPERTENSION 01/10/2019 SARA BOBAN N Ot M32.9 SYSTEMIC LUPUS ERYTHEMATOSUS, UNSPECIFIE 01/10/2019 SARA BOBAN N Ot Z79.899 OTHER SENIOR LIVING (CURRENT) DRUG THERAPY 01/10/2019 SARA BOBAN N Ot Z90.49 ACQUIRED ABSENCE OF OTHER SPECIFIED PART 01/11/2019 SARA BOBELLIOT N Ot 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 01/11/2019 SARA BOBELLIOT N Ot D70.1 AGRANULOCYTOSIS SECONDARY TO CANCER CHEM 01/11/2019 SARA, BOBAN N Ot E03.9 HYPOTHYROIDISM, UNSPECIFIED 01/11/2019 SARA, BOBAN N Ot I10 ESSENTIAL (PRIMARY) HYPERTENSION 01/11/2019 SARA BOBAN N Ot M32.9 SYSTEMIC LUPUS ERYTHEMATOSUS, UNSPECIFIE 01/11/2019 SARA BOBAN N Ot Z79.899 OTHER SENIOR LIVING (CURRENT) DRUG THERAPY 01/11/2019 SARALISY N Ot Z90.49 ACQUIRED ABSENCE OF OTHER SPECIFIED PART 02/03/2019 MARIA ESTHER GAMEZ TANK SETTER Ot C25.9 MALIGNANT NEOPLASM OF PANCREAS, UNSPECIF 02/03/2019 MARIA ESTHER GAMEZ TANK SETTER Ot E 41 NUTRITIONAL MARASMUS 02/03/2019 MARIA ESTHER GAMEZ TANK SETTER Ot M54.9 DORSALGIA, UNSPECIFIED 02/03/2019 MARIA ESTHER GAMEZ TANK SETTER Ot R11.0 NAUSEA 02/03/2019 MARIA ESTHER GAMEZP Ot Z01.89 ENCOUNTER FOR OTHER SPECIFIED SPECIAL EX 02/04/2019 PARTH COPELAND DO Ot Z01.8 18 ENCOUNTER FOR OTHER PREPROCEDURAL EXAMIN 02/06/2019 LISY RUIZ Rona Ot 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 02/06/2019 SARA ADIELLIOT Rona Ot K66.8 OTHER SPECIFIED DISORDERS OF PERITONEUM 02/06/2019 SARA LISY Rea Ot Z90.49 ACQUIRED ABSENCE OF OTHER SPECIFIED PART 02/06/2019 SARA ADIELLIOT Rona Ot Z98.890 OTHER SPECIFIED POSTPROCEDURAL STATES 02/07/2019 DELMAN DO, PARTH B Ot Z01.8 18 ENCOUNTER FOR OTHER PREPROCEDURAL EXAMIN 02/07/2019 DELMAN DO, PARTH B Ot C25.9 MALIGNANT NEOPLASM OF PANCREAS, UNSPECIF 02/07/2019 DELMAN DO, PARTH B Ot E27.4 0 UNSPECIFIED ADRENOCORTICAL INSUFFICIENCY 02/07/2019 DELMAN DO, PARTH B Ot I87.2 VENOUS INSUFFICIENCY (CHRONIC) (PERIPHER 02/07/2019 DELMAN DO, PARTH B Ot Z79.8 99 OTHER SENIOR LIVING (CURRENT) DRUG THERAPY 02/07/2019 DELMAN DO, PARTH B Ot Z90.4 9 ACQUIRED ABSENCE OF OTHER SPECIFIED PART 02/07/2019 DELMAN DO, PARTH B Ot Z90.7 10 ACQUIRED ABSENCE OF BOTH CERVIX AND UTER 02/10/2019 SARA ADIELLIOT Rona Ot 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 02/10/2019 SARALISY Ot D70.1 AGRANULOCYTOSIS SECONDARY TO CANCER CHEM 02/10/2019 SARAADIELLIOT Rona Ot E03.9 HYPOTHYROIDISM, UNSPECIFIED 02/10/2019 LISY RUIZ Ot I10 ESSENTIAL (PRIMARY) HYPERTENSION 02/10/2019 LISY RUIZ Ot M32.9 SYSTEMIC LUPUS ERYTHEMATOSUS, UNSPECIFIE 02/10/2019 SARALISY Ot Z79.899 OTHER SENIOR LIVING (CURRENT) DRUG THERAPY 02/10/2019 LISY RUIZ Ot Z90.49 ACQUIRED ABSENCE OF OTHER SPECIFIED PART 02/16/2019 DELMAN DO, PARTH B Ot C25.9 MALIGNANT NEOPLASM OF PANCREAS, UNSPECIF 02/16/2019 DELMAN DO, PARTH B Ot E27.4 0 UNSPECIFIED ADRENOCORTICAL INSUFFICIENCY 02/16/2019 DELMAN DO, PARTH B Ot I87.2 VENOUS INSUFFICIENCY (CHRONIC) (PERIPHER 02/16/2019 DELMAN DO, PARTH B Ot Z79.8 99 OTHER MANAGER GRANT (CURRENT) DRUG THERAPY 02/16/2019 PARTH COPELAND DO Ot Z90.4 9 ACQUIRED ABSENCE OF OTHER SPECIFIED PART 02/16/2019 TRACEY COPELAND DOIC B Ot Z90.7 10 ACQUIRED ABSENCE OF BOTH CERVIX AND UTER 02/16/2019 LISY RIUZ Ot 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 02/16/2019 LISY RUIZ Ot D70.1 AGRANULOCYTOSIS SECONDARY TO CANCER CHEM 02/16/2019 LISY RUIZ Ot E03.9 HYPOTHYROIDISM, UNSPECIFIED 02/16/2019 LISY RUIZ Ot I10 ESSENTIAL (PRIMARY) HYPERTENSION 02/16/2019 LISY RUIZ Ot M32.9 SYSTEMIC LUPUS ERYTHEMATOSUS, UNSPECIFIE 02/16/2019 LISY RUIZ Ot Z79.899 OTHER MANAGER GRANT (CURRENT) DRUG THERAPY 02/16/2019 LISY RUIZ Ot Z90.49 ACQUIRED ABSENCE OF OTHER SPECIFIED PART 02/17/2019 MARIA ESTHER GAMEZ TANK SETTER Ot C25.9 MALIGNANT NEOPLASM OF PANCREAS, UNSPECIF 02/17/2019 MARIA ESTHER GAMEZ TANK SETTER Ot E 41 NUTRITIONAL MARASMUS 02/17/2019 MARIA ESTHER GAMEZ TANK SETTER Ot M54.9 DORSALGIA, UNSPECIFIED 02/17/2019 MARIA ESTHER GAMEZ TANK SETTER Ot R11.0 NAUSEA 02/17/2019 MARIA ESTHER GAMEZ TANK SETTER Ot Z01.89 ENCOUNTER FOR OTHER SPECIFIED SPECIAL EX 02/17/2019 LISY RUIZ Ot 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 02/17/2019 LISY RUIZ Ot K66.8 OTHER SPECIFIED DISORDERS OF PERITONEUM 02/17/2019 LISY RUIZ Ot Z90.49 ACQUIRED ABSENCE OF OTHER SPECIFIED PART 02/17/2019 LISY RUIZ Ot Z98.890 OTHER SPECIFIED POSTPROCEDURAL STATES 02/18/2019 PARTH COPELAND DO Ot C25.9 MALIGNANT NEOPLASM OF PANCREAS, UNSPECIF 02/18/2019 TRACEY COPELAND DOIC B Ot E27.4 0 UNSPECIFIED ADRENOCORTICAL INSUFFICIENCY 02/18/2019 PARTH COPELAND DO Ot I87.2 VENOUS INSUFFICIENCY (CHRONIC) (PERIPHER 02/18/2019 DELMAN DO, PARTH B Ot Z79.8 99 OTHER SENIOR LIVING (CURRENT) DRUG THERAPY 02/18/2019 DELMERY DO, PARTH B Ot Z90.4 9 ACQUIRED ABSENCE OF OTHER SPECIFIED PART 02/18/2019 DELMAN DO, PARTH B Ot Z90.7 10 ACQUIRED ABSENCE OF BOTH CERVIX AND UTER 02/23/2019 SARA, BOBAN N Ot 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 02/23/2019 SARA, BOBAN N Ot D70.1 AGRANULOCYTOSIS SECONDARY TO CANCER CHEM 02/23/2019 SARA, BOBAN N Ot E03.9 HYPOTHYROIDISM, UNSPECIFIED 02/23/2019 SARA, BOBAN N Ot I10 ESSENTIAL (PRIMARY) HYPERTENSION 02/23/2019 SARA, BOBAN N Ot M32.9 SYSTEMIC LUPUS ERYTHEMATOSUS, UNSPECIFIE 02/23/2019 SARA, BOBAN N Ot Z79.899 OTHER SENIOR LIVING (CURRENT) DRUG THERAPY 02/23/2019 SARA, BOBAN N Ot Z90.49 ACQUIRED ABSENCE OF OTHER SPECIFIED PART 03/03/2019 SARA, BOBAN N Ot 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 03/03/2019 SARA, BOBAN N Ot D70.1 AGRANULOCYTOSIS SECONDARY TO CANCER CHEM 03/03/2019 SARA, BOBAN N Ot E03.9 HYPOTHYROIDISM, UNSPECIFIED 03/03/2019 SARA, BOBAN N Ot I10 ESSENTIAL (PRIMARY) HYPERTENSION 03/03/2019 SARA, BOBAN N Ot M32.9 SYSTEMIC LUPUS ERYTHEMATOSUS, UNSPECIFIE 03/03/2019 SARA, BOBAN N Ot Z79.899 OTHER SENIOR LIVING (CURRENT) DRUG THERAPY 03/03/2019 SARA, BOBAN N Ot Z90.49 ACQUIRED ABSENCE OF OTHER SPECIFIED PART 03/10/2019 SARA, BOBAN N Ot 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 03/10/2019 SARA, BOBAN N Ot D70.1 AGRANULOCYTOSIS SECONDARY TO CANCER CHEM 03/10/2019 SARA, BOBAN N Ot E03.9 HYPOTHYROIDISM, UNSPECIFIED 03/10/2019 SARA, BOBAN N Ot I10 ESSENTIAL (PRIMARY) HYPERTENSION 03/10/2019 SARA, BOBAN N Ot M32.9 SYSTEMIC LUPUS ERYTHEMATOSUS, UNSPECIFIE 03/10/2019 SARA, BOBAN N Ot Z79.899 OTHER SENIOR LIVING (CURRENT) DRUG THERAPY 03/10/2019 SARALISY Ot Z90.49 ACQUIRED ABSENCE OF OTHER SPECIFIED PART 03/18/2019 ANKIT SEALS [id number] Lupus 04/05/2019 JOHN BALBUENA MD, Ot A41. 9 SEPSIS, UNSPECIFIED ORGANISM 04/05/2019 JOHN BALBUENA MD, Ot C25. 9 MALIGNANT NEOPLASM OF PANCREAS, UNSPECIF 04/05/2019 JOHN BALBUENA MD, Ot D70. 9 NEUTROPENIA, UNSPECIFIED 04/05/2019 JOHN BALBUENA MD, Ot E03. 9 HYPOTHYROIDISM, UNSPECIFIED 04/05/2019 JOHN BALBUENA MD, Ot E27. 40 UNSPECIFIED ADRENOCORTICAL INSUFFICIENCY 04/05/2019 JOHN BALBUENA MD, Ot G43.909 MIGRAINE, UNSP, NOT INTRACTABLE, WITHOUT 04/05/2019 JOHN BALBUENA MD Ot R50. 81 FEVER PRESENTING WITH CONDITIONS CLASSIF 04/05/2019 JOHN BALBUENA MD Ot R63. 0 ANOREXIA 04/05/2019 JOHN BALBUENA MD Ot R65. 21 SEVERE SEPSIS WITH SEPTIC SHOCK 04/05/2019 JOHN BALBUENA MD Ot Z79. 52 SENIOR LIVING (CURRENT) USE OF SYSTEMIC STER 04/05/2019 JOHN BALBUENA MD, Ot Z90. 49 ACQUIRED ABSENCE OF OTHER SPECIFIED PART 04/05/2019 JOHN BALBUENA MD, Ot Z92. 21 PERSONAL HISTORY OF ANTINEOPLASTIC CHEMO 04/05/2019 JOHN BALBUENA MD, Ot Z92. 3 PERSONAL HISTORY OF IRRADIATION 04/06/2019 JOHN BALBUENA MD, Ot A41. 9 SEPSIS, UNSPECIFIED ORGANISM 04/06/2019 JOHN BALBUENA MD, Ot C25. 9 MALIGNANT NEOPLASM OF PANCREAS, UNSPECIF 04/06/2019 JOHN BALBUENA MD, Ot D70. 9 NEUTROPENIA, UNSPECIFIED 04/06/2019 JOHN BALBUENA MD Ot E03. 9 HYPOTHYROIDISM, UNSPECIFIED 04/06/2019 JOHN BALBUENA MD Ot E27. 40 UNSPECIFIED ADRENOCORTICAL INSUFFICIENCY 04/06/2019 JOHN BALBUENA MD, Ot G43.909 MIGRAINE, UNSP, NOT INTRACTABLE, WITHOUT 04/06/2019 JOHN BALBUENA MD Ot R50. 81 FEVER PRESENTING WITH CONDITIONS CLASSIF 04/06/2019 JOHN BALBUENA MD Ot R63. 0 ANOREXIA 04/06/2019 JOHN BALBUENA MD Ot R65. 21 SEVERE SEPSIS WITH SEPTIC SHOCK 04/06/2019 JOHN BALBUENA MD Ot Z79. 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 49 ACQUIRED ABSENCE OF OTHER SPECIFIED PART 04/06/2019 JOHN BALBUENA MD, Ot Z92. 21 PERSONAL HISTORY OF ANTINEOPLASTIC CHEMO 04/06/2019 JOHN BALBUENA MD, Ot Z92. 3 PERSONAL HISTORY OF IRRADIATION 04/06/2019 JOHN BALBUENA MD, Ot A41. 9 SEPSIS, UNSPECIFIED ORGANISM 04/06/2019 JOHN BALBUENA MD, Ot C25. 9 MALIGNANT NEOPLASM OF PANCREAS, UNSPECIF 04/06/2019 JOHN BALBUENA MD Ot D70. 9 NEUTROPENIA, UNSPECIFIED 04/06/2019 JOHN BALBUENA MD, Ot E03. 9 HYPOTHYROIDISM, UNSPECIFIED 04/06/2019 JOHN BALBUENA MD Ot E27. 40 UNSPECIFIED ADRENOCORTICAL INSUFFICIENCY 04/06/2019 JOHN BALBUENA MD Ot G43.909 MIGRAINE, UNSP, NOT INTRACTABLE, WITHOUT 04/06/2019 JOHN BALBUENA MD Ot R50. 81 FEVER PRESENTING WITH CONDITIONS CLASSIF 04/06/2019 JOHN BALBUENA MD Ot R63. 0 ANOREXIA 04/06/2019 JOHN BALBUENA MD Ot R65. 21 SEVERE SEPSIS WITH SEPTIC SHOCK 04/06/2019 JOHN BALBUENA MD, Ot Z79. 52 SENIOR LIVING (CURRENT) USE OF SYSTEMIC STER 04/06/2019 JOHN BALBUENA MD Ot Z90. 49 ACQUIRED ABSENCE OF OTHER SPECIFIED PART 04/06/2019 JOHN BALBUENA MD Ot Z92. 21 PERSONAL HISTORY OF ANTINEOPLASTIC CHEMO 04/06/2019 JOHN BALBUENA MD Ot Z92. 3 PERSONAL HISTORY OF IRRADIATION 04/06/2019 JOHN BALBUENA MD, Ot A41. 9 SEPSIS, UNSPECIFIED ORGANISM 04/06/2019 JOHN BALBUENA MD, Ot C25. 9 MALIGNANT NEOPLASM OF PANCREAS, UNSPECIF 04/06/2019 JOHN BALBUENA MD, Ot D70. 9 NEUTROPENIA, UNSPECIFIED 04/06/2019 JOHN BALBUENA MD, Ot E03. 9 HYPOTHYROIDISM, UNSPECIFIED 04/06/2019 JOHN BALBUENA MD, Ot E27. 40 UNSPECIFIED ADRENOCORTICAL INSUFFICIENCY 04/06/2019 JOHN BALBUENA MD, Ot G43.909 MIGRAINE, UNSP, NOT INTRACTABLE, WITHOUT 04/06/2019 JOHN BALBUENA MD, Ot R50. 81 FEVER PRESENTING WITH CONDITIONS CLASSIF 04/06/2019 JOHN BALBUENA MD Ot R63. 0 ANOREXIA 04/06/2019 JOHN BALBUENA MD, Ot R65. 21 SEVERE SEPSIS WITH SEPTIC SHOCK 04/06/2019 JOHN BALBUENA MD, Ot Z79. 52 SENIOR LIVING (CURRENT) USE OF SYSTEMIC STER 04/06/2019 JOHN BALBUENA MD Ot Z90. 49 ACQUIRED ABSENCE OF OTHER SPECIFIED PART 04/06/2019 JOHN BALBUENA MD, Ot Z92. 21 PERSONAL HISTORY OF ANTINEOPLASTIC CHEMO 04/06/2019 JOHN BLABUENA MD, Ot Z92. 3 PERSONAL HISTORY OF IRRADIATION 04/06/2019 JOHN BALBUENA MD, Ot A41. 51 SEPSIS DUE TO ESCHERICHIA COLI [E. COLI] 04/06/2019 JOHN BALBUENA MD, Ot A41. 9 SEPSIS, UNSPECIFIED ORGANISM 04/06/2019 JOHN BALBUENA MD, Ot C25. 9 MALIGNANT NEOPLASM OF PANCREAS, UNSPECIF 04/06/2019 JOHN BALBUENA MD, Ot D70. 9 NEUTROPENIA, UNSPECIFIED 04/06/2019 JOHN BALBUENA MD, Ot E03. 9 HYPOTHYROIDISM, UNSPECIFIED 04/06/2019 JOHN BALBUENA MD, Ot E27. 40 UNSPECIFIED ADRENOCORTICAL INSUFFICIENCY 04/06/2019 JOHN BALBUENA MD Ot E87. 2 ACIDOSIS 04/06/2019 JOHN BALBUENA MD, Ot E87. 6 HYPOKALEMIA 04/06/2019 JOHN BALBUENA MD, Ot G43.909 MIGRAINE, UNSP, NOT INTRACTABLE, WITHOUT 04/06/2019 JOHN BALBUENA MD, Ot I81 PORTAL VEIN THROMBOSIS 04/06/2019 JOHN BALBUENA MD, Ot J90 PLEURAL EFFUSION, NOT ELSEWHERE CLASSIFI 04/06/2019 JOHN BALBUENA MD, Ot K52. 89 OTHER SPECIFIED NONINFECTIVE GASTROENTER 04/06/2019 JOHN BALBUENA MD, Ot N39. 0 URINARY TRACT INFECTION, SITE NOT SPECIF 04/06/2019 JOHN BALBUENA MD, Ot R50. 81 FEVER PRESENTING WITH CONDITIONS CLASSIF 04/06/2019 JOHN BALBUENA MD, Ot R63. 0 ANOREXIA 04/06/2019 JOHN BALBUENA MD, Ot R65. 21 SEVERE SEPSIS WITH SEPTIC SHOCK 04/06/2019 JOHN BALBUENA MD, Ot Z16. 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 49 ACQUIRED ABSENCE OF OTHER SPECIFIED PART 04/06/2019 JOHN BALBUENA MD, Ot Z92. 21 PERSONAL HISTORY OF ANTINEOPLASTIC CHEMO 04/06/2019 JOHN BALBUENA MD, Ot Z92. 3 PERSONAL HISTORY OF IRRADIATION 05/03/2019 LISY RUIZ Ot 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 05/03/2019 LISY RUIZ Ot D70.1 AGRANULOCYTOSIS SECONDARY TO CANCER CHEM 05/03/2019 LISY RUIZ Ot E03.9 HYPOTHYROIDISM, UNSPECIFIED 05/03/2019 LISY RUIZ N Ot I10 ESSENTIAL (PRIMARY) HYPERTENSION 05/03/2019 LISY RUIZ Ot M32.9 SYSTEMIC LUPUS ERYTHEMATOSUS, UNSPECIFIE 05/03/2019 LISY RUIZ Ot Z79.899 OTHER SENIOR LIVING (CURRENT) DRUG THERAPY 05/03/2019 LISY RUIZ Ot Z90.49 ACQUIRED ABSENCE OF OTHER SPECIFIED PART 05/05/2019 LISY RUIZ Ot 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 05/05/2019 LISY RUIZ N Ot D70.1 AGRANULOCYTOSIS SECONDARY TO CANCER CHEM 05/05/2019 LISY RUIZ N Ot E03.9 HYPOTHYROIDISM, UNSPECIFIED 05/05/2019 LISY RUIZ N Ot I10 ESSENTIAL (PRIMARY) HYPERTENSION 05/05/2019 SARA, LISY N Ot M32.9 SYSTEMIC LUPUS ERYTHEMATOSUS, UNSPECIFIE 05/05/2019 SARALISY N Ot Z79.899 OTHER SENIOR LIVING (CURRENT) DRUG THERAPY 05/05/2019 SARALISY N Ot Z90.49 ACQUIRED ABSENCE OF OTHER SPECIFIED PART 05/13/2019 PARTH COPELAND DO Ot Z86.1 9 PERSONAL HISTORY OF OTHER INFECTIOUS AND 05/26/2019 MARIA ESTHER GAMEZ TANK SETTER Ot 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 05/26/2019 MARIA ESTHER G[employer]Z T[employer] SETTER Ot J 90 PLEURAL EFFUSION, NOT ELSEWHERE CLASSIFI 05/26/2019 MARIA ESTHER G[employer]Z TANK SETTER Ot R18.8 OTHER ASCITES 05/28/2019 MARIA ESTHER G[employer]Z T[employer] SETTER Ot 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 06/01/2019 LISY RUIZ N Ot 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 06/01/2019 LISY RUIZ Ot D70.1 AGRANULOCYTOSIS SECONDARY TO CANCER CHEM 06/01/2019 SARALISY N Ot E03.9 HYPOTHYROIDISM, UNSPECIFIED 06/01/2019 SARA BOBELLIOT N Ot I10 ESSENTIAL (PRIMARY) HYPERTENSION 06/01/2019 SARALISY N Ot M32.9 SYSTEMIC LUPUS ERYTHEMATOSUS, UNSPECIFIE 06/01/2019 SARALISY WILHELM N Ot Z79.899 OTHER SENIOR LIVING (CURRENT) DRUG THERAPY 06/01/2019 LISY RUIZ N Ot Z90.49 ACQUIRED ABSENCE OF OTHER SPECIFIED PART 06/01/2019 LISY RUIZ N Ot 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 06/01/2019 SARALISY N Ot D70.1 AGRANULOCYTOSIS SECONDARY TO CANCER CHEM 06/01/2019 SARALISY N Ot E03.9 HYPOTHYROIDISM, UNSPECIFIED 06/01/2019 SARA BOBELLIOT N Ot I10 ESSENTIAL (PRIMARY) HYPERTENSION 06/01/2019 SARA BOBELLIOT N Ot M32.9 SYSTEMIC LUPUS ERYTHEMATOSUS, UNSPECIFIE 06/01/2019 SARALISY N Ot Z79.899 OTHER MANAGER [employer] (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) DRUG THERAPY 06/01/2019 LISY RUIZ N Ot Z90.49 ACQUIRED ABSENCE OF OTHER SPECIFIED PART 06/10/2019 MARIA ESTHER GAMEZ T[employer] SETTER Ot 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 06/10/2019 GAMEZMARIA ESTHER Colón TANK SETTER Ot J 90 PLEURAL EFFUSION, NOT ELSEWHERE CLASSIFI 06/10/2019 MARIA ESTHER GAMEZ S TANK SETTER Ot R18.8 OTHER ASCITES 06/10/2019 MARIA ESTHER GAMEZ S TANK SETTER Ot 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 06/11/2019 MARIA ESTHER GAMEZ S TANK SETTER Ot 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 06/11/2019 MARIA ESTHER GAMEZ S TANK SETTER Ot 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 06/24/2019 LATINIS, ANKIT [id number] Lupus 06/24/2019 C25.0 Rama gnant neoplasm of head of pancreas 06/30/2019 GAMEZMARIA ESTHER Colón S TANK SETTER Ot 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 07/07/2019 SARALISY WILHELM N Ot 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 07/07/2019 LISY RUIZ N Ot D70.1 AGRANULOCYTOSIS SECONDARY TO CANCER CHEM 07/07/2019 SARAADIAN N Ot E03.9 HYPOTHYROIDISM, UNSPECIFIED 07/07/2019 SARA BOBAN N Ot I10 ESSENTIAL (PRIMARY) HYPERTENSION 07/07/2019 SARA BOBAN N Ot M32.9 SYSTEMIC LUPUS ERYTHEMATOSUS, UNSPECIFIE 07/07/2019 SARAADIAN N Ot Z79.899 OTHER MANAGER [employer] (CURRENT) DRUG THERAPY 07/07/2019 LISY RUIZ N Ot Z90.49 ACQUIRED ABSENCE OF OTHER SPECIFIED PART 07/12/2019 SARAADIAN N Ot 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 07/12/2019 LISY RUIZ N Ot D70.1 AGRANULOCYTOSIS SECONDARY TO CANCER CHEM 07/12/2019 SARAADIAN N Ot E03.9 HYPOTHYROIDISM, UNSPECIFIED 07/12/2019 SARA BOBAN N Ot I10 ESSENTIAL (PRIMARY) HYPERTENSION 07/12/2019 SARA BOBAN N Ot M32.9 SYSTEMIC LUPUS ERYTHEMATOSUS, UNSPECIFIE 07/12/2019 ADI RUIZAN N Ot Z79.899 OTHER MANAGER [employer] (CURRENT) DRUG THERAPY 07/12/2019 SARA BOBAN N Ot Z90.49 ACQUIRED ABSENCE OF OTHER SPECIFIED PART 07/14/2019 MARIA ESTHER GAMEZ T[employer] SETTER Ot 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 07/25/2019 SARA, BOBAN N Ot C25.9 MALIGNANT NEOPLASM OF PANCREAS, UNSPECIF 07/25/2019 SARA, BOBAN N Ot 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 07/25/2019 SARA, BOBAN N Ot D70.1 AGRANULOCYTOSIS SECONDARY TO CANCER CHEM 07/25/2019 SARA, BOBAN N Ot E03.9 HYPOTHYROIDISM, UNSPECIFIED 07/25/2019 SARA, BOBAN N Ot I10 ESSENTIAL (PRIMARY) HYPERTENSION 07/25/2019 SARA, BOBAN N Ot M32.9 SYSTEMIC LUPUS ERYTHEMATOSUS, UNSPECIFIE 07/25/2019 SARA, BOBAN N Ot Z79.899 OTHER MANAGER [employer] (CURRENT) DRUG THERAPY 07/25/2019 SARAADIAN N Ot Z90.49 ACQUIRED ABSENCE OF OTHER SPECIFIED PART 07/28/2019 MARIA ESTHER GAMEZ TANK SETTER Ot 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 07/28/2019 DELMAN DO, PARTH B Ot C25.9 MALIGNANT NEOPLASM OF PANCREAS, UNSPECIF 07/28/2019 DELMAN DO, PARTH B Ot R18.8 OTHER ASCITES 08/03/2019 DELMAN DO, PARTH B Ot R18.8 OTHER ASCITES 08/04/2019 SARA, BOBAN N Ot 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 08/04/2019 SARALISY N Ot D70.1 AGRANULOCYTOSIS SECONDARY TO CANCER CHEM 08/04/2019 SARA, BOBAN N Ot E03.9 HYPOTHYROIDISM, UNSPECIFIED 08/04/2019 SARA, BOBAN N Ot I10 ESSENTIAL (PRIMARY) HYPERTENSION 08/04/2019 SARA, ADIAN N Ot M32.9 SYSTEMIC LUPUS ERYTHEMATOSUS, UNSPECIFIE 08/04/2019 SARA BOBAN N Ot Z79.899 OTHER SENIOR LIVING (CURRENT) DRUG THERAPY 08/04/2019 SARA BOBAN N Ot Z90.49 ACQUIRED ABSENCE OF OTHER SPECIFIED PART 08/06/2019 SARA BOBAN N Ot 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 08/06/2019 DELMAN DO, PARTH B Ot R18.8 OTHER ASCITES 08/09/2019 SARA, BOBAN N Ot 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 08/10/2019 LISY RUIZ Ot 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 08/10/2019 LISY RUIZ N Ot D70.1 AGRANULOCYTOSIS SECONDARY TO CANCER CHEM 08/10/2019 LISY RUIZ N Ot E03.9 HYPOTHYROIDISM, UNSPECIFIED 08/10/2019 SARALISY N Ot I10 ESSENTIAL (PRIMARY) HYPERTENSION 08/10/2019 LISY RUIZ N Ot M32.9 SYSTEMIC LUPUS ERYTHEMATOSUS, UNSPECIFIE 08/10/2019 LISY RUIZ N Ot Z79.899 OTHER SENIOR LIVING (CURRENT) DRUG THERAPY 08/10/2019 LISY RUIZ N Ot Z90.49 ACQUIRED ABSENCE OF OTHER SPECIFIED PART 08/12/2019 LISY RUIZ Ot 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 08/12/2019 LISY RUIZ N Ot D70.1 AGRANULOCYTOSIS SECONDARY TO CANCER CHEM 08/12/2019 LISY RUIZ N Ot E03.9 HYPOTHYROIDISM, UNSPECIFIED 08/12/2019 LISY RUIZ N Ot I10 ESSENTIAL (PRIMARY) HYPERTENSION 08/12/2019 LISY RUIZ N Ot M32.9 SYSTEMIC LUPUS ERYTHEMATOSUS, UNSPECIFIE 08/12/2019 LISY RUIZ N Ot Z51.11 ENCOUNTER FOR ANTINEOPLASTIC CHEMOTHERAP 08/12/2019 LISY URIZ N Ot Z79.899 OTHER SENIOR LIVING (CURRENT) DRUG THERAPY 08/12/2019 LISY RUIZ N Ot Z90.49 ACQUIRED ABSENCE OF OTHER SPECIFIED PART Procedures Code Description Performed By Per formed On AVISE AVISE 09/17/2018 AVISE AVISE 09/17/2018 [id number] CB C AND DIFF (MANUAL DIFF IF NECESSARY) 09/17/2018 [id number] CO MPREHENSIVE METABOLIC PANEL 09/17/2018 [id number] UR INALYSIS (INCLUDES MICROSCOPIC REVIEW, IF INDICATED) 09/17/2018 [id number] CB C AND DIFF (MANUAL DIFF IF NECESSARY) 09/17/2018 [id number] CO MPREHENSIVE METABOLIC PANEL 09/17/2018 [id number] UR INALYSIS (INCLUDES MICROSCOPIC REVIEW, IF INDICATED) 09/17/2018 [id number] CB C AND DIFF (MANUAL DIFF IF NECESSARY) 10/01/2018 [id number] T4 FREE 10/01/2018 [id number] TH YROID STIMULATING HORMONE 10/01/2018 [id number] UR INALYSIS (INCLUDES MICROSCOPIC REVIEW, IF INDICATED) 10/01/2018 [id number] QU ANTIFERON TB GOLD PLUS 10/01/2018 [id number] CB C AND DIFF (MANUAL DIFF IF NECESSARY) 10/01/2018 [id number] T4 FREE 10/01/2018 [id number] TH YROID STIMULATING HORMONE 10/01/2018 [id number] QU ANTIFERON TB GOLD PLUS 10/01/2018 [id number] CU LTURE, URINE 10/01/2018 [id number] UR INALYSIS (INCLUDES MICROSCOPIC REVIEW, IF INDICATED) 10/01/2018 [id number] UR INALYSIS MICROSCOPIC ONLY 10/01/2018 [id number] IM MATURE PLATELET FRACTION 11/09/2018 AVISE AVISE 12/31/2018 [id number] CB C AND DIFF (MANUAL DIFF IF NECESSARY) 12/31/2018 [id number] CO MPREHENSIVE METABOLIC PANEL 12/31/2018 [id number] C- REACTIVE PROTEIN 12/31/2018 [id number] ER YTHROCYTE SEDIMENTATION RATE 12/31/2018 [id number] CB C AND DIFF (MANUAL DIFF IF NECESSARY) 12/31/2018 [id number] CO MPREHENSIVE METABOLIC PANEL 12/31/2018 [id number] C- REACTIVE PROTEIN 12/31/2018 [id number] ER YTHROCYTE SEDIMENTATION RATE 12/31/2018 [id number] C3 COMPLEMENT 06/24/2019 [id number] C4 COMPLEMENT 06/24/2019 [id number] DN A ANTIBODY 06/24/2019 [id number] UR INALYSIS (INCLUDES MICROSCOPIC REVIEW, IF INDICATED) 06/24/2019 [id number] CU LTURE, URINE 06/24/2019 [id number] UR INALYSIS (INCLUDES MICROSCOPIC REVIEW, IF INDICATED) 06/24/2019 [id number] UR INALYSIS MICROSCOPIC ONLY 06/24/2019 [id number] C3 COMPLEMENT 06/24/2019 [id number] C4 COMPLEMENT 06/24/2019 [id number] DN A ANTIBODY 06/24/2019 [id number] BA SIC METABOLIC PANEL 06/24/2019 [id number] CB C AND DIFF (MANUAL DIFF IF NECESSARY) 06/24/2019 Results Test Result Range COMPREHENSIVE METABOLIC PANEL - 09/17/18 15:17 Alanine Aminotransferase 24 0-34 Albumin 4.3 3.5-5.0 Alkaline Phosphatase 57 42-140 Aspartate Aminotransferase 39 15- 46 Blood Urea Nitrogen 10 7-26 Chloride 105 [...] Negative Negative SPECIFIC GRAVITY UA < TX 1.001-1.03 0 HEMOGLOBIN URINE Negative Negative PH URINE 5.5 [...] 1.5 0.8-2.2 THYROID STIMULATING HORMONE - 10/01/18 0 9:52 Thyroid Stimulating Hormone 8.77 0. 47-4.68 QUANTIFERON TB GOLD PLUS - 10/01/18 09:5 2 QFT INTERPRETATION Negative Negative URINALYSIS - 10/01/18 09:54 APPEARANCE, URINE Yellow NRG GLUCOSE URINE Negative Negative BILIRUBIN URINE Negative Negative KETONES URINE Negative Negative SPECIFIC GRAVITY UA 1.020 TX 1.001-1.03 0 HEMOGLOBIN URINE Small Negative PH URINE 5.5 TX 5.0-8.0 PROTEIN URINE QUAL Trace Negative UROBILINOGEN URINE Negative Negative NITRITE URINE Positive Negative LEUKOCYTE ESTERASE Positive Negative URINALYSIS MICROSCOPIC ONLY - 10/01/18 0 9:54 MICROSCOPIC RBC URINE 6 - 10 0-5 MICROSCOPIC WBC URINE >40 0-5 EPITHELIAL CELLS Small Absent HYALINE CAST Absent Absent BACTERIA Large Absent IMMATURE PLATELET FRACTION - 11/09/18 09 :35 Immature Platelet Fraction 2.8 1.1 -7.1 Complete blood count (CBC) with automate d white blood cell (WBC) differential - 12/05/18 07:48 Blood leukocytes automated count (number/volume) 2.6 10*3/uL 4.3-11.0 Blood erythrocytes automated count (number/volume) 4.23 10*6/uL 4.35-5.85 Venous blood hemoglobin measurement (mass/volume) 12.7 g/dL 11.5-16.0 Blood hematocrit (volume fraction) 39 % 35-52 Automated erythrocyte mean corpuscular volume 92 [ foz_us] 80-99 Automated erythrocyte mean corpuscular h emoglobin (mass per erythrocyte) 30 pg 25-34 Automated erythrocyte mean corpuscular h emoglobin concentration measurement (mass/volume) 33 g/dL 32-36 Automated erythrocyte distribution width ratio 14. 5 % 10.0- 14.5 Automated blood platelet count (count/volume) 133 10*3/uL 130-400 Automated blood platelet mean volume measurement 10.1 [foz_us] 7.4-10.4 Automated blood neutrophils/100 leukocytes 64 % 42-75 Automated blood lymphocytes/100 leukocytes 18 % 12-44 Blood monocytes/100 leukocytes 16 % 0-12 Automated blood eosinophils/100 leukocytes 1 % 0-10 Automated blood basophils/100 leukocytes 0 % 0-10 Blood neutrophils automated count (number/volume) 1.7 10*3 1.8-7.8 Blood lymphocytes automated count (number/volume) 0.5 10*3 1.0-4.0 Blood monocytes automated count (number/volume) 0. 4 10*3 0.0-1.0 Automated eosinophil count 0.0 10*3/uL 0 .0-0.3 Automated blood basophil count (count/volume) 0.0 10*3/uL 0.0-0.1 Complete urinalysis with reflex to cultu re - 12/05/18 07:48 Urine color determination YELLOW NRG Urine clarity determination CLEAR NR G Urine pH measurement by test strip 6.5 5-9 Specific gravity of urine by test strip 1.015 1.016-1.022 Urine protein assay by test strip, semi-quantitative NEGATIVE NEGATIVE Urine glucose detection by automated test strip NE GATIVE NEGATIVE Erythrocytes detection in urine sediment by light micr oscopy NEGATIVE NEGATIVE Urine ketones detection by automated test strip NE GATIVE NEGATIVE Urine nitrite detection by test strip NEGATIVE NEGATIVE Urine total bilirubin detection by test strip NEGA TIVE NEGATIVE Urine urobilinogen measurement by automated test strip (mass/volume) 1 mg/dL NORMAL Urine leukocyte esterase detection by dipstick NEG ATIVE NEGATIVE Automated urine sediment erythrocyte cou nt by microscopy (number/high power field) NONE NRG Automated urine sediment leukocyte count by microscopy (number/high power field) RARE NRG Bacteria detection in urine sediment by light microsco py TRACE NRG Squamous epithelial cells detection in u rine sediment by light microscopy 10-25 NRG Crystals detection in urine sediment by light microsco py NONE NRG Casts detection in urine sediment by light microscopy NONE NRG Mucus detection in urine sediment by light microscopy NEGATIVE NRG Complete urinalysis with reflex to culture NO NRG Comprehensive metabolic panel - 12/05/18 07:48 Serum or plasma sodium measurement (moles/volume) 143 mmol/L 135-145 Serum or plasma potassium measurement (moles/volume) 3.2 mmol/L 3.6-5.0 Serum or plasma chloride measurement (moles/volume) 101 mmol/L 98-107 Carbon dioxide 29 mmol/L 21-32 Serum or plasma anion gap determination (moles/volume) 13 mmol/L 5-14 Serum or plasma urea nitrogen measurement (mass/volume ) 6 mg/dL 7-18 Serum or plasma creatinine measurement (mass/volume) 0.74 mg/dL 0.60-1.30 Serum or plasma urea nitrogen/creatinine mass ratio 8 NRG Serum or plasma creatinine measurement w ith calculation of estimated glomerular filtration rate > NRG Serum or plasma glucose measurement (mass/volume) 101 mg/dL 70-105 Serum or plasma calcium measurement (mass/volume) 9.6 mg/dL 8.5-10.1 Serum or plasma total bilirubin measurement (mass/volu me) 0.7 mg/dL 0.1-1.0 Serum or plasma alkaline phosphatase mariama surement (enzymatic activity/volume) 53 U/L 40-136 Serum or plasma aspartate aminotransfera se measurement (enzymatic activity/volume) 28 U/L 5-34 Serum or plasma alanine aminotransferase measurement (enzymatic activity/volume) 32 U/L 0-55 Serum or plasma protein measurement (mass/volume) 7.0 g/dL 6.4-8.2 Serum or plasma albumin measurement (mass/volume) 4.1 g/dL 3.2-4.5 CALCIUM CORRECTED 9.5 mg/dL 8.5-10.1 Magnesium - 12/05/18 07:48 Magnesium 1.8 mg/dL 1.8-2.4 CBC AND DIFF (MANUAL DIFF IF NECESSARY) - 12/31/18 14:10 WBC 3.23 4.00-11.00 Hematocrit 39 36-45 Hemoglobin 12.8 12.0-15.0 MCH 31 27-34 MCHC 33 32-36 MCV 94 80-99 MPV 11.7 9.4-12.3 Platelet Count 123 140-400 RBC 4.10 4.00-5.00 RDW 13.6 11.5-14.5 % NEUTROPHILS 84 45-78 %LYMPHOCYTES 9 15-47 %MONOCYTES 7 0-12 %EOSINOPHILS 0 0-7 %BASOPHILS 0 0-2 # GRANULOCYTES 2.71 1.70-6.80 # LYMPHOCYTES 0.29 1.00-3.30 # MONOCYTES 0.22 0.20-0.90 # EOSINOPHILS 0.01 0.00-0.40 # BASOPHILS 0.00 0.00-0.10 COMPREHENSIVE METABOLIC PANEL - 12/31/18 14:10 Alanine Aminotransferase 26 0-34 Albumin 3.9 3.5-5.0 Alkaline Phosphatase 79 42-140 Aspartate Aminotransferase 29 15- 46 Blood Urea Nitrogen 12 7-26 Chloride 101 96-112 Carbon Dioxide 30 20-32 Creatinine 0.6 0.4-1.1 Glucose 197 70-100 Potassium 4.0 3.5-5.3 Sodium 141 133-147 Calcium 8.8 8.4-10.5 Anion Gap 11 TX 5-17 Protein Total Serum 6.7 6.0-8.2 BILIRUBIN TOTAL 0.7 0.2-1.3 GFR FEMALE AA 129 60-200 GFR FEMALE NON-AA 107 60-200 ERYTHROCYTE SEDIMENTATION RATE - 9 14:10 SED RATE 11 0-17 C-REACTIVE PROTEIN - 12/31/18 14:10 C Reactive Protein 7.1 0.0-10.0 Methicillin resistant Staphylococcus aur eus (MRSA) screening culture - 02/07/19 12:35 Methicillin resistant Staphylococcus aureus (MRSA) scr eening culture NEG NRG Methicillin resistant Staphylococcus aur eus (MRSA) screening culture - 04/01/19 00:00 Methicillin resistant Staphylococcus aureus (MRSA) scr eening culture NEG NRG Bacterial blood culture - 04/01/19 05:56 Bacterial blood culture NG NRG PT panel in platelet poor plasma by coag ulation assay - 04/01/19 06:15 Prothrombin time (PT) in platelet poor plasma by coagu lation assay 15.3 s 12.2-14.7 INR in platelet poor plasma or blood by coagulation as say 1.2 0.8-1.4 Activated partial thromboplastin time (a PTT) in platelet poor plasma bycoagulation assay - 04/01/19 06:15 Activated partial thromboplastin time (a PTT) in platelet poor plasma bycoagulation assay 25 s 24-35 Blood lactic acid measurement (moles/vol ume) - 04/01/19 06:15 Blood lactic acid measurement (moles/volume) 1.96 mmol/L 0.50-2.00 Comprehensive metabolic panel - 04/01/19 06:15 Serum or plasma sodium measurement (moles/volume) 137 mmol/L 135-145 Serum or plasma potassium measurement (moles/volume) 3.4 mmol/L 3.6-5.0 Serum or plasma chloride measurement (moles/volume) 101 mmol/L 98-107 Carbon dioxide 25 mmol/L 21-32 Serum or plasma anion gap determination (moles/volume) 11 mmol/L 5-14 Serum or plasma urea nitrogen measurement (mass/volume ) 9 mg/dL 7-18 Serum or plasma creatinine measurement (mass/volume) 0.53 mg/dL 0.60-1.30 Serum or plasma urea nitrogen/creatinine mass ratio 17 NRG Serum or plasma creatinine measurement w ith calculation of estimated glomerular filtration rate > NRG Serum or plasma glucose measurement (mass/volume) 106 mg/dL 70-105 Serum or plasma calcium measurement (mass/volume) 8.0 mg/dL 8.5-10.1 Serum or plasma total bilirubin measurement (mass/volu me) 1.3 mg/dL 0.1-1.0 Serum or plasma alkaline phosphatase mariama surement (enzymatic activity/volume) 70 U/L 40-136 Serum or plasma aspartate aminotransfera se measurement (enzymatic activity/volume) 56 U/L 5-34 Serum or plasma alanine aminotransferase measurement (enzymatic activity/volume) 53 U/L 0-55 Serum or plasma protein measurement (mass/volume) 5.4 g/dL 6.4-8.2 Serum or plasma albumin measurement (mass/volume) 3.2 g/dL 3.2-4.5 CALCIUM CORRECTED 8.6 mg/dL 8.5-10.1 Complete blood count (CBC) with automate d white blood cell (WBC) differential - 04/01/19 06:15 Blood leukocytes automated count (number/volume) 1.7 10*3/uL 4.3-11.0 Blood erythrocytes automated count (number/volume) 3.81 10*6/uL 4.35-5.85 Venous blood hemoglobin measurement (mass/volume) 11.5 g/dL 11.5-16.0 Blood hematocrit (volume fraction) 36 % 35-52 Automated erythrocyte mean corpuscular volume 93 [ foz_us] 80-99 Automated erythrocyte mean corpuscular h emoglobin (mass per erythrocyte) 30 pg 25-34 Automated erythrocyte mean corpuscular h emoglobin concentration measurement (mass/volume) 32 g/dL 32-36 Automated erythrocyte distribution width ratio 16. 3 % 10.0- 14.5 Automated blood platelet count (count/volume) 178 10*3/uL 130-400 Automated blood platelet mean volume measurement 10.4 [foz_us] 7.4-10.4 Automated blood neutrophils/100 leukocytes 88 % 42-75 Automated blood lymphocytes/100 leukocytes 3 % 12-44 Blood monocytes/100 leukocytes 8 % 0-12 Automated blood eosinophils/100 leukocytes 0 % 0-10 Automated blood basophils/100 leukocytes 0 % 0-10 Blood neutrophils automated count (number/volume) 1.5 10*3 1.8-7.8 Blood lymphocytes automated count (number/volume) 0.1 10*3 1.0-4.0 Blood monocytes automated count (number/volume) 0. 1 10*3 0.0-1.0 Automated eosinophil count 0.0 10*3/uL 0 .0-0.3 Automated blood basophil count (count/volume) 0.0 10*3/uL 0.0-0.1 Manual absolute plasma cell count - 03/12 06/29 06:15 Blood monocytes/100 leukocytes 7 % NR Manual blood segmented neutrophils/100 leukocytes 86 % NRG Manual blood lymphocytes/100 leukocytes 4 % NRG Blood lymphocytes variant/100 leukocytes 3 % NR Blood anisocytosis detection by light microscopy S LIGHT NRG Blood ovalocytes detection by light microscopy [facility] Blood poikilocytosis detection by light microscopy SLIGHT NRG Blood microcytes detection by light microscopy [facility] Bacterial blood culture - 04/01/19 06:15 FREE TEXT EXTERNAL PARTIAL SUSCEPTIBILITY REPORTED 04-04 NR QUANTITY OF GROWTH Isolated [facility] Bacterial blood culture [id number] [facility] FREE TEXT ENTRY 2 COMPLETE SUSCEPTIBILITY REPORTED 04-05 NR [facility] - 04/01/19 06:1 5 Gentamicin susceptibility test by minimum inhibitory c oncentration > NRG Trimethoprim/sulfamethoxazole susceptibi lity test by minimum inhibitoryconcentration <= NRG Levofloxacin susceptibility test by minimum inhibitory concentration > NRG Ampicillin susceptibility test by minimum inhibitory c oncentration > NRG Cefazolin susceptibility test by minimum inhibitory co ncentration > NRG Ceftriaxone susceptibility test by minimum inhibitory concentration > NRG Piperacillin/tazobactam susceptibility t est by minimum inhibitory concentration R NRG Ciprofloxacin susceptibility test by minimum inhibitor y concentration > NRG Meropenem susceptibility test by minimum inhibitory co ncentration <= NRG Amoxicillin and clavulanate potassium susc ZAIRA R NRG Imipenem susceptibility test by minimum inhibitory con centration <= NRG Influenza virus A and B antigen detectio n - 04/01/19 07:20 FLU RESULT NEGATIVE FOR INFLUENZA A AND B ANTIGENS BY IA NRG Blood lactic acid measurement (moles/vol ume) - 04/01/19 10:45 Blood lactic acid measurement (moles/volume) 2.56 mmol/L 0.50-2.00 Sputum Gram stain - 04/01/19 11:35 Sputum Gram stain relevant, interpret with caution NRG Bacterial sputum culture - 04/01/19 11:3 5 FREE TEXT EXTERNAL ZAIRA TO FOLLOW NRG QUANTITY OF GROWTH Many NRG Bacterial sputum culture [id number] NRG Capillary blood glucose measurement by g lucometer (mass/volume) - 04/01/19 12:10 Capillary blood glucose measurement by glucometer (mas s/volume) 57 mg/dL 70-110 Capillary blood glucose measurement by g lucometer (mass/volume) - 04/01/19 12:48 Capillary blood glucose measurement by glucometer (mas s/volume) 113 mg/dL 70-110 Serum or plasma lactate measurement (mol es/volume) - 04/01/19 13:00 Serum or plasma lactate measurement (moles/volume) 3.54 mmol/L 0.50-2.00 Complete urinalysis with reflex to cultu re - 04/01/19 15:00 Urine color determination YELLOW NRG Urine clarity determination CLEAR NR G Urine pH measurement by test strip 6.0 5-9 Specific gravity of urine by test strip <= 1.016-1.022 Urine protein assay by test strip, semi-quantitative NEGATIVE NEGATIVE Urine glucose detection by automated test strip NE GATIVE NEGATIVE Erythrocytes detection in urine sediment by light micr oscopy NEGATIVE NEGATIVE Urine ketones detection by automated test strip NE GATIVE NEGATIVE Urine nitrite detection by test strip NEGATIVE NEGATIVE Urine total bilirubin detection by test strip NEGA TIVE NEGATIVE Urine urobilinogen measurement by automated test strip (mass/volume) 0.2 mg/dL < = 1.0 Urine leukocyte esterase detection by dipstick NEG ATIVE NEGATIVE Automated urine sediment erythrocyte cou nt by microscopy (number/high power field) NONE NRG Automated urine sediment leukocyte count by microscopy (number/high power field) NONE NRG Bacteria detection in urine sediment by light microsco py NEGATIVE NRG Squamous epithelial cells detection in u rine sediment by light microscopy 0-2 NRG Crystals detection in urine sediment by light microsco py NONE NRG Casts detection in urine sediment by light microscopy NONE NRG Mucus detection in urine sediment by light microscopy NEGATIVE NRG Complete urinalysis with reflex to culture CULTURE PENDING NRG Bacterial urine culture - 04/01/19 15:00 Bacterial urine culture NG NRG Capillary blood glucose measurement by g lucometer (mass/volume) - 04/01/19 15:53 Capillary blood glucose measurement by glucometer (mas s/volume) 87 mg/dL 70-110 Blood lactic acid measurement (moles/vol ume) - 04/01/19 16:30 Blood lactic acid measurement (moles/volume) 3.55 mmol/L 0.50-2.00 Serum or plasma lactate measurement (mol es/volume) - 04/01/19 19:24 Serum or plasma lactate measurement (moles/volume) 5.05 mmol/L 0.50-2.00 Capillary blood glucose measurement by g lucometer (mass/volume) - 04/01/19 19:56 Capillary blood glucose measurement by glucometer (mas s/volume) 106 mg/dL 70-110 Capillary blood glucose measurement by g lucometer (mass/volume) - 04/01/19 23:19 Capillary blood glucose measurement by glucometer (mas s/volume) 134 mg/dL 70-110 Blood lactic acid measurement (moles/vol ume) - 04/02/19 00:30 Blood lactic acid measurement (moles/volume) 4.05 mmol/L 0.50-2.00 Complete blood count (CBC) with automate d white blood cell (WBC) differential - 04/02/19 03:46 Blood leukocytes automated count (number/volume) 7.4 10*3/uL 4.3-11.0 Blood erythrocytes automated count (number/volume) 3.58 10*6/uL 4.35-5.85 Venous blood hemoglobin measurement (mass/volume) 10.8 g/dL 11.5-16.0 Blood hematocrit (volume fraction) 33 % 35-52 Automated erythrocyte mean corpuscular volume 91 [ foz_us] 80-99 Automated erythrocyte mean corpuscular h emoglobin (mass per erythrocyte) 30 pg 25-34 Automated erythrocyte mean corpuscular h emoglobin concentration measurement (mass/volume) 33 g/dL 32-36 Automated erythrocyte distribution width ratio 17. 4 % 10.0- 14.5 Automated blood platelet count (count/volume) 237 10*3/uL 130-400 Automated blood platelet mean volume measurement 10.6 [foz_us] 7.4-10.4 Automated blood neutrophils/100 leukocytes 96 % 42-75 Automated blood lymphocytes/100 leukocytes 2 % 12-44 Blood monocytes/100 leukocytes 2 % 0-12 Automated blood eosinophils/100 leukocytes 0 % 0-10 Automated blood basophils/100 leukocytes 0 % 0-10 Blood neutrophils automated count (number/volume) 7.1 10*3 1.8-7.8 Blood lymphocytes automated count (number/volume) 0.2 10*3 1.0-4.0 Blood monocytes automated count (number/volume) 0. 1 10*3 0.0-1.0 Automated eosinophil count 0.0 10*3/uL 0 .0-0.3 Automated blood basophil count (count/volume) 0.0 10*3/uL 0.0-0.1 Blood lactic acid measurement (moles/vol ume) - 04/02/19 03:46 Blood lactic acid measurement (moles/volume) 2.93 mmol/L 0.50-2.00 Whole blood basic metabolic panel - 03/12 07/27 03:46 Serum or plasma sodium measurement (moles/volume) 145 mmol/L 135-145 Serum or plasma potassium measurement (moles/volume) 3.9 mmol/L 3.6-5.0 Serum or plasma chloride measurement (moles/volume) 112 mmol/L 98-107 Carbon dioxide 20 mmol/L 21-32 Serum or plasma anion gap determination (moles/volume) 13 mmol/L 5-14 Serum or plasma urea nitrogen measurement (mass/volume ) 11 mg/dL 7-18 Serum or plasma creatinine measurement (mass/volume) 0.60 mg/dL 0.60-1.30 Serum or plasma urea nitrogen/creatinine mass ratio 18 NRG Serum or plasma creatinine measurement w ith calculation of estimated glomerular filtration rate > NRG Serum or plasma glucose measurement (mass/volume) 142 mg/dL 70-105 Serum or plasma calcium measurement (mass/volume) 7.2 mg/dL 8.5-10.1 Serum or plasma phosphate measurement (m ass/volume) - 04/02/19 03:46 Serum or plasma phosphate measurement (mass/volume) 3.5 mg/dL 2.3-4.7 Magnesium - 04/02/19 03:46 Magnesium 1.4 mg/dL 1.6-2.4 PT panel in platelet poor plasma by coag ulation assay - 04/02/19 03:46 Prothrombin time (PT) in platelet poor plasma by coagu lation assay 21.8 s 12.2-14.7 INR in platelet poor plasma or blood by coagulation as say 1.8 0.8-1.4 Manual absolute plasma cell count - 03/12 07/27 03:46 Blood monocytes/100 leukocytes 4 % NRG Manual blood segmented neutrophils/100 leukocytes 95 % NRG Manual blood lymphocytes/100 leukocytes 1 % NRG Comprehensive metabolic panel - 04/02/19 06:20 Serum or plasma sodium measurement (moles/volume) 143 mmol/L 135-145 Serum or plasma potassium measurement (moles/volume) 3.6 mmol/L 3.6-5.0 Serum or plasma chloride measurement (moles/volume) 111 mmol/L 98-107 Carbon dioxide 22 mmol/L 21-32 Serum or plasma anion gap determination (moles/volume) 10 mmol/L 5-14 Serum or plasma urea nitrogen measurement (mass/volume ) 12 mg/dL 7-18 Serum or plasma creatinine measurement (mass/volume) 0.56 mg/dL 0.60-1.30 Serum or plasma urea nitrogen/creatinine mass ratio 21 NRG Serum or plasma creatinine measurement w ith calculation of estimated glomerular filtration rate > NRG Serum or plasma glucose measurement (mass/volume) 148 mg/dL 70-105 Serum or plasma calcium measurement (mass/volume) 6.9 mg/dL 8.5-10.1 Serum or plasma total bilirubin measurement (mass/volu me) 1.2 mg/dL 0.1-1.0 Serum or plasma alkaline phosphatase mariama surement (enzymatic activity/volume) 48 U/L 40-136 Serum or plasma aspartate aminotransfera se measurement (enzymatic activity/volume) 38 U/L 5-34 Serum or plasma alanine aminotransferase measurement (enzymatic activity/volume) 43 U/L 0-55 Serum or plasma protein measurement (mass/volume) 3.9 g/dL 6.4-8.2 Serum or plasma albumin measurement (mass/volume) 2.4 g/dL 3.2-4.5 CALCIUM CORRECTED 8.2 mg/dL 8.5-10.1 Vancomycin trough - 04/02/19 06:20 Vancomycin trough 8.5 ug/mL 10.0-20.0 Serum or plasma lactate measurement (mol es/volume) - 04/02/19 06:20 Serum or plasma lactate measurement (moles/volume) 2.32 mmol/L 0.50-2.00 Blood lactic acid measurement (moles/vol ume) - 04/02/19 08:18 Blood lactic acid measurement (moles/volume) 2.59 mmol/L 0.50-2.00 Serum or plasma lactate measurement (mol es/volume) - 04/02/19 10:23 Serum or plasma lactate measurement (moles/volume) 2.35 mmol/L 0.50-2.00 Capillary blood glucose measurement by g lucometer (mass/volume) - 04/02/19 12:00 Capillary blood glucose measurement by glucometer (mas s/volume) 138 mg/dL 70-110 Blood lactic acid measurement (moles/vol ume) - 04/02/19 18:08 Blood lactic acid measurement (moles/volume) 2.08 mmol/L 0.50-2.00 Serum or plasma lactate measurement (mol es/volume) - 04/02/19 20:20 Serum or plasma lactate measurement (moles/volume) 2.41 mmol/L 0.50-2.00 Complete blood count (CBC) with automate d white blood cell (WBC) differential - 04/03/19 04:05 Blood leukocytes automated count (number/volume) 4.5 10*3/uL 4.3-11.0 Blood erythrocytes automated count (number/volume) 3.08 10*6/uL 4.35-5.85 Venous blood hemoglobin measurement (mass/volume) 9.4 g/dL 11.5-16.0 Blood hematocrit (volume fraction) 28 % 35-52 Automated erythrocyte mean corpuscular volume 92 [ foz_us] 80-99 Automated erythrocyte mean corpuscular h emoglobin (mass per erythrocyte) 31 pg 25-34 Automated erythrocyte mean corpuscular h emoglobin concentration measurement (mass/volume) 33 g/dL 32-36 Automated erythrocyte distribution width ratio 17. 5 % 10.0- 14.5 Automated blood platelet count (count/volume) 148 10*3/uL 130-400 Automated blood platelet mean volume measurement 10.7 [foz_us] 7.4-10.4 Automated blood neutrophils/100 leukocytes 95 % 42-75 Automated blood lymphocytes/100 leukocytes 2 % 12-44 Blood monocytes/100 leukocytes 2 % 0-12 Automated blood eosinophils/100 leukocytes 0 % 0-10 Automated blood basophils/100 leukocytes 0 % 0-10 Blood neutrophils automated count (number/volume) 4.3 10*3 1.8-7.8 Blood lymphocytes automated count (number/volume) 0.1 10*3 1.0-4.0 Blood monocytes automated count (number/volume) 0. 1 10*3 0.0-1.0 Automated eosinophil count 0.0 10*3/uL 0 .0-0.3 Automated blood basophil count (count/volume) 0.0 10*3/uL 0.0-0.1 Blood lactic acid measurement (moles/vol ume) - 04/03/19 04:05 Blood lactic acid measurement (moles/volume) 1.79 mmol/L 0.50-2.00 Comprehensive metabolic panel - 04/03/19 04:05 Serum or plasma sodium measurement (moles/volume) 143 mmol/L 135-145 Serum or plasma potassium measurement (moles/volume) 3.5 mmol/L 3.6-5.0 Serum or plasma chloride measurement (moles/volume) 111 mmol/L 98-107 Carbon dioxide 23 mmol/L 21-32 Serum or plasma anion gap determination (moles/volume) 9 mmol/L 5-14 Serum or plasma urea nitrogen measurement (mass/volume ) 14 mg/dL 7-18 Serum or plasma creatinine measurement (mass/volume) 0.64 mg/dL 0.60-1.30 Serum or plasma urea nitrogen/creatinine mass ratio 22 NRG Serum or plasma creatinine measurement w ith calculation of estimated glomerular filtration rate > NRG Serum or plasma glucose measurement (mass/volume) 109 mg/dL 70-105 Serum or plasma calcium measurement (mass/volume) 7.4 mg/dL 8.5-10.1 Serum or plasma total bilirubin measurement (mass/volu me) 1.0 mg/dL 0.1-1.0 Serum or plasma alkaline phosphatase mariama surement (enzymatic activity/volume) 47 U/L 40-136 Serum or plasma aspartate aminotransfera se measurement (enzymatic activity/volume) 37 U/L 5-34 Serum or plasma alanine aminotransferase measurement (enzymatic activity/volume) 36 U/L 0-55 Serum or plasma protein measurement (mass/volume) 4.1 g/dL 6.4-8.2 Serum or plasma albumin measurement (mass/volume) 2.4 g/dL 3.2-4.5 CALCIUM CORRECTED 8.7 mg/dL 8.5-10.1 Serum or plasma phosphate measurement (m ass/volume) - 04/03/19 04:05 Serum or plasma phosphate measurement (mass/volume) 2.4 mg/dL 2.3-4.7 Magnesium - 04/03/19 04:05 Magnesium 1.8 mg/dL 1.6-2.4 Vancomycin trough - 04/03/19 04:05 Vancomycin trough 18.4 ug/mL 10.0-20.0 Bacterial blood culture - 04/03/19 10:41 Bacterial blood culture NG NRG Bacterial blood culture - 04/03/19 10:43 Bacterial blood culture NG NRG Complete blood count (CBC) with automate d white blood cell (WBC) differential - 04/04/19 04:48 Blood leukocytes automated count (number/volume) 8.3 10*3/uL 4.3-11.0 Blood erythrocytes automated count (number/volume) 3.30 10*6/uL 4.35-5.85 Venous blood hemoglobin measurement (mass/volume) 9.9 g/dL 11.5-16.0 Blood hematocrit (volume fraction) 30 % 35-52 Automated erythrocyte mean corpuscular volume 92 [ foz_us] 80-99 Automated erythrocyte mean corpuscular h emoglobin (mass per erythrocyte) 30 pg 25-34 Automated erythrocyte mean corpuscular h emoglobin concentration measurement (mass/volume) 33 g/dL 32-36 Automated erythrocyte distribution width ratio 17. 0 % 10.0- 14.5 Automated blood platelet count (count/volume) 172 10*3/uL 130-400 Automated blood platelet mean volume measurement 11.2 [foz_us] 7.4-10.4 Automated blood neutrophils/100 leukocytes 91 % 42-75 Automated blood lymphocytes/100 leukocytes 2 % 12-44 Blood monocytes/100 leukocytes 6 % 0-12 Automated blood eosinophils/100 leukocytes 0 % 0-10 Automated blood basophils/100 leukocytes 0 % 0-10 Blood neutrophils automated count (number/volume) 7.6 10*3 1.8-7.8 Blood lymphocytes automated count (number/volume) 0.2 10*3 1.0-4.0 Blood monocytes automated count (number/volume) 0. 5 10*3 0.0-1.0 Automated eosinophil count 0.0 10*3/uL 0 .0-0.3 Automated blood basophil count (count/volume) 0.0 10*3/uL 0.0-0.1 Comprehensive metabolic panel - 04/04/19 04:48 Serum or plasma sodium measurement (moles/volume) 139 mmol/L 135-145 Serum or plasma potassium measurement (moles/volume) 3.7 mmol/L 3.6-5.0 Serum or plasma chloride measurement (moles/volume) 108 mmol/L 98-107 Carbon dioxide 23 mmol/L 21-32 Serum or plasma anion gap determination (moles/volume) 8 mmol/L 5-14 Serum or plasma urea nitrogen measurement (mass/volume ) 15 mg/dL 7-18 Serum or plasma creatinine measurement (mass/volume) 0.75 mg/dL 0.60-1.30 Serum or plasma urea nitrogen/creatinine mass ratio 20 NRG Serum or plasma creatinine measurement w ith calculation of estimated glomerular filtration rate > NRG Serum or plasma glucose measurement (mass/volume) 117 mg/dL 70-105 Serum or plasma calcium measurement (mass/volume) 7.5 mg/dL 8.5-10.1 Serum or plasma total bilirubin measurement (mass/volu me) 0.8 mg/dL 0.1-1.0 Serum or plasma alkaline phosphatase mariama surement (enzymatic activity/volume) 75 U/L 40-136 Serum or plasma aspartate aminotransfera se measurement (enzymatic activity/volume) 149 U/L 5-34 Serum or plasma alanine aminotransferase measurement (enzymatic activity/volume) 115 U/L 0-55 Serum or plasma protein measurement (mass/volume) 4.3 g/dL 6.4-8.2 Serum or plasma albumin measurement (mass/volume) 2.6 g/dL 3.2-4.5 CALCIUM CORRECTED 8.6 mg/dL 8.5-10.1 Magnesium - 04/04/19 04:48 Magnesium 1.8 mg/dL 1.6-2.4 Complete blood count (CBC) with automate d white blood cell (WBC) differential - 04/05/19 04:10 Blood leukocytes automated count (number/volume) 23.0 10*3/uL 4.3-11.0 Blood erythrocytes automated count (number/volume) 3.33 10*6/uL 4.35-5.85 Venous blood hemoglobin measurement (mass/volume) 10.1 g/dL 11.5-16.0 Blood hematocrit (volume fraction) 30 % 35-52 Automated erythrocyte mean corpuscular volume 91 [ foz_us] 80-99 Automated erythrocyte mean corpuscular h emoglobin (mass per erythrocyte) 30 pg 25-34 Automated erythrocyte mean corpuscular h emoglobin concentration measurement (mass/volume) 33 g/dL 32-36 Automated erythrocyte distribution width ratio 17. 2 % 10.0- 14.5 Automated blood platelet count (count/volume) 194 10*3/uL 130-400 Automated blood platelet mean volume measurement 10.6 [foz_us] 7.4-10.4 Comprehensive metabolic panel - 04/05/19 04:10 Serum or plasma sodium measurement (moles/volume) 139 mmol/L 135-145 Serum or plasma potassium measurement (moles/volume) 3.5 mmol/L 3.6-5.0 Serum or plasma chloride measurement (moles/volume) 107 mmol/L 98-107 Carbon dioxide 23 mmol/L 21-32 Serum or plasma anion gap determination (moles/volume) 9 mmol/L 5-14 Serum or plasma urea nitrogen measurement (mass/volume ) 16 mg/dL 7-18 Serum or plasma creatinine measurement (mass/volume) 0.91 mg/dL 0.60-1.30 Serum or plasma urea nitrogen/creatinine mass ratio 18 NRG Serum or plasma creatinine measurement w ith calculation of estimated glomerular filtration rate > NRG Serum or plasma glucose measurement (mass/volume) 108 mg/dL 70-105 Serum or plasma calcium measurement (mass/volume) 7.7 mg/dL 8.5-10.1 Serum or plasma total bilirubin measurement (mass/volu me) 0.8 mg/dL 0.1-1.0 Serum or plasma alkaline phosphatase mariama surement (enzymatic activity/volume) 101 U/L 40-136 Serum or plasma aspartate aminotransfera se measurement (enzymatic activity/volume) 106 U/L 5-34 Serum or plasma alanine aminotransferase measurement (enzymatic activity/volume) 121 U/L 0-55 Serum or plasma protein measurement (mass/volume) 4.3 g/dL 6.4-8.2 Serum or plasma albumin measurement (mass/volume) 2.6 g/dL 3.2-4.5 CALCIUM CORRECTED 8.8 mg/dL 8.5-10.1 Manual absolute plasma cell count - 03/12 10/27 04:10 Blood monocytes/100 leukocytes 9 % NRG Manual blood segmented neutrophils/100 leukocytes 73 % NRG Manual blood lymphocytes/100 leukocytes 4 % NRG Manual blood lymphocytes variant/100 leukocytes 14 % NRG Complete blood count (CBC) with automate d white blood cell (WBC) differential - 04/06/19 04:34 Blood leukocytes automated count (number/volume) 36.1 10*3/uL 4.3-11.0 Blood erythrocytes automated count (number/volume) 3.20 10*6/uL 4.35-5.85 Venous blood hemoglobin measurement (mass/volume) 9.7 g/dL 11.5-16.0 Blood hematocrit (volume fraction) 29 % 35-52 Automated erythrocyte mean corpuscular volume 91 [ foz_us] 80-99 Automated erythrocyte mean corpuscular h emoglobin (mass per erythrocyte) 30 pg 25-34 Automated erythrocyte mean corpuscular h emoglobin concentration measurement (mass/volume) 33 g/dL 32-36 Automated erythrocyte distribution width ratio 17. 0 % 10.0- 14.5 Automated blood platelet count (count/volume) 168 10*3/uL 130-400 Automated blood platelet mean volume measurement 10.4 [foz_us] 7.4-10.4 Automated blood neutrophils/100 leukocytes 84 % 42-75 Automated blood lymphocytes/100 leukocytes 6 % 12-44 Blood monocytes/100 leukocytes 9 % 0-12 Automated blood eosinophils/100 leukocytes 0 % 0-10 Automated blood basophils/100 leukocytes 1 % 0-10 Blood neutrophils automated count (number/volume) 30.3 10*3 1.8-7.8 Blood lymphocytes automated count (number/volume) 2.1 10*3 1.0-4.0 Blood monocytes automated count (number/volume) 3. 4 10*3 0.0-1.0 Automated eosinophil count 0.0 10*3/uL 0 .0-0.3 Automated blood basophil count (count/volume) 0.3 10*3/uL 0.0-0.1 Comprehensive metabolic panel - 04/06/19 04:34 Serum or plasma sodium measurement (moles/volume) 139 mmol/L 135-145 Serum or plasma potassium measurement (moles/volume) 3.7 mmol/L 3.6-5.0 Serum or plasma chloride measurement (moles/volume) 106 mmol/L 98-107 Carbon dioxide 26 mmol/L 21-32 Serum or plasma anion gap determination (moles/volume) 7 mmol/L 5-14 Serum or plasma urea nitrogen measurement (mass/volume ) 14 mg/dL 7-18 Serum or plasma creatinine measurement (mass/volume) 0.81 mg/dL 0.60-1.30 Serum or plasma urea nitrogen/creatinine mass ratio 17 NRG Serum or plasma creatinine measurement w ith calculation of estimated glomerular filtration rate > NRG Serum or plasma glucose measurement (mass/volume) 144 mg/dL 70-105 Serum or plasma calcium measurement (mass/volume) 7.5 mg/dL 8.5-10.1 Serum or plasma total bilirubin measurement (mass/volu me) 0.6 mg/dL 0.1-1.0 Serum or plasma alkaline phosphatase mariama surement (enzymatic activity/volume) 129 U/L 40-136 Serum or plasma aspartate aminotransfera se measurement (enzymatic activity/volume) 57 U/L 5-34 Serum or plasma alanine aminotransferase measurement (enzymatic activity/volume) 83 U/L 0-55 Serum or plasma protein measurement (mass/volume) 4.2 g/dL 6.4-8.2 Serum or plasma albumin measurement (mass/volume) 2.5 g/dL 3.2-4.5 CALCIUM CORRECTED 8.7 mg/dL 8.5-10.1 Magnesium - 04/06/19 04:34 Magnesium 1.7 mg/dL 1.6-2.4 Bacterial blood culture - 05/03/19 10:25 Bacterial blood culture NG NRG Bacterial blood culture - 05/03/19 10:25 Bacterial blood culture NG NRG Complete blood count (CBC) with automate d white blood cell (WBC) differential - 06/09/19 13:43 Blood leukocytes automated count (number/volume) 2.9 10*3/uL 4.3-11.0 Blood erythrocytes automated count (number/volume) 2.79 10*6/uL 4.35-5.85 Venous blood hemoglobin measurement (mass/volume) 9.0 g/dL 11.5-16.0 Blood hematocrit (volume fraction) 28 % 35-52 Automated erythrocyte mean corpuscular volume 100 [foz_us] 80-99 Automated erythrocyte mean corpuscular h emoglobin (mass per erythrocyte) 32 pg 25-34 Automated erythrocyte mean corpuscular h emoglobin concentration measurement (mass/volume) 32 g/dL 32-36 Automated erythrocyte distribution width ratio 18. 7 % 10.0- 14.5 Automated blood platelet count (count/volume) 20 1 0*3/uL 130-400 Automated blood neutrophils/100 leukocytes 69 % 42-75 Automated blood lymphocytes/100 leukocytes 6 % 12-44 Blood monocytes/100 leukocytes 19 % 0-12 Automated blood eosinophils/100 leukocytes 1 % 0-10 Automated blood basophils/100 leukocytes 1 % 0-10 Blood neutrophils automated count (number/volume) 2.0 10*3 1.8-7.8 Blood lymphocytes automated count (number/volume) 0.2 10*3 1.0-4.0 Blood monocytes automated count (number/volume) 0. 5 10*3 0.0-1.0 Automated eosinophil count 0.0 10*3/uL 0 .0-0.3 Automated blood basophil count (count/volume) 0.0 10*3/uL 0.0-0.1 Whole blood basic metabolic panel - 05/13 13:43 Serum or plasma sodium measurement (moles/volume) 135 mmol/L 135-145 Serum or plasma potassium measurement (moles/volume) 3.8 mmol/L 3.6-5.0 Serum or plasma chloride measurement (moles/volume) 99 mmol/L 98-107 Carbon dioxide 26 mmol/L 21-32 Serum or plasma anion gap determination (moles/volume) 10 mmol/L 5-14 Serum or plasma urea nitrogen measurement (mass/volume ) 7 mg/dL 7-18 Serum or plasma creatinine measurement (mass/volume) 0.68 mg/dL 0.60-1.30 Serum or plasma urea nitrogen/creatinine mass ratio 10 NRG Serum or plasma creatinine measurement w ith calculation of estimated glomerular filtration rate > NRG Serum or plasma glucose measurement (mass/volume) 110 mg/dL 70-105 Serum or plasma calcium measurement (mass/volume) 8.0 mg/dL 8.5-10.1 URINALYSIS - 06/24/19 14:30 APPEARANCE, URINE Yellow NRG GLUCOSE URINE Negative Negative BILIRUBIN URINE Moderate Negative KETONES URINE Small Negative SPECIFIC GRAVITY UA 1.025 TX 1.001-1.03 0 HEMOGLOBIN URINE Trace Negative PH URINE 6.5 TX 5.0-8.0 PROTEIN URINE QUAL 30 Negative UROBILINOGEN URINE Negative Negative NITRITE URINE Positive Negative LEUKOCYTE ESTERASE Negative Negative URINALYSIS MICROSCOPIC ONLY - 06/24/19 1 4:30 MICROSCOPIC RBC URINE 0-5 0-5 MICROSCOPIC WBC URINE 0-5 0-5 EPITHELIAL CELLS Small Absent HYALINE CAST Absent Absent BACTERIA Large Absent CULTURE, URINE - 06/24/19 14:30 Culture result Submission of a repeat speci men is suggested. NRG BASIC METABOLIC PANEL - 06/24/19 14:44 Blood Urea Nitrogen 11 7-26 Chloride 98 96-112 Carbon Dioxide 28 20-32 Creatinine 0.7 0.4-1.1 Glucose 138 70-100 Potassium 4.5 3.5-5.3 Sodium 135 133-147 Calcium 8.6 8.4-10.5 Anion Gap 9 TX 5-17 GFR FEMALE AA 108 60-200 GFR FEMALE NON-AA 90 60-200 CBC AND DIFF (MANUAL DIFF IF NECESSARY) - 06/24/19 14:44 WBC 10.09 4.00-11.00 Hematocrit 29 36-45 Hemoglobin 9.8 12.0-15.0 MCH 34 27-34 MCHC 34 32-36 MCV 100 80-99 Platelet Count 20 140-400 RBC 2.90 4.00-5.00 RDW 19.9 11.5-14.5 Ovalocytes Present Absent % NEUTROPHILS 49 45-78 %LYMPHOCYTES 9 15-47 %MONOCYTES 13 0-12 %EOSINOPHILS 1 0-7 %BASOPHILS 0 0-2 % IMM GRANS 0 TX 0-1 # GRANULOCYTES 7.57 1.7-6.8 # LYMPHOCYTES 1.11 1.0-3.3 # MONOCYTES 1.31 0.2-0.9 # EOSINOPHILS 0.10 0.0-0.4 # BASOPHILS 0.02 0.0-0.1 % BANDS 20 0-14 % METAMYELOCYTES 3 0-0 %MYELOCYTES 3 0-0 TEAR DROP CELLS Present Absent % ATYPICAL LYMPHOCYTES 2 0-5 C3 COMPLEMENT - 06/24/19 14:44 C3 Complement 86 83-172 C4 COMPLEMENT - 06/24/19 14:44 C4 Complement 13 14-44 DNA ANTIBODY - 06/24/19 14:44 DNA Antibody <1 0-9 Complete blood count (CBC) with automate d white blood cell (WBC) differential - 07/07/19 12:54 Blood leukocytes automated count (number/volume) 2.3 10*3/uL 4.3-11.0 Blood erythrocytes automated count (number/volume) 2.28 10*6/uL 4.35-5.85 Venous blood hemoglobin measurement (mass/volume) 7.7 g/dL 11.5-16.0 Blood hematocrit (volume fraction) 23 % 35-52 Automated erythrocyte mean corpuscular volume 102 [foz_us] 80-99 Automated erythrocyte mean corpuscular h emoglobin (mass per erythrocyte) 34 pg 25-34 Automated erythrocyte mean corpuscular h emoglobin concentration measurement (mass/volume) 33 g/dL 32-36 Automated erythrocyte distribution width ratio 21. 5 % 10.0- 14.5 Automated blood platelet count (count/volume) 28 1 0*3/uL 130-400 Automated blood neutrophils/100 leukocytes 88 % 42-75 Automated blood lymphocytes/100 leukocytes 5 % 12-44 Blood monocytes/100 leukocytes 5 % 0-12 Automated blood eosinophils/100 leukocytes 1 % 0-10 Automated blood basophils/100 leukocytes 0 % 0-10 Blood neutrophils automated count (number/volume) 2.1 10*3 1.8-7.8 Blood lymphocytes automated count (number/volume) 0.1 10*3 1.0-4.0 Blood monocytes automated count (number/volume) 0. 1 10*3 0.0-1.0 Automated eosinophil count 0.0 10*3/uL 0 .0-0.3 Automated blood basophil count (count/volume) 0.0 10*3/uL 0.0-0.1 Whole blood basic metabolic panel - 06/12 11/27 12:54 Serum or plasma sodium measurement (moles/volume) 134 mmol/L 135-145 Serum or plasma potassium measurement (moles/volume) 4.2 mmol/L 3.6-5.0 Serum or plasma chloride measurement (moles/volume) 98 mmol/L 98-107 Carbon dioxide 27 mmol/L 21-32 Serum or plasma anion gap determination (moles/volume) 9 mmol/L 5-14 Serum or plasma urea nitrogen measurement (mass/volume ) 15 mg/dL 7-18 Serum or plasma creatinine measurement (mass/volume) 0.70 mg/dL 0.60-1.30 Serum or plasma urea nitrogen/creatinine mass ratio 21 NRG Serum or plasma creatinine measurement w ith calculation of estimated glomerular filtration rate > NRG Serum or plasma glucose measurement (mass/volume) 187 mg/dL 70-105 Serum or plasma calcium measurement (mass/volume) 8.0 mg/dL 8.5-10.1 Body fluid cell count - 07/14/19 11:38 Specimen source identification of body fluid PERIT ON NRG Evaluation of color of body fluid YELLOW NRG Determination of appearance of body fluid SLT CLDY NRG Body fluid leukocytes count (number/volume) 128 /u L NRG Body fluid erythrocytes count (number/volume) 293 /uL NRG Manual body fluid polymorphonuclear cells/100 leukocyt es 3 % NRG Manual body fluid mononuclear cells/100 leukocytes 3 % NRG Manual body fluid lymphocytes/100 leukocytes 91 % NR Manual body fluid other cell count (number) 3 % NRG Glucose body fluid - 07/14/19 11:38 Glucose body fluid 85 mg/dL NRG Body fluid total protein measurement - 0 07/14/19 11:38 Body fluid total protein measurement 0.8 g/dL NRG Body fluid/serum or plasma lactate dehyd rogenase (LDH) ratio - 07/14/19 11:38 Body fluid/serum or plasma lactate dehydrogenase (LDH) ratio 57 U/L NRG Amylase body fluid - 07/14/19 11:38 Amylase body fluid 6 U/L NRG Creatinine body fluid - 07/14/19 11:38 Creatinine body fluid 0.57 mg/dL NRG Bacteria identification in isolate by an aerobe culture - 07/14/19 11:38 Bacteria identification in isolate by anaerobe culture NOANA NRG Gram stain microscopy - 07/14/19 11:38 Gram stain microscopy No bacteria seen NRG AFB CULT T STAIN TISSUE/FLUID - 07/14/19 11:38 Bacteria identification in wound by cult ure - 07/14/19 11:38 Bacteria identification in wound by culture [facility] Fungus culture - 07/14/19 11:38 Whole blood basic metabolic panel - 07/10 09/27 12:30 Serum or plasma sodium measurement (moles/volume) 129 mmol/L 135-145 Serum or plasma potassium measurement (moles/volume) 3.8 mmol/L 3.6-5.0 Serum or plasma chloride measurement (moles/volume) 95 mmol/L 98-107 Carbon dioxide 24 mmol/L 21-32 Serum or plasma anion gap determination (moles/volume) 10 mmol/L 5-14 Serum or plasma urea nitrogen measurement (mass/volume ) 16 mg/dL 7-18 Serum or plasma creatinine measurement (mass/volume) 0.62 mg/dL 0.60-1.30 Serum or plasma urea nitrogen/creatinine mass ratio 26 NRG Serum or plasma creatinine measurement w ith calculation of estimated glomerular filtration rate > NRG Serum or plasma glucose measurement (mass/volume) 91 mg/dL 70-105 Serum or plasma calcium measurement (mass/volume) 7.6 mg/dL 8.5-10.1 Complete blood count (CBC) with automate d white blood cell (WBC) differential - 08/03/19 12:30 Blood leukocytes automated count (number/volume) 0.9 10*3/uL 4.3-11.0 Blood erythrocytes automated count (number/volume) 2.89 10*6/uL 4.35-5.85 Venous blood hemoglobin measurement (mass/volume) 9.7 g/dL 11.5-16.0 Blood hematocrit (volume fraction) 29 % 35-52 Automated erythrocyte mean corpuscular volume 102 [foz_us] 80-99 Automated erythrocyte mean corpuscular h emoglobin (mass per erythrocyte) 34 pg 25-34 Automated erythrocyte mean corpuscular h emoglobin concentration measurement (mass/volume) 33 g/dL 32-36 Automated erythrocyte distribution width ratio 17. 7 % 10.0- 14.5 Automated blood platelet count (count/volume) 15 1 0*3/uL 130-400 Automated blood platelet mean volume measurement T PRODUCT TESTER FIBERGLASS 7.4- 10.4 Automated blood neutrophils/100 leukocytes 72 % 42-75 Automated blood lymphocytes/100 leukocytes 17 % 12-44 Blood monocytes/100 leukocytes 6 % 0-12 Automated blood eosinophils/100 leukocytes 2 % 0-10 Automated blood basophils/100 leukocytes 1 % 0-10 Blood neutrophils automated count (number/volume) 0.6 10*3 1.8-7.8 Blood lymphocytes automated count (number/volume) 0.2 10*3 1.0-4.0 Blood monocytes automated count (number/volume) 0. 4 10*3 0.0-1.0 Automated eosinophil count 0.0 10*3/uL 0 .0-0.3 Automated blood basophil count (count/volume) 0.0 10*3/uL 0.0-0.1 Encounters ACCT No. Visit Date/Time Discharge Status Pt. Type Provider Facility Loc./Unit Complaint [id number] 06/24/2019 12:58:32 23:59:59 CLS Outpatient [facility] SEALS RHEUM Lupus [id number] 06/24/2019 13:33:07 23:59:00 DIS Outpatient [facility] Malignant neoplasm of head of pancreas [id number] 03/18/2019 14:53:30 23:59:59 CLS Outpatient ANKIT SEALS [facility] Lupus [id number] 12/31/2018 13:09:29 23:59:59 CLS Outpatient [facility] Lupus [id number] 11/09/2018 09:32:00 23:59:00 DIS Outpatient DANITA [facility] IPF [id number] 10/01/2018 08:34:09 23:59:59 CLS Outpatient ANKIT SEALS [facility] Lupus [id number] 09/17/2018 14:11:54 23:59:59 CLS Outpatient [facility] Lupus [id number] 08/13/2019 22:28:00 Document Registration [id number] 06/30/2019 22:29:33 Document Registration [id number] 03/03/2019 16:32:50 Document Registration [id number] 12/10/2018 16:10:36 Document Registration [id number] 11/25/2018 17:11:41 Document Registration [id number] 10/28/2018 20:18:29 Document Registration [id number] 10/20/2018 17:19:00 Document Registration [id number] 09/28/2018 22:16:54 Document Registration [id number] 08/04/2019 13:40:00 00:01:00 DIS Outpatient [facility]Y [facility] ONC [id number] 08/03/2019 12:19:00 23:59:59 CLS Outpatient LISY RUIZ [facility] FS BMP CBC [id number] 07/28/2019 13:01:00 23:59:59 CLS Outpatient PARTH COPELAND DO B [facility] RAD ASCITES [id number] 07/14/2019 10:37:00 23:59:59 CLS Outpatient MIN KAUFMAN [facility] B [facility] RAD PANCREATIC CANCER [id number] 07/12/2019 13:13:00 23:59:59 CLS Outpatient MARIA ESTHER GAMEZ S [employer] [facility] RAD IMAGING TO REST AGE NEOPLASM [id number] 07/07/2019 12:51:00 23:59:59 CLS Outpatient LISY RUIZ [facility] LAB FS C25.0 [id number] 06/09/2019 13:32:00 23:59:59 CLS Outpatient GAMEZELKINAH S [employer] [facility] LAB FS C25.0 [id number] 05/26/2019 12:59:00 23:59:59 CLS Outpatient GAMEZ HILAH S [employer] [facility] LAB FS C25.0 R35.0 R39 .198 C25.0 [id number] 05/24/2019 13:52:00 23:59:59 CLS Outpatient GAMEZ HILAH S [employer] [facility] RAD PANCREATIC CA [id number] 05/03/2019 10:07:00 23:59:59 CLS Outpatient DELMERY KAUFMAN [facility] LAB HX OF BACTERICMA [id number] 04/27/2019 11:27:00 00:01:00 DIS Outpatient [facility] ONC [id number] 04/01/2019 08:17:00 14:15:00 DIS Inpatient SREE BOURGEOIS, JOHN Monroy [facility] 4TH NEUTROPENIC FEVER ALLEN CREATIC CA [id number] 02/07/2019 12:23:00 15:10:00 DIS Outpatient PARTH COPELAND DO [facility] SDC PANCREATIC CANCER [id number] 02/04/2019 05:31:00 12:36:00 DIS Outpatient PARTH COPELAND DO [facility] PREOP PANCREATIC CANCER [id number] 02/03/2019 12:12:00 23:59:59 CLS Outpatient LISY RUIZ [facility] RAD PANCREATIC CANCER [id number] 02/01/2019 09:45:00 23:59:59 CLS Outpatient MARIA ESTHER GAMEZ [facility] RAD PANCREATIC CANC ER,BACK PAIN,NAUSEA [id number] 12/22/2018 09:53:00 00:01:00 DIS Outpatient [facility]Y [facility] ONC [id number] 12/05/2018 07:18:00 09:27:00 DIS Emergency GELACIO BOURGEOIS, MARKELL Cormier [facility] ER VOMITING / HEAD ACHE [id number] 10/19/2018 10:35:00 23:59:59 CLS Outpatient MARIA ESTHER GAMEZ [employer] [facility] CARD PANCREATIC CA [id number] 09/21/2018 14:52:00 00:01:00 DIS Outpatient LISY RUIZ [facility] ONC [id number] 07/15/2018 10:01:00 019 23:59:59 CLS Outpatient SARA LISY Ordaz [facility] RAD IMAGING STUDY TO RESTAG E NEOPLASM [id number] 04/28/2018 13:10:00 019 00:01:00 DIS Outpatient SARA LISY Ordaz [facility] ONC [id number] 01/19/2018 10:44:00 018 00:01:00 DIS Outpatient SARA LISY Rea [facility] ONC [id number] 01/13/2018 09:59:00 018 23:59:59 CLS Outpatient SARALISY WILHELM V [facility] RAD PANCREATIC CANCER [id number] 12/03/2017 10:10:00 018 00:01:00 DIS Outpatient SARALISY WILHELM [facility] ONC [id number] 10/12/2017 10:14:00 018 23:59:59 CLS Outpatient SARA LISY Ordaz [facility] RAD C25.0 PANCREATIC CA [id number] 08/17/2017 13:49:00 018 00:01:00 DIS Outpatient SARA LISY Ordaz [facility] ONC [id number] 08/17/2017 14:23:00 018 23:59:59 [facility] R11.2 R10.9 [id number] 07/15/2017 12:57:00 018 23:59:59 CLS Outpatient LISY RUIZ [facility] RAD PANCREATIC CANCER [id number] 06/01/2017 13:41:00 018 13:49:00 DIS Outpatient SARALISY WILHELM N V [facility] ONC [id number] 03/30/2017 11:45:00 017 23:59:59 CLS Outpatient LISY RUIZ [facility] RAD C25.9 PANCREATIC CANCER [id number] 09/01/2016 13:34:00 ACT Unknown
[2019-08-18] MEDS ORDERED: LACTATED RINGERS 1,000 ML IV PRN (11:41)
--- NOTE | 2019-08-18 11:43 | Progress Note-Pre Operative ---
Pre-Operative Progress Note H&P Reviewed The H&P was reviewed, patient examined and no changes noted. Time Seen by Provider: 10:29 Date H&P Reviewed: Aug 18, 2019 Time H&P Reviewed: 10:30 Pre-Operative Diagnosis: Metastatic Pancreatic CA, Ascites Addendum Physician Addendum Addendum Pt is unfortunately on hospice but is having severe abdominal pain, secondary to ascites. She has had at least 2 paracentesis and now is requesting placement of permanent catheter to drain abdomen and relieve pain. Will place a Pleur-X catheter. Risks and complications discussed, not limited to pain, bleeding, infection, scar and damage to bowel. All questions answered to her satisfaction. Progress 11:40 PARTH COPELAND DO Aug 18, 2019 11:43
[2019-08-18] MEDS ORDERED: ceFAZolin INJECTION 1,000 MG ONE (11:44)
[2019-08-18] MEDS ORDERED: WATER (STERILE) FOR INJECTION 10 ML ONE (11:44)
[2019-08-18] MEDS ORDERED: HYDR200T78 PO (11:45)
[2019-08-18] MEDS ORDERED: SCOPOLAMINE 1.5 MG (TRANSDERM-SCOP) PATCH TOP ONE (11:45)
[2019-08-18] MEDS ORDERED: ONDANSETRON 4 MG/2 ML (SDV) Z0FRAN IV ONE (11:45)
[2019-08-18] MEDS ORDERED: MIDAZOLAM 2 MG/2 ML (VERSED) VIAL ONE (11:46)
[2019-08-18] MEDS ORDERED: fentaNYL INJECTION 100 MCG/2 ML AMP ONE (11:46)
[2019-08-18] MEDS ORDERED: PROPOFOL INJECTION 50 ML IV ONE (12:21)
[2019-08-18] MEDS ORDERED: DEXAMETHASONE 10 MG/ML (DECADRON) 1 ML VIAL ONE (12:21)
--- NOTE | 2019-08-18 12:36 | Progress Note-Post Operative ---
Post-Operative Progess Note Surgeon (s)/Potato Peeler (s) Surgeon PARTH COPELAND DO Potato Peeler: none Pre-Operative Diagnosis Metastatic Pancreatic CA, Ascites Post-Operative Diagnosis same Procedure & Operative Findings Date of Procedure 08/18/19 Procedure Performed/Findings Tunneled Pleur-X catheter placement with US guidance Anesthesia Type IV sedation by INTEGRATED CIRCUIT LAYOUT DESIGNER Estimated Blood Loss Estimated blood loss (mL): scant Specimens/Packing Specimens Removed 2000ml of ascitic fluid PARTH COPELAND DO Aug 18, 2019 12:36
--- NOTE | 2019-08-18 12:41 | Discharge Inst-Surgical ---
Discharge Inst-Surgical Depart Medication/Instructions New, Converted or Re-Newed RX: Other (home meds) Patient Instructions Follow up Appt: Make appointment for 1 week. [phone] Instructions: No lifting greater than 20 pounds. No strenuous activity. May shower in 24 hours, no tub bath or soaking. Use incentive spirometer at home as directed. No Smoking Skin/Wound Care: May remove bandages in am. You need to leave the Dermabond on incision it will fall off on it's own. Symptoms to Report: Appetite Changes, Extremity Discoloration, Numbness/Tingling, Swelling Increased, Bleeding Excessive, Eyesight Changes, Pain Increased, Urine Color Change, Constipation(Persistent), Fever over 101 degree F, Pain/Pressure in chest, Urinating Difficulty, Cough Up/Vomit Blood, Heart Beat Irreg/Pounding, Pain/Pressure in jaw, Cramps in feet or legs, Lightheadedness, Pain/Pressure in shoulder, Diarrhea(Persistent), Memory Changes Suddenly, Questions/Concerns, Weight gain consecutive days, Dizziness/Fainting, Nausea/Vomiting, Shortness of Breath, Weight gain over 2 pounds If questions or concerns contact your physician Or seek help at emergency department. Activity Activity Instructions: Avoid Stress to Incision Driving Instructions: No Driving/Refer to Dr. Padron Discharge Diet: No Restrictions Diet After 24 Hours: Clear Liquid if Nauseous If Any Problems/Questions/Issu: Contact Your Physician, Go to Emergency Room Skin/Wound Care Infection Signs and Symptoms: Increased Redness, Foul Odor of Wound, Increased Drainage, Skin Itchy or Has a Rash, Increased Swelling, Temperature Above 101 F Bathing Instructions: PARTH Romero DO Aug 18, 2019 12:41
[2019-08-18] MEDS ORDERED: morphine INJ 10 MG/ML 1ML (SYR OR VIAL) IVP ONE (13:00)
[2019-08-18] MEDS ORDERED: ONDANSETRON 4 MG/2 ML (SDV) Z0FRAN IVP PRN (13:00)
[2019-08-18] MEDS ORDERED: MEPERIDINE (DEMEROL) INJ 50 MG/ML IVP ONE (13:00)
--- NOTE | 2019-08-18 13:23 | Anesthesia-General Post-Op ---
MAC Patient Condition Mental Status/LOC: Same as Preop Cardiovascular: Satisfactory Nausea/Vomiting: Absent Respiratory: Satisfactory Pain: Controlled Complications: Absent Post Op Complications Complications None Follow Up Care/Instructions Patient Instructions None needed. Anesthesiology Discharge Order Discharge Order Patient is doing well, no complaints, stable vital signs, no apparent adverse anesthesia problems. No complications reported per nursing. ARACELI GARCIA CRNA Aug 18, 2019 13:23
--- NOTE | 2019-08-19 14:32 | OPERATIVE REPORT ---
DATE OF SERVICE: 08/18/2019 PREOPERATIVE DIAGNOSES: 1. Metastatic pancreatic cancer. 2. Ascites. POSTOPERATIVE DIAGNOSES: 1. Metastatic pancreatic cancer. 2. Ascites. PROCEDURE: Insertion of tunneled PleurX catheter with ultrasound guidance. SURGEON: Marty Frank DO SEMICONDUCTOR WAFERS ETCH OPERATOR: None. ANESTHESIA: IV sedation by the TRACTOR MECHANIC. BLOOD LOSS: Scant. FLUIDS: Per anesthesia. SPECIMEN: Got about 2000 mL of ascitic fluid. INDICATION FOR PROCEDURE: The patient is a 48-year-old female who unfortunately has metastatic pancreatic cancer. She is actually on hospice, but has continued to have abdominal pain from bursitis and needed a PleurX catheter placed that would be permanent so they could relieve her abdominal pain. FINDINGS: The patient had a PleurX catheter tunneled placed in the left lower quadrant without any difficulty. PROCEDURE NOTE: After informed consent was obtained, the patient was brought to the operating room, placed on the operating table in supine position. She was sterilely prepped and draped in normal fashion. Using ultrasound, I found a large pocket of fluid in the left lower quadrant. Local lidocaine was placed at the spot where we would access the abdominal cavity and then [address] we are going to tunnel the catheter. Using ultrasound guidance and needle advanced the needle into the abdominal cavity and immediately got a good amount of ascitic fluid, removed the needle. There is a catheter in place and then through the catheter, a guidewire was placed using the Seldinger technique. At this point, then made a stab incision along this guidewire as well as 5 cm away, had also infiltrated with local along the area where we were tunneled this and then tunneled the catheter from the more lateral incision towards the guidewire and then over the guidewire placed a dilator using Seldinger technique, removed this and then placed the larger dilator over the guidewire using Seldinger technique and then removed the inner portion of the dilator and then placed the PleurX catheter through the dilator and down into the abdomen, confirming placement with ultrasound and then removed this dilator sheath. Catheter was pushed further in and then secured the catheter with a 3-0 silk suture. The cuff was inside and under the skin to help protect from infection and closed the stab incision with 4-0 Vicryl suture simple interrupted stitches. Area was cleaned and dried, pressure dressing placed and drained 2000 mL of ascitic fluid. She was then sent to recovery room in stable condition. Sponge, instrument and needle count correct at the end of the case. Job ID: [id number] DocumentID: [id number] Dictated Date: 08/19/2019 10:05:05 Recruiting Manager Date: 08/19/2019 14:31:52 Dictated By: MARTY FRANK DO
== END 2019-08-18 14:05 | disposition home or self-care (01) ==
LOC: SDC 10:06
PROVIDERS: ATTEND Surgery
DX: R18.8 Other ascites (principal); C25.1 Malignant neoplasm of body of pancreas; E27.40 Unspecified adrenocortical insufficiency; Z88.1 Allergy status to other antibiotic agents; Z79.52 Long term (current) use of systemic steroids; Z79.899 Other long term (current) drug therapy; Z79.891 Long term (current) use of opiate analgesic; Z90.49 Acquired absence of other specified parts of digestive tract; Z90.710 Acquired absence of both cervix and uterus
CPT/HCPCS: 87081